=== PATIENT | male | born 1965 | race Caucasian/White ===

== ENCOUNTER 2023-01-08 21:51 | Inpatient (IN) | payer MEDICARE, SELFPAY ==
[2023-01-08 21:53] VITALS: BP 104/65; PULSE 150; RESP 15; TEMP 36.6; O2SAT 99; BMI 27.5
[2023-01-08 22:06] VITALS: PULSE 91; RESP 18; O2SAT 98
[2023-01-08 22:08] VITALS: BMI 29.7
--- NOTE | 2023-01-08 22:09 | EDS_ITS ---
HPI HPI - GI History of Present Illness Chief Complaint: GI Bleed Narrative Narrative: 57-year-old male past medical history of paroxysmal atrial fibrillation, not on medication or blood thinners, type 2 diabetes, presents with hematemesis that he had for approximately 15 minutes, multiple episodes. He states back in August, approximately 5 months ago he had 1 episode of vomiting bright red blood, then had dark stool for the next few days. It was a one-time thing and resolved. This evening, as he was getting ready to take a shower, he started vomiting blood. He denies any dark stools. States he vomited multiple times for 15 minutes and now feels lightheaded. He denies any chest pain or shortness of breath, no abdominal pain, no other symptoms. PFSH [facility] Medical History Chronic pain Diabetes mellitus type II, controlled, with no complications IBS (irritable bowel syndrome) Paroxysmal atrial fibrillation Persistent atrial fibrillation Allergy/AdvReac Type Severity Reaction Status Date / Time doxepin AdvReac Severe Itching Verified 11/10/17 11:06 enalapril AdvReac Other Verified 09/30/16 16:02 gabapentin [From Neurontin] AdvReac Other Verified 09/30/16 16:02 niacin AdvReac Other Verified 09/30/16 16:02 Cpqezrg-EWA-WwF Reductase AdvReac Pain in Verified 09/30/16 16:02 Inhibitor joints [Shqgqpz-Gai-Kon Reductase Inhibitor] Social History Smoking Status: Never smoker ROS ROS ED ROS Narrative Constitutional: No fever, no chills. HEENT: No sore throat. No neck pain. No loss of vision. No rhinorrhea. Cardiovascular: No chest pain. No palpitations. No pedal edema. Respiratory: No cough, no shortness of breath. Abdominal: No abdominal pain. Positive nausea and vomiting x15 minutes with hematemesis. No dark stool/black stool or melena Genitourinary: No dysuria. No hematuria. Musculoskeletal: No myalgias. No arthralgias. Neurologic: No headaches. No dizziness. Positive lightheadedness. Skin: No rash. No change in color. Psychiatric: No depression. No anxiety. EXAM Physical Exam Narrative Exam Narrative: Afebrile. Vital signs noted. HEENT: Normocephalic. Atraumatic. PERRL, EOMI. Neck soft and supple. No point tenderness or step off. Mild subconjunctival pallor. Cardiovascular: Regular rate and rhythm. No murmurs, rubs, or gallops appreciated. Respiratory: No tachypnea. Lungs clear to auscultation bilaterally. Gastrointestinal: Abdomen soft, nontender, with normoactive bowel sounds. No rebound or guarding. Neurological: Awake. Alert. Nonfocal, nonlateralizing. Skin: No rash. Normal color. No pallor of palms. Musculoskeletal: No pedal edema. Full range of motion extremities. Const Vital Signs: 01/08/23 21:53 01/08/23 22:06 01/08/23 22:19 Temperature 97.9 F Temperature Source Temporal Pulse Rate 150 H 91 Pulse Rate [Lying] 90 Pulse Rate [Sitting (for 1 minute prior to obtaining)] 87 Respiratory Rate 15 18 Blood Pressure 104/65 Blood Pressure [Lying] 72/51 L Blood Pressure [Sitting (for 1 minute prior to obtaining)] 66/44 L Blood Pressure Mean 78 Blood Pressure Mean [Lying] 58 Blood Pressure Mean [Sitting (for 1 minute prior to obtaining)] 51 Pulse Ox 99 98 Oxygen Delivery Method Room Air Room Air 01/08/23 22:57 Temperature 97.7 F L Temperature Source Temporal Pulse Rate 130 H Pulse Rate [Lying] Pulse Rate [Sitting (for 1 minute prior to obtaining)] Respiratory Rate 22 H Blood Pressure 93/77 Blood Pressure [Lying] Blood Pressure [Sitting (for 1 minute prior to obtaining)] Blood Pressure Mean 82 Blood Pressure Mean [Lying] Blood Pressure Mean [Sitting (for 1 minute prior to obtaining)] Pulse Ox 98 Oxygen Delivery Method Room Air MDM MDM MDM Narrative Medical decision making narrative: Concern is for upper GI bleeding from ulcer versus esophageal varices, however he states that he has not a large drinker of alcohol. He does not currently take blood thinners. NG will be inserted. I will obtain basic laboratory work to check for anemia and see if he has an elevated faded BUN. Coagulation studies will also be obtained. He intermittently had a tachycardia of atrial fibrillation but is currently rate controlled. I reviewed his prior record and laboratory work, he had normal hemoglobin at 1 time, I reviewed his labs today, he has a white count slightly elevated 11.2 which I think is nonspecific, hemoglobin 9.7, hematocrit 29.1, platelet count normal at 213. Coagulation studies show a normal INR of 1.4 with a PTT slightly elevated at 36.5. In review of his CMP, sodium is normal at 139, potassium 4.1, slightly elevated chloride of 108. He has a BUN of 22 with a normal creatinine of 0.87 consistent with upper GI bleed. Lipase is normal. AST slightly elevated at 39, ALT normal. Glucose is elevated at 178 consistent with diabetes, but he has a normal anion gap of 8. Orthostatics are positive in the sense that he dropped his blood pressure into the 70s systolic. With initial bolus, his blood pressure is 93 and he is mentating, but he did not become tachycardic on his orthostatics, but on the monitor, he went into atrial fibrillation intermittently with a heart rate in the 130s. NG was inserted with return of dark red blood. He was administered Protonix 80 mg bolus intravenou sly. Given his upper GI bleed, and hypotension, I discussed patient with the hospitalist, Dr. Darius Mosher, for admission and GI consultation. His blood pressure has improved with initial fluid bolus to 106 systolic. Patient is in stable condition. History & Record Review Discussion w/independent historian: Patient Additional record(s) reviewed:: Prior ED visit and Prior labs Lab Data Attestation: I reviewed the patient's lab results. Labs: Laboratory Results - last 24 hr 01/08/23 01/08/23 01/08/23 22:10 22:10 22:10 WBC 11.2 H RBC 3.41 L Hgb 9.7 L Hct 29.1 L MCV 85.3 MCH 28.4 MCHC 33.3 RDW Std Deviation 46.7 H RDW Coeff of Abimael 15.0 H Plt Count 213 MPV 11.4 Immature Gran % (Auto) 0.300 Neut % (Auto) 76.9 H Lymph % (Auto) 12.1 L [place] % (Auto) 8.7 Eos % (Auto) 1.3 Baso % (Auto) 0.7 Absolute Neuts (auto) 8.6 H Absolute Lymphs (auto) 1.35 Nucleated RBC % 0 PT 17.4 H INR 1.4 APTT 36.5 H Sodium 139 Potassium 4.1 Chloride 108 H Carbon Dioxide 23.0 Anion Gap 8 BUN 22 H Creatinine 0.87 Estim Creat Clear Calc 111.97 Est GFR (MDRD) Af Amer 116 Est GFR (MDRD) Non-Af 96 BUN/Creatinine Ratio 25.2 H Glucose 178 H Calcium 8.0 L Total Bilirubin 0.70 AST 39 H ALT 29 Alkaline Phosphatase 144 H Total Protein 6.7 Albumin 2.3 L Globulin 4.4 H Albumin/Globulin Ratio 0.5 L Lipase 27 Discharge Plan Triage Chief Complaint: GI Bleed ED Provider: Renan Dozier Dx/Rx/DC Orders Primary Care Provider: Care Physician,No Primary
[2023-01-08 22:19] VITALS: BP 66/44; BP 72/51; PULSE 87; PULSE 90
[2023-01-08 22:19] LABS: Absolute Lymphocyte Count 1.35 X10^3/uL (0.83-4.51); Absolute Neutrophil Count 8.6 X10^3/uL (2.0-7.7); Basophil# 0.08 X10^3/uL; Basophil% 0.7 % (0-1); Eosinophil# 0.15 X10^3/uL; Eosinophils% 1.3 % (0-5); Hematocrit 29.1 % (40-54); Hemoglobin 9.7 g/dL (13.0-16.5); Lymphocyte # 1.35 X10^3/ul (0.83-4.51); Lymphocyte % 12.1 % (19-41); Mean Corp Hgb Conc 33.3 g/dL (32-36); Mean Corpuscular Hgb 28.4 pg (27.0-32.0); Mean Corpuscular Volume 85.3 fL (80-94); Mean Platelet Vol. 11.4 fl (6.2-12.0); Monocyte# 0.97 X10^3/uL; Monocyte% 8.7 % (0-10); NRBC Flagged by Analyzer 0 % (0-5); Neutrophil # 8.57 X10^3/uL (2.7-7.7); Neutrophil % 76.9 % (47-70); Platelet Count 213 K/mm3 (150-450); RBC Distribution Width SD 46.7 fl (35.1-43.9); Red Blood Count 3.41 M/mm3 (4.6-6.2); White Blood Count 11.2 K/mm3 (4.4-11.0)
--- NOTE | 2023-01-08 22:33 | RAD_ITS ---
STUDY: X-RAY - ABDOMEN/PELVIS REASON FOR EXAM: Male, 57 years old. NG insertion. TECHNIQUE: A single AP view of the lower chest and upper abdomen. COMPARISON: September 30, 2016. FINDINGS: Normal visualized lung bases. There is an unremarkable bowel gas pattern. There is no demonstrated free abdominal air. There is an NG tube with its tip in the body of the stomach. The visualized liver, spleen and kidneys are grossly normal in size and morphology. Normal soft tissue structures. Normal visualized osseous structures. RAD/Abdomen Single View (Portable) IMPRESSION: NG tube as described. There is no acute cardiopulmonary disease or evidence of acute upper abdominal abnormality. Electronically Signed: Guevara Nick DO at 23:11 EDT ,
[2023-01-08 22:35] LABS: International Normalized Ratio 1.4; Prothrombin Time (Protime)PT. 17.4 SECONDS (11.7-14.9)
[2023-01-08 22:36] LABS: Partial Thromboplast Time 36.5 Seconds (24.1-36.2)
[2023-01-08 22:42] LABS: ALB/GLOB Ratio 0.5 RATIO (0.9-2.4); AST(SGOT) 39 U/L (15-37); Alanine Aminotransfer ALT/SGPT 29 U/L (16-61); Albumin, Serum 2.3 g/dL (3.2-5.0); Alkaline Phosphatase 144 U/L (45-117); Anion Gap 8 (5-15); BUN 22 mg/dL (7-18); BUN/Creat Ratio 25.2 RATIO (10-20); Chloride 108 mmol/L (98-107); Creatinine, Serum 0.87 mg/dL (0.70-1.30); EST Glomerular Filtration Rate 96 mL/min (>60); Est Glom Filt Rate - Afr Amer 116 mL/min (>60); Estimated Creatinine Clearance 111.97 ml/min; Globulin 4.4 g/dL (2.2-4.2); Glucose 178 mg/dL (74-106); Lipase 27 U/L (13-75); Potassium 4.1 mmol/L (3.5-5.1); Protein, Total 6.7 g/dL (6.4-8.2); Sodium Level 139 mmol/L (136-145)
[2023-01-08] MEDS: 0.9% Normal Saline 1,000 ML 1000 ML IV (22:45)
[2023-01-08] MEDS: Ondansetron 4 MG/2 ML Vial IV (22:45)
[2023-01-08 22:57] VITALS: BP 93/77; PULSE 130; RESP 22; TEMP 36.5; O2SAT 98
[2023-01-08 23:07] VITALS: BP 106/50; PULSE 133; RESP 22; O2SAT 97
[2023-01-08 23:25] LABS: AST(SGOT) 38 U/L (15-37); Alanine Aminotransfer ALT/SGPT 29 U/L (16-61); Albumin, Serum 2.3 g/dL (3.2-5.0); Alkaline Phosphatase 143 U/L (45-117); Bilirubin, Direct 0.21 mg/dL (0.00-0.30); Globulin 4.4 g/dL (2.2-4.2); Protein, Total 6.7 g/dL (6.4-8.2)
--- NOTE | 2023-01-08 23:29 | HP.PCM.HOS_ITS ---
HPI - General General Date of Admission: 01/08/23 Date of Service: 01/08/23 Chief Complaint: throwing up blood. HPI Narrative FIDE HODGSON, is a 57 M who presents with throwing up blood. This occured several times with about 75 cc blood in toilet, after vomiting. He presented to the ED this evening as a result, denies melena, denies symptoms in prior days and no dark bm previously. August, approximately 5 months ago he had 1 episode of v omiting bright red blood, then had dark stool for the next few days.?He had an endoscopy about 30 yrs ago for lactose intolerance investigation. he has IBS. He has gas and burping chronically. Is a lifetime ETOH user, about 2 shots of liquor a day at most, going periods without drinking. Does not follow with any doctors. NO prior knowledge of liver disease/cirrhosis. States abdomen swells due to the gas but doesn't recall any fluid such as acites. Does not have problems with leg swelling. He does not follow w/ a doctor. He is full code status. [facility] Medical History Chronic pain Diabetes mellitus type II, controlled, with no complications IBS (irritable bowel syndrome) Paroxysmal atrial fibrillation Persistent atrial fibrillation Allergy/AdvReac Type Severity Reaction Status Date / Time doxepin AdvReac Severe Itching Verified 11/10/17 11:06 enalapril AdvReac Other Verified 09/30/16 16:02 gabapentin [From Neurontin] AdvReac Other Verified 09/30/16 16:02 niacin AdvReac Other Verified 09/30/16 16:02 Omyptmp-SML-LlO Reductase AdvReac Pain in Verified 09/30/16 16:02 Inhibitor joints [Tqhssvz-Qcn-Ntq Reductase Inhibitor] Social History Smoking Status: Never smoker ROS ROS Narrative pertinent positives above in HPI Vital Signs Vital Signs Vital Signs: 01/08/23 21:53 01/08/23 22:06 01/08/23 22:19 Temperature 97.9 F Temperature Source Temporal Pulse Rate 150 H 91 Pulse Rate [Lying] 90 Pulse Rate [Sitting (for 1 minute prior to obtaining)] 87 Respiratory Rate 15 18 Blood Pressure 104/65 Blood Pressure [Lying] 72/51 L Blood Pressure [Sitting (for 1 minute prior to obtaining)] 66/44 L Blood Pressure Mean 78 Blood Pressure Mean [Lying] 58 Blood Pressure Mean [Sitting (for 1 minute prior to obtaining)] 51 Pulse Ox 99 98 Oxygen Delivery Method Room Air Room Air 01/08/23 22:57 01/08/23 23:07 Temperature 97.7 F L Temperature Source Temporal Pulse Rate 130 H 133 H Pulse Rate [Lying] Pulse Rate [Sitting (for 1 minute prior to obtaining)] Respiratory Rate 22 H 22 H Blood Pressure 93/77 106/50 L Blood Pressure [Lying] Blood Pressure [Sitting (for 1 minute prior to obtaining)] Blood Pressure Mean 82 68 Blood Pressure Mean [Lying] Blood Pressure Mean [Sitting (for 1 minute prior to obtaining)] Pulse Ox 98 97 Oxygen Delivery Method Room Air Room Air Weight Weight: 237 lb 10.533 oz Body Mass Index (BMI) 29.7 Results Lab / Micro Data Result Diagrams: 01/08/23 22:10 01/08/23 22:10 Labs: Laboratory Results - last 24 hr 01/08/23 22:10: WBC 11.2 H, RBC 3.41 L, Hgb 9.7 L, Hct 29.1 L, MCV 85.3, MCH 2 8.4, MCHC 33.3, RDW Std Deviation 46.7 H, RDW Coeff of Abimael 15.0 H, Plt Count 213, MPV 11.4, Immature Gran % (Auto) 0.300, Neut % (Auto) 76.9 H, Lymph % (Auto) 12.1 L, [place] % (Auto) 8.7, Eos % (Auto) 1.3, Baso % (Auto) 0.7, Absolute Neuts (auto) 8.6 H, Absolute Lymphs (auto) 1.35, Nucleated RBC % 0 01/08/23 22:10: PT 17.4 H, INR 1.4, APTT 36.5 H 01/08/23 22:10: Sodium 139, Potassium 4.1, Chloride 108 H, Carbon Dioxide 23.0, Anion Gap 8, BUN 22 H, Creatinine 0.87, Estim Creat Clear Calc 111.97, Est GFR (MDRD) Af Amer 116, Est GFR (MDRD) Non-Af 96, BUN/Creatinine Ratio 25.2 H, Glucose 178 H, Calcium 8.0 L, Total Bilirubin 0.70, AST 39 H, ALT 29, Alkaline Phosphatase 144 H, Total Protein 6.7, Albumin 2.3 L, Globulin 4.4 H, Albumin/Globulin Ratio 0.5 L, Lipase 27 01/08/23 22:10: Total Bilirubin 0.70, Direct Bilirubin 0.21, AST 38 H, ALT 29, Alkaline Phosphatase 143 H, Total Protein 6.7, Albumin 2.3 L, Globulin 4.4 H Radiology Impression KUB X-Ray 01/08/23 22:33 IMPRESSION: NG tube as described. There is no acute cardiopulmonary disease or evidence of acute upper abdominal abnormality. Electronically Signed: Guevara Nick DO at 23:11 EDT Reading Location ID and State: [facility] / [place] Tel [phone], Service support , Assessment & Plan Assessment/Plan (1) Paroxysmal atrial fibrillation: (2) Diabetes mellitus type II, controlled, with no complications: (3) Upper GI bleed: PLAN: Plan For upper GI bleed Continue NGT to [facility]WS Given alcohol use would consider cirrhosis and variceal hemorrhage. He has INR of 1.4 and platelets of 213. NPO status Ultrasound imaging tonight. IV PPI BID, just received 80 now Will obtain liver enzymes, no baseline here. Trend INR consult Gastroenterology Continue IV fluids at 125, bolus as needed. Paroxysmal A Fib - Was on Xarelto in past - Will resume beta jammie after acute hemorrhage event addressed - no AC at this time. Diabetes - SSI and glucose checks. Obtain A1c Charges/Coding Visit Charges Inpatient E&M: 57912 Init Hosp L3
--- NOTE | 2023-01-08 23:35 | EX.PCM.CON.G ---
HPI Consult Data Date of Consult: 01/08/23 HPI Narrative Reason for Consultation: Hematemesis HPI Narrative: FIED HODGSON, is a 57 M who presents with episodes of vomiting blood. He has a past medical history of alcoholism and possible cirrhosis. He also has a past medical history of paroxysmal atrial fibrillation, not on medication or blood thinners, type 2 diabetes, presents with hematemesis that he had for approximately 15 minutes, multiple episodes.? He states back in August, approximately 5 months ago he had 1 episode of vomiting bright red blood, then had dark stool for the next few days.? It was a one-time thing and resolved.? This evening, as he was getting ready to take a shower, he started vomiting blood.? He denies any dark stools.? States he vomited multiple times for 15 minutes and now feels lightheaded.? He denies any chest pain or shortness of breath, no abdominal pain, no other symptoms. Laboratory analysis displays: 01/08/23 22:10: WBC 11.2 H, RBC 3.41 L, Hgb 9.7 L, Hct 29.1 L, MCV 85.3, MCH 28.4, MCHC 33.3, RDW Std Deviation 46.7 H, RDW Coeff of Abimael 15.0 H, Plt Count 213, MPV 11.4, Immature Gran % (Auto) 0.300, Neut % (Auto) 76.9 H, Lymph % (Auto) 12.1 L, [place] % (Auto) 8.7, Eos % (Auto) 1.3, Baso % (Auto) 0.7, Absolute Neuts (auto) 8.6 H, Absolute Lymphs (auto) 1.35, Nucleated RBC % 0 01/08/23 22:10: PT 17.4 H, INR 1.4, APTT 36.5 H 01/08/23 22:10: Sodium 139, Potassium 4.1, Chloride 108 H, Carbon Dioxide 23.0, Anion Gap 8, BUN 22 H, Creatinine 0.87, Estim Creat Clear Calc 111.97, Est GFR (MDRD) Af Amer 116, Est GFR (MDRD) Non-Af 96, BUN/Creatinine Ratio 25.2 H, Glucose 178 H, Calcium 8.0 L, Total Bilirubin 0.70, AST 39 H, ALT 29, Alkaline Phosphatase 144 H, Total Protein 6.7, Albumin 2.3 L, Globulin 4.4 H, Albumin/Globulin Ratio 0.5 L, Lipase 27 01/08/23 22:10: Total Bilirubin 0.70, Direct Bilirubin 0.21, AST 38 H, ALT 29, Alkaline Phosphatase 143 H, Total Protein 6.7, Albumin 2.3 L, Globulin 4.4 H He was given Protonix in the ED [facility] Medical History Chronic pain Diabetes mellitus type II, controlled, with no complications IBS (irritable bowel syndrome) Paroxysmal atrial fibrillation Persistent atrial fibrillation Allergy/AdvReac Type Severity Reaction Status Date / Time doxepin AdvReac Severe Itching Verified 11/10/17 11:06 enalapril AdvReac Other Verified 09/30/16 16:02 gabapentin [From Neurontin] AdvReac Other Verified 09/30/16 16:02 niacin AdvReac Other Verified 09/30/16 16:02 Vmqlhat-DLC-VhV Reductase AdvReac Pain in Verified 09/30/16 16:02 Inhibitor joints [Bzavbbt-Sts-Kiz Reductase Inhibitor] Social History Smoking Status: Current every day smoker tobacco type: smokeless tobacco ROS ROS Narrative pertinent positives above in HPI Physical Exam Narrative Seen and examined. Patient admitted that his drinking behavior is erratic. General: Fatigue awake, oriented x3. HEENT: Atraumatic, PERRLA, EOMI, Normocephalic Oral: No Gingival or Mucosal Lesions/ Ulcerations Neck: Supple, No JVD, Negative Carotid Bruits Lungs: Air entry diminished in bilateral lung bases. No crepitation/rhonchi Cardiovascular:Atrial Fib with RVR, Normal S1, Normal S2, No murmurs Abdomen: Bowel Sounds Present, Soft, nontender. Abdomen mildly distended 6. Mild to moderate ascites, shifting dullness present. Spleen palpable. : No renal angle tenderness. No suprapubic tenderness. Extremities: No edema, Capillary Refill Less than 3 Seconds Skin: No rashes, No breakdown Musculoskeletal: No Tenderness to Palpation of Joints or Extremities Neurological: Cranial nerves II-XII grossly intact, DTR 2+/4 Psych/Mental Status: Lab / Micro Data Result Diagrams: 01/09/23 10:35 01/09/23 04:20 Labs: Laboratory Results - last 24 hr 01/08/23 22:10: WBC 11.2 H, RBC 3.41 L, Hgb 9.7 L, Hct 29.1 L, MCV 85.3, MCH 28.4, MCHC 33.3, RDW Std Deviation 46.7 H, RDW Coeff of Abimael 15.0 H, Plt Count 213, MPV 11.4, Immature Gran % (Auto) 0.300, Neut % (Auto) 76.9 H, Lymph % (Auto) 12.1 L, [place] % (Auto) 8.7, Eos % (Auto) 1.3, Baso % (Auto) 0.7, Absolute Neuts (auto) 8.6 H, Absolute Lymphs (auto) 1.35, Nucleated RBC % 0 01/08/23 22:10: PT 17.4 H, INR 1.4, APTT 36.5 H 01/08/23 22:10: Sodium 139, Potassium 4.1, Chloride 108 H, Carbon Dioxide 23.0, Anion Gap 8, BUN 22 H, Creatinine 0.87, Estim Creat Clear Calc 111.97, Est GFR (MDRD) Af Amer 116, Est GFR (MDRD) Non-Af 96, BUN/Creatinine Ratio 25.2 H, Glucose 178 H, Calcium 8.0 L, Total Bilirubin 0.70, AST 39 H, ALT 29, Alkaline Phosphatase 144 H, Total Protein 6.7, Albumin 2.3 L, Globulin 4.4 H, Albumin/Globulin Ratio 0.5 L, Lipase 27 01/08/23 22:10: Total Bilirubin 0.70, Direct Bilirubin 0.21, AST 38 H, ALT 29, Alkaline Phosphatase 143 H, Total Protein 6.7, Albumin 2.3 L, Globulin 4.4 H 01/09/23 01:21: Hgb 8.4 L 01/09/23 01:21: Blood Type A POSITIVE, Antibody Screen NEGATIVE 01/09/23 04:20: WBC 8.9, RBC 2.84 L, Hgb 8.1 L, Hct 24.6 L, MCV 86.6, MCH 28.5, MCHC 32.9, RDW Std Deviation 48.1 H, RDW Coeff of Abimael 15.3 H, Plt Count 155, MPV 11.6, Immature Gran % (Auto) 0.200, Neut % (Auto) 78.1 H, Lymph % (Auto) 11.2 L, [place] % (Auto) 9.4, Eos % (Auto) 0.7, Baso % (Auto) 0.4, Absolute Neuts (auto) 6.9, Absolute Lymphs (auto) 1.00, Nucleated RBC % 0 01/09/23 04:20: Sodium 141, Potassium 4.6, Chloride 112 H, Carbon Dioxide 24.0, Anion Gap 5, BUN 22 H, Creatinine 0.69 L, Estim Creat Clear Calc 141.17, Est GFR (MDRD) Af Amer 151, Est GFR (MDRD) Non-Af 125, BUN/Creatinine Ratio 31.8 H, Glucose 170 H, Calcium 7.2 L, Total Bilirubin 0.40, AST 30, ALT 25, Alkaline Phosphatase 123 H, Total Protein 5.8 L, Albumin 2.1 L, Globulin 3.7, Albumin/Globulin Ratio 0.6 L 01/09/23 04:20: PT 17.3 H, INR 1.4 01/09/23 04:20: Hemoglobin A1c 6.6 H 01/09/23 07:39: POC Glucose 158 H 01/09/23 10:35: Hgb 7.5 L 01/09/23 11:27: POC Glucose 145 H Radiology Impression KUB X-Ray 01/08/23 22:33 IMPRESSION: NG tube as described. There is no acute cardiopulmonary disease or evidence of acute upper abdominal abnormality. Electronically Signed: Guevara Nick DO at 23:11 EDT , Abdomen Ultrasound 01/09/23 06:00 IMPRESSION: Ascites. Marked degree of splenomegaly. Heterogeneous appearance of the liver with the scalloped border suggestive of cirrhosis. Electronically Signed: Del Avalos MD at 9:25 EDT , Assessment & Plan Assessment/Plan (1) Paroxysmal atrial fibrillation: (2) Diabetes mellitus type II, controlled, with no complications: (3) Upper GI bleed: PLAN: Plan For upper GI bleed 57-year-old gentleman with hematemesis and possible cirrhosis complicated by thrombocytopenia, coagulopathy, A-fib with RVR. He will need to undergo an emergent endoscopy to evaluate his upper GI tract. Recommend PPI drip, octreotide drip, ceftriaxone 1 g IV every 24 hours. Recommend ultrasound of the right upper quadrant. Checking for chronic hepatitis B and chronic hepatitis C. Keep MAP close to 60 as possible. He was explained alternatives, risk, benefits include not withstanding bleeding, infection, sepsis, perforation, need for emergent surgery . He will have an ASA of 3. Charges/Coding Visit Charges Inpatient E&M: 25231 Init Hosp L3
[2023-01-08] MEDS: 0.9% Normal Saline 1,000 ML 999 ML IV (23:40)
[2023-01-09] VITALS (47 sets, daily range): BP systolic 80–117; BP diastolic 46–94; PULSE 73–147; RESP 16–24; TEMP 35.9–37; O2SAT 70–100; BMI 30.3
[2023-01-09] MEDS: Ondansetron 4 MG/2 ML Vial 8 MG IV (01:25)
[2023-01-09] MEDS: Lactated Ringers 1,000 ML 100 ML IV (01:25)
[2023-01-09 01:33] LABS: Hemoglobin 8.4 g/dL (13.0-16.5)
[2023-01-09 04:29] LABS: Absolute Neutrophil Count 6.9 X10^3/uL (2.0-7.7); Basophil# 0.04 X10^3/uL; Basophil% 0.4 % (0-1); Eosinophil# 0.06 X10^3/uL; Eosinophils% 0.7 % (0-5); Hematocrit 24.6 % (40-54); Hemoglobin 8.1 g/dL (13.0-16.5); Lymphocyte % 11.2 % (19-41); Mean Corp Hgb Conc 32.9 g/dL (32-36); Mean Corpuscular Hgb 28.5 pg (27.0-32.0); Mean Corpuscular Volume 86.6 fL (80-94); Mean Platelet Vol. 11.6 fl (6.2-12.0); Monocyte# 0.84 X10^3/uL; Monocyte% 9.4 % (0-10); NRBC Flagged by Analyzer 0 % (0-5); Neutrophil # 6.93 X10^3/uL (2.7-7.7); Neutrophil % 78.1 % (47-70); Platelet Count 155 K/mm3 (150-450); RBC Distribution Width CV 15.3 % (11.6-14.6); RBC Distribution Width SD 48.1 fl (35.1-43.9); Red Blood Count 2.84 M/mm3 (4.6-6.2); White Blood Count 8.9 K/mm3 (4.4-11.0)
[2023-01-09 04:39] LABS: International Normalized Ratio 1.4; Prothrombin Time (Protime)PT. 17.3 SECONDS (11.7-14.9)
[2023-01-09 04:57] LABS: ALB/GLOB Ratio 0.6 RATIO (0.9-2.4); AST(SGOT) 30 U/L (15-37); Alanine Aminotransfer ALT/SGPT 25 U/L (16-61); Albumin, Serum 2.1 g/dL (3.2-5.0); Alkaline Phosphatase 123 U/L (45-117); Anion Gap 5 (5-15); BUN 22 mg/dL (7-18); BUN/Creat Ratio 31.8 RATIO (10-20); Calcium,Total 7.2 mg/dL (8.5-10.1); Chloride 112 mmol/L (98-107); Creatinine, Serum 0.69 mg/dL (0.70-1.30); EST Glomerular Filtration Rate 125 mL/min (>60); Est Glom Filt Rate - Afr Amer 151 mL/min (>60); Estimated Creatinine Clearance 141.17 ml/min; Globulin 3.7 g/dL (2.2-4.2); Glucose 170 mg/dL (74-106); Potassium 4.6 mmol/L (3.5-5.1); Protein, Total 5.8 g/dL (6.4-8.2); Sodium Level 141 mmol/L (136-145)
--- NOTE | 2023-01-09 06:00 | US_ITS ---
STUDY: ABDOMINAL ULTRASOUND REASON FOR EXAM: Male, 57 years old. Evaluate for cirrhosis and ascites. TECHNIQUE: Transabdominal ultrasound was performed with real-time and static manjarrez scale imaging. TECHNICAL QUALITY: Adequate. COMPARISON: None. FINDINGS: Liver: The liver measures 12.8 cm. The liver margins are scalloped suggestive of a cirrhotic change. There is a heterogeneous echogenicity of the liver. The bile ducts are within normal limits. There is hepatic color flow. The direction of portal flow is hepatopetal. There is no demonstrated mass lesion. Gallbladder: Normal distended gallbladder. The gallbladder wall is thickened and measures 5 mm. There is a negative sonographic Reyes''s sign. There is no pericholecystic fluid. There are no gallstones. Common Bile Duct (C.B.D.): The common bile duct measures 3 mm. Pancreas: There is nonvisualization of the pancreas due to overlying bowel gas. Spleen: There is splenomegaly. The spleen measures 19.2 cm x 4.6 cm x 4.6 cm. Right Kidney: Normal size of the right kidney. The right kidney measures 11.8 cm x 4.9 cm x 4.6 cm. Normal renal cortex. The right cortex measures 1.2 cm. There is no demonstrated renal mass or cyst. There is no right hydronephrosis. Left Kidney: Normal size of the left kidney. The left kidney measures 11.8 cm x 5 cm x 5 cm. Normal renal cortex. The left cortex measures 1.1 cm. There is no demonstrated renal mass or cyst. There is no left hydronephrosis. Aorta: Unremarkable I.V.C.: The IVC is patent. Moderate ascites. US/Abdomen Complete IMPRESSION: Ascites. Marked degree of splenomegaly. Heterogeneous appearance of the liver with the scalloped border suggestive of cirrhosis. Electronically Signed: Del Avalos MD at 9:25 EDT ,
[2023-01-09] MEDS: Metoclopramide 10 MG/2 ML Vial 5 MG IV ×2 (06:58→23:17)
[2023-01-09] MEDS: LORazepam 2 MG/ML Syringe 1 MG IV (06:59)
[2023-01-09] MEDS: 0.9% Saline Lock 10 ML Syringe IV ×2 (06:59→23:17)
--- NOTE | 2023-01-09 07:31 | PN.HOSP_ITS ---
Reason for Visit Reason for Visit: Diagnoses Type 2 diabetes mellitus without complications (01/08/23) Paroxysmal atrial fibrillation (01/08/23) Gastrointestinal hemorrhage, unspecified (01/08/23) Subjective Subjective Follow-up for acute upper GI bleed most likely variceal bleed. Objective Data Objective Data Vital Signs: Vital Signs Temp Pulse Resp BP Pulse Ox O2 Del Method 98.1 F 125 H 19 H 115/78 98 Room Air 01/09/23 04:00 01/09/23 07:00 01/09/23 07:00 01/09/23 07:00 01/09/23 07:00 01/09/23 07:00 Oxygen Delivery Method Room Air Weight: 242 lb 11.663 oz Body Mass Index (BMI) 30.3 Intake & Output: Intake and Output for Last 24 Hours 01/07/23 01/08/23 01/09/23 23:59 23:59 23:59 Intake Total 35 / 35 2099 / 2100 Output Total 30 / 30 Balance 35 / 35 2069 / 2069 Lab / Micro Data Result Diagrams: 01/09/23 04:20 01/09/23 04:20 Labs: Laboratory Results - last 24 hr 01/08/23 22:10: WBC 11.2 H, RBC 3.41 L, Hgb 9.7 L, Hct 29.1 L, MCV 85.3, MCH 28.4, MCHC 33.3, RDW Std Deviation 46.7 H, RDW Coeff of Abimael 15.0 H, Plt Count 213, MPV 11.4, Immature Gran % (Auto) 0.300, Neut % (Auto) 76.9 H, Lymph % (Auto) 12.1 L, Glascock % (Auto) 8.7, Eos % (Auto) 1.3, Baso % (Auto) 0.7, Absolute Neuts (auto) 8.6 H, Absolute Lymphs (auto) 1.35, Nucleated RBC % 0 01/08/23 22:10: PT 17.4 H, INR 1.4, APTT 36.5 H 01/08/23 22:10: Sodium 139, Potassium 4.1, Chloride 108 H, Carbon Dioxide 23.0, Anion Gap 8, BUN 22 H, Creatinine 0.87, Estim Creat Clear Calc 111.97, Est GFR (MDRD) Af Amer 116, Est GFR (MDRD) Non-Af 96, BUN/Creatinine Ratio 25.2 H, Glucose 178 H, Calcium 8.0 L, Total Bilirubin 0.70, AST 39 H, ALT 29, Alkaline Phosphatase 144 H, Total Protein 6.7, Albumin 2.3 L, Globulin 4.4 H, Albumin/Globulin Ratio 0.5 L, Lipase 27 01/08/23 22:10: Total Bilirubin 0.70, Direct Bilirubin 0.21, AST 38 H, ALT 29, Alkaline Phosphatase 143 H, Total Protein 6.7, Albumin 2.3 L, Globulin 4.4 H 01/09/23 01:21: Hgb 8.4 L 01/09/23 01:21: Blood Type A POSITIVE, Antibody Screen NEGATIVE 01/09/23 04:20: WBC 8.9, RBC 2.84 L, Hgb 8.1 L, Hct 24.6 L, MCV 86.6, MCH 28.5, MCHC 32.9, RDW Std Deviation 48.1 H, RDW Coeff of Abimael 15.3 H, Plt Count 155, MPV 11.6, Immature Gran % (Auto) 0.200, Neut % (Auto) 78.1 H, Lymph % (Auto) 11.2 L, Glascock % (Auto) 9.4, Eos % (Auto) 0.7, Baso % (Auto) 0.4, Absolute Neuts (auto) 6.9, Absolute Lymphs (auto) 1.00, Nucleated RBC % 0 01/09/23 04:20: Sodium 141, Potassium 4.6, Chloride 112 H, Carbon Dioxide 24.0, Anion Gap 5, BUN 22 H, Creatinine 0.69 L, Estim Creat Clear Calc 141.17, Est GFR (MDRD) Af Amer 151, Est GFR (MDRD) Non-Af 125, BUN/Creatinine Ratio 31.8 H, Glucose 170 H, Calcium 7.2 L, Total Bilirubin 0.40, AST 30, ALT 25, Alkaline Phosphatase 123 H, Total Protein 5.8 L, Albumin 2.1 L, Globulin 3.7, Albumin/Globulin Ratio 0.6 L 01/09/23 04:20: PT 17.3 H, INR 1.4 Radiography Diagnostic Testing: Radiology Impression KUB X-Ray 01/08/23 22:33 IMPRESSION: NG tube as described. There is no acute cardiopulmonary disease or evidence of acute upper abdominal abnormality. Electronically Signed: Guevara Nick DO at 23:11 EDT Reading Location ID and State: [address] [place] [address] Tel [phone], Service support , Physical Exam Narrative Seen and examined. Patient admitted that his drinking behavior is erratic. General: Fatigue awake, oriented x3. HEENT: Atraumatic, PERRLA, EOMI, Normocephalic Oral: No Gingival or Mucosal Lesions/ Ulcerations Neck: Supple, No JVD, Negative Carotid Bruits Lungs: Air entry diminished in bilateral lung bases. No crepitation/rhonchi Cardiovascular:Atrial Fib with RVR, Normal S1, Normal S2, No murmurs Abdomen: Bowel Sounds Present, Soft, nontender. Abdomen mildly distended 6. Mild to moderate ascites, shifting dullness present. Spleen palpable. : No renal angle tenderness. No suprapubic tenderness. Extremities: No edema, Capillary Refill Less than 3 Seconds Skin: No rashes, No breakdown Musculoskeletal: No Tenderness to Palpation of Joints or Extremities Neurological: Cranial nerves II-XII grossly intact, DTR 2+/4 Psych/Mental Status: Assessment & Plan Assessment/Plan (1) Paroxysmal atrial fibrillation: (2) Diabetes mellitus type II, controlled, with no complications: (3) Upper GI bleed: PLAN: Plan 53-year-old gentleman was admitted through ED for hematemesis, several times for about 15 minutes in the about the day of admission. As per documentation he threw up about 75 cc of blood in toilet. In August 2022 he had 1 episode of hematemesis and then dark blood for next few days. He had endoscopy 30 years ago for lactose intolerance investigation. He has history of IBS. He drinks alcohol about 2 shots of liquor at most every day but sometimes daily for 1 to 2 weeks and goes without drinking for 2 to 3 weeks. 1. Acute upper GI bleed most likely due to variceal bleed from chronic alcohol use disorder: Patient is being admitted in ICU. At time of admission NG tube was inserted with on low intermittent suction.Patient had 130 mm gastric drainage, altered blood. Upon stiffed 2 L charted. Continue NGT to low intermittent suction Given alcohol use would consider cirrhosis and variceal hemorrhage. He has INR of 1.4 and platelets of 213. No urine output charted. Currently patient is n.p.o. Discussed with nursing staff. Patient having right upper quadrant sonogram but on images liver looks nodular a small cirrhotic with mild to moderate ascites. Splenomegaly present. Management: Pantoprazole 80 mg IV stat and then 40 mg IV twice daily. Started on octreotide drip, ceftriaxone and IV esmolol drip. Patient's heart rate fluctuates between 130 to 150 , A-fib with RVR therefore requires IV esmolol drip. Discussed with the crosscutter rolled glass. 2. Chronic alcohol use disorder with decompensated alcoholic cirrhosis: On ultrasound images, liver is nodular cirrhotic, ascites and splenomegaly. AST mildly elevated ALT normal. Alkaline phosphatase elevated. Total bilirubin normal. Hypoalbuminemia at 2.3, A/G ratio 0.5 and INR elevated 1.4. 2. Paroxysmal A Fib with RVR probably exacerbated by acute GI bleed as mentioned above: Patient was on Xarelto in the past but currently not on anticoagulant or antiplatelet agent. Started on IV esmolol drip as mentioned above 3. Diabetes mellitus type II: Accu-Cheks every 6 hourly and cover with Humalog sliding scale 4. Other comorbidities include IBS Total time of the visit including total time spent in counseling or coordination of care, (more than 50% of the total time, spent in obtaining medical information from nurses and other ancillary care providers,explaining to the patient about labs, imaging, diagnosis and management of active complex medical conditions), critical care management of acute variceal bleeding with cardiac decompensation, discussion with crosscutter rolled glass, review of labs and imaging is 60 minutes. Laboratory Results 01/08/23 22:10: WBC 11.2 H, RBC 3.41 L, Hgb 9.7 L, Hct 29.1 L, MCV 85.3, MCH 28.4, MCHC 33.3, RDW Std Deviation 46.7 H, RDW Coeff of Abimael 15.0 H, Plt Count 213, MPV 11.4, Immature Gran % (Auto) 0.300, Neut % (Auto) 76.9 H, Lymph % (Auto) 12.1 L, Glascock % (Auto) 8.7, Eos % (Auto) 1.3, Baso % (Auto) 0.7, Absolute Neuts (auto) 8.6 H, Absolute Lymphs (auto) 1.35, Nucleated RBC % 0 01/08/23 22:10: PT 17.4 H, INR 1.4, APTT 36.5 H 01/08/23 22:10: Sodium 139, Potassium 4.1, Chloride 108 H, Carbon Dioxide 23.0, Anion Gap 8, BUN 22 H, Creatinine 0.87, Estim Creat Clear Calc 111.97, Est GFR (MDRD) Af Amer 116, Est GFR (MDRD) Non-Af 96, BUN/Creatinine Ratio 25.2 H, Glucose 178 H, Calcium 8.0 L, Total Bilirubin 0.70, AST 39 H, ALT 29, Alkaline Phosphatase 144 H, Total Protein 6.7, Albumin 2.3 L, Globulin 4.4 H, Albumin/Globulin Ratio 0.5 L, Lipase 27 01/08/23 22:10: Total Bilirubin 0.70, Direct Bilirubin 0.21, AST 38 H, ALT 29, Alkaline Phosphatase 143 H, Total Protein 6.7, Albumin 2.3 L, Globulin 4.4 H 01/09/23 01:21: Hgb 8.4 L 01/09/23 01:21: Blood Type A POSITIVE, Antibody Screen NEGATIVE 01/09/23 04:20: WBC 8.9, RBC 2.84 L, Hgb 8.1 L, Hct 24.6 L, MCV 86.6, MCH 28.5, MCHC 32.9, RDW Std Deviation 48.1 H, RDW Coeff of Abimael 15.3 H, Plt Count 155, MPV 11.6, Immature Gran % (Auto) 0.200, Neut % (Auto) 78.1 H, Lymph % (Auto) 11.2 L, Glascock % (Auto) 9.4, Eos % (Auto) 0.7, Baso % (Auto) 0.4, Absolute Neuts (auto) 6.9, Absolute Lymphs (auto) 1.00, Nucleated RBC % 0 01/09/23 04:20: Sodium 141, Potassium 4.6, Chloride 112 H, Carbon Dioxide 24.0, Anion Gap 5, BUN 22 H, Creatinine 0.69 L, Estim Creat Clear Calc 141.17, Est GFR (MDRD) Af Amer 151, Est GFR (MDRD) Non-Af 125, BUN/Creatinine Ratio 31.8 H, Glucose 170 H, Calcium 7.2 L, Total Bilirubin 0.40, AST 30, ALT 25, Alkaline Phosphatase 123 H, Total Protein 5.8 L, Albumin 2.1 L, Globulin 3.7, Albumin/Globulin Ratio 0.6 L 01/09/23 04:20: PT 17.3 H, INR 1.4 01/09/23 04:20: Hemoglobin A1c Pending Clinical Impression(s) from Imaging Studies KUB X-Ray 01/08/23 22:33 IMPRESSION: NG tube as described. There is no acute cardiopulmonary disease or evidence of acute upper abdominal abnormality. Charges/Coding Procedures Hospitalists Procedures: [id number]
[2023-01-09 08:08] LABS: Bedside Glucose 158 mg/dL (74-106)
[2023-01-09] MEDS: KCL 20MEQ in 0.45%NS 20 MEQ/1,000 ML IV.SOLN. 100 MEQ IV ×2 (08:40→17:41)
[2023-01-09] MEDS: Ceftriaxone 1 GM/50 ML BAG IV (08:49)
[2023-01-09] MEDS: Esmolol 2,500 MG/250 ML IV.SOLN. 33 MG CONT INF (09:08)
--- NOTE | 2023-01-09 09:28 | NURSING ---
attempted 16Fr urinary catheter unable to pass urethra, second RN Nola attempted, unsuccessful. 0900- 12Fr urinary catheter placed successfully
[2023-01-09 09:50] LABS: Hemoglobin A1c 6.6 % (3.8-5.6)
--- NOTE | 2023-01-09 11:04 | CASEMGMT ---
RN?CM?HOSPITAL CLERK?CM?to room to meet with patient for initial transition planning/care coordination?assessment.?RN?CM?introduced self and role at [facility].? Pt voices understanding and consents to?assessment?at this time.? Pt resting in bed in no distress at this time.? Pt is A/O at this time and answers all questions appropriately.?? Care providers, pharmacy, and demographics verified/updated at this time. PCP: No PCP. Pt provided w/local Physician's Directory list. Specialists: none Preferred Pharmacy: [facility] Insurance: Emma SAMANO Prescription Benefit:?Yes Living Will/HPOA:?Pt states he picked up paperwork to complete POA in the past and is not certain what all he completed. He would like his fiRadha callahan, to be his HCPOA. RN GEOVANY informed him SW can assist w/completing document while @ [facility]. He states is interested in completing when he is feeling better. Tasha MURRY, made aware. LNOK: Pt states he is , has no children, and his parents are . He states he has 4 siblings but states, I only claim one of them. Radha Sagastume Living Arrangements: Lives w/Radha and twin dtr's/ages 15 in mobile home w/3 steps to enter. Denies difficulty w/stairs. Independent. Transportation:?Pt states drives self and states no transportation concerns at this time.? DME: Pt states he has a functioning glucometer and thinks he has all the needed supplies for it. HHC/SNF: No hx of either. No needs identified. Pt denies needs at this time. Pt wishes to return home and states has no concerns with going home at time of discharge.? Pt states he chews tobacco and drinks 2 shots of liquor a day, if that. CM?to follow for any further discharge planning/needs.? Pt voices no further concerns/needs at this time.? Advised pt to ask for?CM?if any further questions/concerns/needs arise.? Voices understanding. PLAN:??Home SW to see for ETOH use and AD. Kylie BSN?RN?CM
[2023-01-09 11:18] LABS: Hemoglobin 7.5 g/dL (13.0-16.5)
[2023-01-09] MEDS: Esmolol 2,500 MG/250 ML IV.SOLN. 132.1 MG CONT INF (11:30)
--- NOTE | 2023-01-09 11:41 | EKG12_ITS ---
Test Reason : NSR Blood Pressure : / mmHG Vent. Rate : 077 BPM Atrial Rate : 077 BPM P-R Int : 176 ms QRS Dur : 098 ms QT Int : 406 ms P-R-T Axes : 051 039 021 degrees QTc Int : 459 ms Normal sinus rhythm Low voltage QRS Borderline ECG When compared with ECG of 30-SEP-2016 14:39, Sinus rhythm has replaced Atrial fibrillation QRS voltage has decreased Confirmed by LIZZ GALVEZ, KEVIN ([id number]), editor magazine BURT GOODE ([id number]) on 01/22/2023 12:24:55 PM Referred By: Eliezer Loomsi Confirmed By:KEVIN ZAMUDIO MD
[2023-01-09 11:48] LABS: Bedside Glucose 145 mg/dL (74-106)
--- NOTE | 2023-01-09 12:55 | NURSING ---
Transferred patient to endo at this time
--- NOTE | 2023-01-09 14:24 | OP.CCLET_ITS ---
01/09/2023 No Primary Care Physician Re : Upper GI endoscopy procedure for Alan Padilla Dear Care Physician This procedure was performed on January. My impressions and recommendations are as follows: Impressions : - Grade III esophageal varices. Incompletely eradicated. Banded. - A large amount of food (residue) in the stomach. Removal was successful. - Red blood in the entire stomach. - Type 1 isolated gastric varices (IGV1, varices located in the fundus), oozing blood. Incompletely eradicated. Banded. - Blood in the duodenal bulb. Recommendations : - Return patient to ICU for ongoing care. - Give Protonix (pantoprazole): initiate therapy with 80 mg IV bolus, then 8 mg/hr IV by continuous infusion. - Administer an IV bolus of 50 micrograms of octreotide followed by an infusion of 50 micrograms per hour. - Use Reglan (metoclopramide) 10 mg IV QID. - Use erythromycin 500 mg IV q 8 hr. - Continue present medications. My findings are described in the full procedure note, which is enclosed. If I can be of further assistance, please feel free to contact me at . Sincerely, Eliezer Loomis, 01/09/2023 2:23:44 PM This report has been signed electronically.
--- NOTE | 2023-01-09 14:24 | OP.EGD_ITS ---
Patient Name: Alan Padilla Procedure Date: 01/09/2023 1:12 PM Date of : 1965 Age: 57 Procedure: Upper GI endoscopy Indications: Cirrhosis with UGI bleeding suspected esophageal varices Providers: Eliezer Loomis DO Medicines: Monitored Anesthesia Care Patient Profile: This is a 57 year old male. Refer to note in patient chart for documentation of history and physical. Patient has symptoms of acute vomiting. Complications: No immediate complications. Procedure: Pre-Anesthesia Assessment: - Prior to the procedure, a History and Physical was performed, and patient medications and allergies were reviewed. The risks and benefits of the procedure and the sedation options and risks were discussed with the patient. All questions were answered and informed consent was obtained. Patient identification and proposed procedure were verified. Mental Status Examination: normal. Airway Examination: normal oropharyngeal airway and neck mobility. Respiratory Examination: clear to auscultation. Prophylactic Antibiotics: The patient does not require prophylactic antibiotics. Prior Anticoagulants: The patient has taken no previous anticoagulant or antiplatelet agents. ASA Grade Assessment: IV - A patient with severe systemic disease that is a constant threat to life. After reviewing the risks and benefits, the patient was deemed in satisfactory condition to undergo the procedure. The anesthesia plan was to use monitored anesthesia care (MAC). Immediately prior to administration of medications, the patient was re-assessed for adequacy to receive sedatives. The heart rate, respiratory rate, oxygen saturations, blood pressure, adequacy of pulmonary ventilation, and response to care were monitored throughout the procedure. The physical status of the patient was re-assessed after the procedure. After obtaining informed consent, the endoscope was passed under direct vision. Throughout the procedure, the patient's blood pressure, pulse, and oxygen saturations were monitored continuously. The gastroscope was introduced through the mouth, and advanced to the second part of duodenum. The upper GI endoscopy was accomplished without difficulty. The patient tolerated the procedure well. Scope In: 1:24:06 PM Scope Out: 2:15:57 PM Total Procedure Duration Time 0 hours 51 minutes 51 seconds Findings: Grade III varices were found in the upper third of the esophagus, in the middle third of the esophagus and in the lower third of the esophagus. They were 39 mm in largest diameter. Five bands were successfully placed with incomplete eradication of varices. Bleeding had stopped at the end of the procedure. A large amount of food (residue) was found in the gastric body. Removal of food was accomplished. Red blood was found in the entire examined stomach. Type 1 isolated gastric varices (IGV1, varices located in the fundus) with oozing blood were found in the gastric fundus. There were stigmata of recent bleeding. They were 7 mm in largest diameter. Two bands were successfully placed with incomplete eradication of varices. Bleeding had stopped at the end of the procedure. Hematin (altered blood/ktcyly-gzwzwq-ihqb material) was found in the duodenal bulb. Impression: - Grade III esophageal varices. Incompletely eradicated. Banded. - A large amount of food (residue) in the stomach. Removal was successful. - Red blood in the entire stomach. - Type 1 isolated gastric varices (IGV1, varices located in the fundus), oozing blood. Incompletely eradicated. Banded. - Blood in the duodenal bulb. Recommendation: - Return patient to ICU for ongoing care. - Give Protonix (pantoprazole): initiate therapy with 80 mg IV bolus, then 8 mg/hr IV by continuous infusion. - Administer an IV bolus of 50 micrograms of octreotide followed by an infusion of 50 micrograms per hour. - Use Reglan (metoclopramide) 10 mg IV QID. - Use erythromycin 500 mg IV q 8 hr. - Continue present medications. Procedure Code(s): --- Professional --- 29476, Esophagogastroduodenoscopy, flexible, transoral; with band ligation of esophageal/gastric varices 51586, Esophagogastroduodenoscopy, flexible, transoral; with removal of foreign body(s) CPT copyright 2017 [employer]. All rights reserved. The codes documented in this report are preliminary and upon final coat sprayer review may be revised to meet current compliance requirements. Eliezer Loomis DO 01/09/2023 2:23:44 PM This report has been signed electronically. Number of Addenda: 0 Note Initiated On: 01/09/2023 1:12 PM
[2023-01-09] MEDS: Metoprolol Tartrate 5 MG/5 ML Vial IV ×2 (17:43→23:17)
[2023-01-09 17:48] LABS: Bedside Glucose 141 mg/dL (74-106)
[2023-01-09 23:42] LABS: Bedside Glucose 149 mg/dL (74-106)
[2023-01-10] VITALS (29 sets, daily range): BP systolic 76–135; BP diastolic 49–79; PULSE 73–88; RESP 13–25; TEMP 36.5–37.1; O2SAT 93–100; BMI 30.7
[2023-01-10 04:13] LABS: Absolute Lymphocyte Count 1.41 X10^3/uL (0.83-4.51); Absolute Neutrophil Count 8.1 X10^3/uL (2.0-7.7); Basophil# 0.07 X10^3/uL; Basophil% 0.6 % (0-1); Eosinophil# 0.25 X10^3/uL; Eosinophils% 2.3 % (0-5); Hematocrit 22.6 % (40-54); Hemoglobin 7.3 g/dL (13.0-16.5); Lymphocyte # 1.41 X10^3/ul (0.83-4.51); Lymphocyte % 12.9 % (19-41); Mean Corp Hgb Conc 32.3 g/dL (32-36); Mean Corpuscular Hgb 28.3 pg (27.0-32.0); Mean Corpuscular Volume 87.6 fL (80-94); Mean Platelet Vol. 11.1 fl (6.2-12.0); Monocyte# 1.09 X10^3/uL; NRBC Flagged by Analyzer 0 % (0-5); Neutrophil # 8.05 X10^3/uL (2.7-7.7); Neutrophil % 73.7 % (47-70); Platelet Count 152 K/mm3 (150-450); RBC Distribution Width CV 15.6 % (11.6-14.6); RBC Distribution Width SD 49.2 fl (35.1-43.9); Red Blood Count 2.58 M/mm3 (4.6-6.2); White Blood Count 10.9 K/mm3 (4.4-11.0)
[2023-01-10 04:24] LABS: International Normalized Ratio 1.4; Prothrombin Time (Protime)PT. 17.1 SECONDS (11.7-14.9)
[2023-01-10 04:30] LABS: ALB/GLOB Ratio 0.6 RATIO (0.9-2.4); AST(SGOT) 55 U/L (15-37); Alanine Aminotransfer ALT/SGPT 39 U/L (16-61); Albumin, Serum 2.1 g/dL (3.2-5.0); Alkaline Phosphatase 107 U/L (45-117); Anion Gap 5 (5-15); BUN 26 mg/dL (7-18); BUN/Creat Ratio 29.7 RATIO (10-20); Calcium,Total 7.5 mg/dL (8.5-10.1); Chloride 112 mmol/L (98-107); Creatinine, Serum 0.87 mg/dL (0.70-1.30); EST Glomerular Filtration Rate 95 mL/min (>60); Est Glom Filt Rate - Afr Amer 115 mL/min (>60); Estimated Creatinine Clearance 111.97 ml/min; Globulin 3.4 g/dL (2.2-4.2); Glucose 134 mg/dL (74-106); Potassium 4.5 mmol/L (3.5-5.1); Protein, Total 5.5 g/dL (6.4-8.2); Sodium Level 142 mmol/L (136-145)
[2023-01-10] MEDS: Metoprolol Tartrate 5 MG/5 ML Vial IV ×3 (06:10→18:12)
[2023-01-10] MEDS: 0.9% Saline Lock 10 ML Syringe IV ×4 (06:10→18:10)
[2023-01-10] MEDS: Metoclopramide 10 MG/2 ML Vial 5 MG IV (06:10)
--- NOTE | 2023-01-10 08:40 | PN.HOSP_ITS ---
Subjective Subjective Doing well, no issues overnight. Scope yesterday demonstrated multiple variceal bleeds that had to be banded Objective Data Objective Data Vital Signs: Vital Signs Temp Pulse Resp BP Pulse Ox O2 Del Method O2 Flow Rate 97.8 F 85 20 H 102/56 L 100 Room Air 2 01/10/23 08:00 01/10/23 08:00 01/10/23 08:00 01/10/23 08:00 01/10/23 08:00 01/10/23 08:00 01/10/23 08:00 Oxygen Flow Rate (L/min) 2 Oxygen Delivery Method Room Air Weight: 245 lb 5.992 oz Body Mass Index (BMI) 30.7 Intake & Output: Intake and Output for Last 24 Hours 01/09/23 01/10/23 01/11/23 03:59 03:59 03:59 Intake Total 5 / 5 2362.29 / 2362.29 Output Total 1455 / 1455 600 / 600 Balance 2034 / 2034 907.29 / 907.29 -600 / -600 Lab / Micro Data Result Diagrams: 01/10/23 04:05 01/10/23 04:05 Labs: Laboratory Results - last 24 hr 01/09/23 01:21: Crossmatch See Detail 01/09/23 04:20: Hemoglobin A1c 6.6 H 01/09/23 10:35: Hgb 7.5 L 01/09/23 11:27: POC Glucose 145 H 01/09/23 16:04: POC Glucose 141 H 01/09/23 23:16: POC Glucose 149 H 01/10/23 04:05: WBC 10.9, RBC 2.58 L, Hgb 7.3 L, Hct 22.6 L, MCV 87.6, MCH 28.3, MCHC 32.3, RDW Std Deviation 49.2 H, RDW Coeff of Abimael 15.6 H, Plt Count 152, MPV 11.1, Immature Gran % (Auto) 0.500, Neut % (Auto) 73.7 H, Lymph % (Auto) 12.9 L, [place] % (Auto) 10.0, Eos % (Auto) 2.3, Baso % (Auto) 0.6, Absolute Neuts (auto) 8.1 H, Absolute Lymphs (auto) 1.41, Nucleated RBC % 0 01/10/23 04:05: Sodium 142, Potassium 4.5, Chloride 112 H, Carbon Dioxide 25.0, Anion Gap 5, BUN 26 H, Creatinine 0.87, Estim Creat Clear Calc 111.97, Est GFR (MDRD) Af Amer 115, Est GFR (MDRD) Non-Af 95, BUN/Creatinine Ratio 29.7 H, Glucose 134 H, Calcium 7.5 L, Total Bilirubin 1.10 H, AST 55 H, ALT 39, Alkaline Phosphatase 107, Total Protein 5.5 L, Albumin 2.1 L, Globulin 3.4, Albumin/Globulin Ratio 0.6 L 01/10/23 04:05: PT 17.1 H, INR 1.4 Radiography Diagnostic Testing: Radiology Impression Abdomen Ultrasound 01/09/23 06:00 IMPRESSION: Ascites. Marked degree of splenomegaly. Heterogeneous appearance of the liver with the scalloped border suggestive of cirrhosis. Electronically Signed: Del Avalos MD at 9:25 EDT , Physical Exam Narrative General: Drowsy, Oriented x3, Cooperative, No apparent distress HEENT: Atraumatic, PERRLA, EOMI, Normocephalic Oral: Moist Mucosa Neck: Supple, No JVD Lungs: Diminished, Normal air movement, No rhonchi, No wheeze, No rales Cardiovascular: Regular rate, Regular Rhythm, Normal S1, Normal S2, No murmurs Abdomen: Soft, Non Tender, slight distention, spleen enlargement Extremities: No edema, Capillary Refill Less than 3 Seconds Skin: No rashes, No breakdown Musculoskeletal: No Tenderness to Palpation of Joints or Extremities Neurological: Cranial nerves II-XII grossly intact, Motor Exam 5/5 strength throughout, Sensory exam intact to light touch and pain Psych/Mental Status: Flat Assessment & Plan Assessment/Plan (1) Paroxysmal atrial fibrillation: (2) Diabetes mellitus type II, controlled, with no complications: (3) Upper GI bleed: PLAN: Plan 53-year-old gentleman was admitted through ED for hematemesis, several times for about 15 minutes in the about the day of admission. As per documentation he threw up about 75 cc of blood in toilet. In August 2022 he had 1 episode of hematemesis and then dark blood for next few days. He had endoscopy 30 years ago for lactose intolerance investigation. He has history of IBS. He drinks alcohol about 2 shots of liquor at most every day but sometimes daily for 1 to 2 weeks and goes without drinking for 2 to 3 weeks. 1. Acute upper GI bleed most likely due to variceal bleed from chronic alcohol use disorder: Patient is being admitted in ICU. At time of admission NG tube was inserted with on low intermittent suction.Patient had 130 mm gastric drainage, altered blood. Upon stiffed 2 L charted. Continue NGT to low intermittent suction Given alcohol use would consider cirrhosis and variceal hemorrhage. He has INR of 1.4 and platelets of 213. No urine output charted. Currently patient is n.p.o. Discussed with nursing staff. Patient having right upper quadrant sonogram but on images liver looks nodular a small cirrhotic with mild to moderate ascites. Splenomegaly present. Management: Pantoprazole 80 mg IV stat and then 40 mg IV twice daily. Started on octreotide drip, ceftriaxone and IV esmolol drip. Patient's heart rate fluctuates between 130 to 150 , A-fib with RVR therefore requires IV esmolol drip. Discussed with the furniture repair technician. 6/2: Hemoglobin today 7.3 so appears stable, will recheck H&H at 1 PM and transfuse if necessary. 2. Chronic alcohol use disorder with decompensated alcoholic cirrhosis: On ultrasound images, liver is nodular cirrhotic, ascites and splenomegaly. AST mildly elevated ALT normal. Alkaline phosphatase elevated. Total bilirubin normal. Hypoalbuminemia at 2.3, A/G ratio 0.5 and INR elevated 1.4. 2. Paroxysmal A Fib with RVR probably exacerbated by acute GI bleed as mentioned above: Patient was on Xarelto in the past but currently not on anticoagulant or antiplatelet agent. Started on IV esmolol drip as mentioned above 6/2: Heart rate is stable and appears regular, continue with a small 3. Diabetes mellitus type II: Accu-Cheks every 6 hourly and cover with Humalog sliding scale 6/2: We will monitor and make adjustments as necessary 4. Other comorbidities include IBS DVT: SCDs Charges/Coding Visit Charges Inpatient E&M: 18462 Subs Hosp L2
--- NOTE | 2023-01-10 09:21 | CASEMGMT ---
Addendum entered by Lesa Nolan 01/10/23 10:23: Social Work SW did not speak w/pt about ETOH at this time due to pt not being able to stay awake during conversation. SW will follow up w/pt about ETOH when appropriate as time allows. MATIAS Keys Original Note: Social Work SW met w/pt briefly, pt not keeping eyes open during conversation enough to be fully engaged. SW did speak w/pt briefly about LW/POA, pt not up for doing the documents at present. SW explained will leave the papers for him with the SW number, should he want to complete them later in the stay or after discharge. Pt states understanding, documents left for pt. MATIAS Keys
[2023-01-10] MEDS: Ceftriaxone 1 GM/50 ML BAG IV (09:27)
[2023-01-10 11:29] LABS: Bedside Glucose 148 mg/dL (74-106)
[2023-01-10 13:12] LABS: Hematocrit 21.7 % (40-54)
--- NOTE | 2023-01-10 16:40 | EX.PCM.PN.GI ---
Subjective Subjective No problems overnight. He did not have any black stools. He denied any more hematemesis. He underwent EGD yesterday and was discovered to have an upper GI bleed. Objective Data Objective Data Vital Signs: Vital Signs Temp Pulse Resp BP Pulse Ox O2 Del Method O2 Flow Rate 98.2 F 74 16 117/59 L 96 Nasal Cannula 1 01/10/23 16:00 01/10/23 16:00 01/10/23 16:00 01/10/23 16:00 01/10/23 16:00 01/10/23 16:00 01/10/23 16:00 Oxygen Flow Rate (L/min) 1 Oxygen Delivery Method Nasal Cannula Weight: 245 lb 5.992 oz Body Mass Index (BMI) 30.7 Intake & Output: Intake and Output for Last 24 Hours 01/08/23 01/09/23 01/10/23 23:59 23:59 23:59 Intake Total 35 / 35 3641.42 / 3641.42 970.87 / 970.87 Output Total 1455 / 1455 900 / 900 Balance 35 / 35 2186.42 / 2186.42 70.87 / 70.87 Lab / Micro Data Result Diagrams: 01/10/23 13:00 01/10/23 04:05 Labs: Laboratory Results - last 24 hr 01/09/23 01:21: Crossmatch See Detail 01/09/23 16:04: POC Glucose 141 H 01/09/23 23:16: POC Glucose 149 H 01/10/23 04:05: WBC 10.9, RBC 2.58 L, Hgb 7.3 L, Hct 22.6 L, MCV 87.6, MCH 28.3, MCHC 32.3, RDW Std Deviation 49.2 H, RDW Coeff of Abimael 15.6 H, Plt Count 152, MPV 11.1, Immature Gran % (Auto) 0.500, Neut % (Auto) 73.7 H, Lymph % (Auto) 12.9 L, [place] % (Auto) 10.0, Eos % (Auto) 2.3, Baso % (Auto) 0.6, Absolute Neuts (auto) 8.1 H, Absolute Lymphs (auto) 1.41, Nucleated RBC % 0 01/10/23 04:05: Sodium 142, Potassium 4.5, Chloride 112 H, Carbon Dioxide 25.0, Anion Gap 5, BUN 26 H, Creatinine 0.87, Estim Creat Clear Calc 111.97, Est GFR (MDRD) Af Amer 115, Est GFR (MDRD) Non-Af 95, BUN/Creatinine Ratio 29.7 H, Glucose 134 H, Calcium 7.5 L, Total Bilirubin 1.10 H, AST 55 H, ALT 39, Alkaline Phosphatase 107, Total Protein 5.5 L, Albumin 2.1 L, Globulin 3.4, Albumin/Globulin Ratio 0.6 L 01/10/23 04:05: PT 17.1 H, INR 1.4 01/10/23 11:02: POC Glucose 148 H 01/10/23 13:00: Hgb 7.0 L, Hct 21.7 L Physical Exam Narrative General: Drowsy, Oriented x3, Cooperative, No apparent distress HEENT: Atraumatic, PERRLA, EOMI, Normocephalic Oral: Moist Mucosa Neck: Supple, No JVD Lungs: Diminished, Normal air movement, No rhonchi, No wheeze, No rales Cardiovascular: Regular rate, Regular Rhythm, Normal S1, Normal S2, No murmurs Abdomen: Soft, Non Tender, slight distention, spleen enlargement Extremities: No edema, Capillary Refill Less than 3 Seconds Skin: No rashes, No breakdown Musculoskeletal: No Tenderness to Palpation of Joints or Extremities Neurological: Cranial nerves II-XII grossly intact, Motor Exam 5/5 strength throughout, Sensory exam intact to light touch and pain Psych/Mental Status: Flat Assessment & Plan Assessment/Plan (1) Paroxysmal atrial fibrillation: (2) Diabetes mellitus type II, controlled, with no complications: (3) Upper GI bleed: PLAN: Plan For upper GI bleed 57-year-old gentleman with hematemesis and possible cirrhosis complicated by thrombocytopenia, coagulopathy, A-fib with RVR. He will need to undergo an emergent endoscopy to evaluate his upper GI tract. Recommend PPI drip, octreotide drip, ceftriaxone 1 g IV every 24 hours. Recommend ultrasound of the right upper quadrant. Checking for chronic hepatitis B and chronic hepatitis C. Keep MAP close to 60 as possible. He was explained alternatives, risk, benefits include not withstanding bleeding, infection, sepsis, perforation, need for emergent surgery . He will have an ASA of 3. 6/2: He is status post upper GI bleed secondary to esophageal varices and gastric varices status post banding. He has been maintained on PPI drip and octreotide. He is getting ceftriaxone 1 g IV every 24 hours. He can have a liquid diet today. If his hemoglobin continues to be stable then he can be switched to Protonix 40 mg p.o. twice daily, lactulose 30 cc p.o. twice daily,, Xifaxan 550 mg p.o. twice a day and nadolol 10 mg p.o. twice daily. Awaiting chronic viral hepatitis work-up. He may also need screening for hepatocellular carcinoma with alpha-fetoprotein. His abdomen is becoming slightly more distended he may need a paracentesis prior to leaving the hospital. Charges/Coding Visit Charges Inpatient E&M: 98495 Subs Hosp L3
[2023-01-10 16:55] LABS: Bedside Glucose 125 mg/dL (74-106)
[2023-01-10 22:18] LABS: Bedside Glucose 150 mg/dL (74-106)
[2023-01-11] VITALS (26 sets, daily range): BP systolic 113–143; BP diastolic 51–83; PULSE 71–89; RESP 16–23; TEMP 36.9–37.3; O2SAT 93–98; BMI 30.9
[2023-01-11 03:51] LABS: Absolute Lymphocyte Count 0.87 X10^3/uL (0.83-4.51); Absolute Neutrophil Count 4.3 X10^3/uL (2.0-7.7); Basophil# 0.03 X10^3/uL; Basophil% 0.5 % (0-1); Eosinophil# 0.14 X10^3/uL; Eosinophils% 2.3 % (0-5); Hematocrit 19.7 % (40-54); Hemoglobin 6.5 g/dL (13.0-16.5); Lymphocyte # 0.87 X10^3/ul (0.83-4.51); Lymphocyte % 14.5 % (19-41); Mean Corpuscular Hgb 28.9 pg (27.0-32.0); Mean Corpuscular Volume 87.6 fL (80-94); Mean Platelet Vol. 11.3 fl (6.2-12.0); Monocyte# 0.65 X10^3/uL; Monocyte% 10.8 % (0-10); NRBC Flagged by Analyzer 0 % (0-5); Neutrophil # 4.31 X10^3/uL (2.7-7.7); Neutrophil % 71.6 % (47-70); Platelet Count 105 K/mm3 (150-450); RBC Distribution Width CV 15.3 % (11.6-14.6); RBC Distribution Width SD 48.6 fl (35.1-43.9); Red Blood Count 2.25 M/mm3 (4.6-6.2)
[2023-01-11 04:06] LABS: International Normalized Ratio 1.4; Prothrombin Time (Protime)PT. 17.1 SECONDS (11.7-14.9)
[2023-01-11 04:13] LABS: ALB/GLOB Ratio 0.6 RATIO (0.9-2.4); AST(SGOT) 36 U/L (15-37); Alanine Aminotransfer ALT/SGPT 31 U/L (16-61); Albumin, Serum 2.1 g/dL (3.2-5.0); Alkaline Phosphatase 97 U/L (45-117); Anion Gap 4 (5-15); BUN 19 mg/dL (7-18); BUN/Creat Ratio 22.1 RATIO (10-20); Calcium,Total 7.5 mg/dL (8.5-10.1); Chloride 109 mmol/L (98-107); Creatinine, Serum 0.86 mg/dL (0.70-1.30); EST Glomerular Filtration Rate 97 mL/min (>60); Est Glom Filt Rate - Afr Amer 117 mL/min (>60); Estimated Creatinine Clearance 113.27 ml/min; Globulin 3.4 g/dL (2.2-4.2); Glucose 147 mg/dL (74-106); Potassium 3.7 mmol/L (3.5-5.1); Protein, Total 5.5 g/dL (6.4-8.2); Sodium Level 140 mmol/L (136-145)
--- NOTE | 2023-01-11 06:04 | NURSING ---
protonix drip placed on hold due to limited IV access. Needing to transfuse PRBCs.
[2023-01-11] MEDS: Metoprolol Tartrate 5 MG/5 ML Vial IV ×3 (06:13→18:37)
--- NOTE | 2023-01-11 07:38 | PN.HOSP_ITS ---
Reason for Visit Reason for Visit: Diagnoses Type 2 diabetes mellitus without complications (01/08/23) Paroxysmal atrial fibrillation (01/08/23) Gastrointestinal hemorrhage, unspecified (01/08/23) Subjective Subjective Follow-up for GI bleed, variceal bleed due to decompensated alcoholic cirrhosis Objective Data Objective Data Vital Signs: Vital Signs Temp Pulse Resp BP Pulse Ox O2 Del Method O2 Flow Rate 99.1 F 71 16 127/67 H 95 Nasal Cannula 1 01/11/23 06:04 01/11/23 07:00 01/11/23 07:00 01/11/23 07:00 01/11/23 07:00 01/11/23 07:00 01/11/23 07:00 Oxygen Flow Rate (L/min) 1 Oxygen Delivery Method Nasal Cannula Weight: 248 lb 0.321 oz Body Mass Index (BMI) 30.9 Intake & Output: Intake and Output for Last 24 Hours 01/09/23 01/10/23 01/11/23 23:59 23:59 23:59 Intake Total 3641.42 / 3641.42 1315.04 / 1315.04 79.17 / 79.17 Output Total 1455 / 1455 1600 / 1600 250 / 250 Balance 2186.42 / 2186.42 -284.96 / -284.96 -170.83 / -170.83 Lab / Micro Data Result Diagrams: 01/11/23 09:45 01/11/23 03:45 Labs: Laboratory Results - last 24 hr 01/09/23 01:21: Crossmatch See Detail 01/10/23 11:02: POC Glucose 148 H 01/10/23 13:00: Hgb 7.0 L, Hct 21.7 L 01/10/23 16:35: POC Glucose 125 H 01/10/23 21:51: POC Glucose 150 H 01/11/23 03:45: WBC 6.0, RBC 2.25 L, Hgb 6.5 L, Hct 19.7 L, MCV 87.6, MCH 28.9, MCHC 33.0, RDW Std Deviation 48.6 H, RDW Coeff of Abimael 15.3 H, Plt Count 105 L, MPV 11.3, Immature Gran % (Auto) 0.300, Neut % (Auto) 71.6 H, Lymph % (Auto) 14.5 L, [place] % (Auto) 10.8 H, Eos % (Auto) 2.3, Baso % (Auto) 0.5, Absolute Neuts (auto) 4.3, Absolute Lymphs (auto) 0.87, Nucleated RBC % 0 01/11/23 03:45: Sodium 140, Potassium 3.7, Chloride 109 H, Carbon Dioxide 27.0, Anion Gap 4 L, BUN 19 H, Creatinine 0.86, Estim Creat Clear Calc 113.27, Est GFR (MDRD) Af Amer 117, Est GFR (MDRD) Non-Af 97, BUN/Creatinine Ratio 22.1 H, Glucose 147 H, Calcium 7.5 L, Total Bilirubin 0.50, AST 36, ALT 31, Alkaline Phosphatase 97, Total Protein 5.5 L, Albumin 2.1 L, Globulin 3.4, Albumin/Globulin Ratio 0.6 L 01/11/23 03:45: PT 17.1 H, INR 1.4 Physical Exam Narrative Seen and examined. No vomiting or hematemesis yesterday. Physical exam General: Alert, awake, oriented x3, Cooperative, No apparent distress HEENT: Atraumatic, PERRLA, EOMI, Normocephalic Oral: Oral mucosa moist. No Gingival or Mucosal Lesions/ Ulcerations Neck: Supple, No JVD, Negative Carotid Bruits Lungs:? Air entry diminished in bilateral lung bases.? No crepitation/rhonchi Cardiovascular: Sinus rhythm, Normal S1, Normal S2, No murmurs Abdomen: Bowel Sounds Present, Soft, nontender.? Abdomen mildly distended 6.? moderate ascites, shifting dullness present.? Spleen palpable. : No renal angle tenderness.? No suprapubic tenderness. Extremities: Mild 1+ pitting edema, Capillary Refill Less than 3 Seconds Skin: No rashes, No breakdown Musculoskeletal: No Tenderness to Palpation of Joints or Extremities Neurological: Cranial nerves II-XII grossly intact, DTR? 2+/4. No focal deficit Psych/mental status: Flat affect. Assessment & Plan Assessment/Plan (1) Paroxysmal atrial fibrillation: (2) Diabetes mellitus type II, controlled, with no complications: (3) Upper GI bleed: PLAN: Plan 53-year-old gentleman was admitted through ED for hematemesis, several times for about 15 minutes in the about the day of admission. As per documentation he threw up about 75 cc of blood in toilet. In August 2022 he had 1 episode of hematemesis and then dark blood for next few days. He had endoscopy 30 years ago for lactose intolerance investigation. He has history of IBS. He drinks alcohol about 2 shots of liquor at most every day but sometimes daily for 1 to 2 weeks and goes without drinking for 2 to 3 weeks. 1. Acute upper GI bleed most likely due to variceal bleed from chronic alcohol use disorder: Patient is being admitted in ICU. At time of admission NG tube was inserted with on low intermittent suction.Patient had 130 mm gastric drainage, altered blood. Upon stiffed 2 L charted. Continue NGT to low intermittent suction Given alcohol use would consider cirrhosis and variceal hemorrhage. He has INR of 1.4 and platelets of 213. No urine output charted. Mcclain catheter was ordered for critical care management. Currently patient is n.p.o. Discussed with nursing staff. Patient having right upper quadrant sonogram but on images liver looks nodular a small cirrhotic with mild to moderate ascites. Splenomegaly present. Management: Pantoprazole 80 mg IV stat and then 40 mg IV twice daily. Started on octreotide drip, ceftriaxone and IV esmolol drip. Patient's heart rate fluctuates between 130 to 150 , A-fib with RVR therefore requires IV esmolol drip. Discussed with the merchandising manager. 01/11: Hemoglobin only dropped from 7.0-6.5. Patient blood pressure is 127/67 and heart rate 71, regular.1 unit of PRBC given homeland security program specialist. Repeat H&H 7.1/22%. Heart rate 80/min BP 130/70. Discontinue Mcclain catheter and transfer to PCU. 2. Chronic alcohol use disorder with decompensated alcoholic cirrhosis with variceal bleed, ascites, splenomegaly; changes of portal hold for SBP less than 130 mmHg: On ultrasound images, liver is nodular cirrhotic, ascites and splenomegaly. AST mildly elevated ALT normal. Alkaline phosphatase elevated. Total bilirubin normal. Hypoalbuminemia at 2.3, A/G ratio 0.5 and INR elevated 1.4. 01/11: Repeat INR 1.3 improving. 2. Paroxysmal A Fib with RVR probably exacerbated by acute GI bleed as mentioned above: Patient was on Xarelto in the past but currently not on anticoagulant or antiplatelet agent. Started on IV esmolol drip as mentioned above 01/10: Patient is sinus rhythm heart rate and blood pressure control. Esmolol drip was discontinued about 2 days ago. 3. Diabetes mellitus type II: Accu-Cheks every 6 hourly and cover with Humalog sliding scale 01/11: Glucoses controlled 133. 4. Other comorbidities include IBS DVT: SCDs Charges/Coding Visit Charges Inpatient E&M: 53991 Subs Hosp L3
[2023-01-11] MEDS: Ceftriaxone 1 GM/50 ML BAG IV (08:14)
[2023-01-11 08:17] LABS: Bedside Glucose 133 mg/dL (74-106)
[2023-01-11 09:55] LABS: Hemoglobin 7.1 g/dL (13.0-16.5)
[2023-01-11 10:02] LABS: International Normalized Ratio 1.3; Prothrombin Time (Protime)PT. 16.5 SECONDS (11.7-14.9)
[2023-01-11 11:21] LABS: Bedside Glucose 160 mg/dL (74-106)
--- NOTE | 2023-01-11 13:07 | NURSING ---
report called to LACIE Maldonado in PCU at this time
[2023-01-11 16:53] LABS: Bedside Glucose 145 mg/dL (74-106)
[2023-01-11] MEDS: 0.9% Saline Lock 10 ML Syringe IV (18:37)
[2023-01-11 22:11] LABS: Bedside Glucose 178 mg/dL (74-106)
[2023-01-12] VITALS (16 sets, daily range): BP systolic 119–141; BP diastolic 45–81; PULSE 54–76; RESP 14–16; TEMP 36.2–37.2; O2SAT 92–97; BMI 30.7
[2023-01-12] MEDS: Metoprolol Tartrate 5 MG/5 ML Vial IV ×2 (00:50→06:19)
[2023-01-12] MEDS: 0.9% Saline Lock 10 ML Syringe IV ×2 (00:59→06:20)
[2023-01-12 06:14] LABS: Absolute Lymphocyte Count 0.85 X10^3/uL (0.83-4.51); Absolute Neutrophil Count 3.3 X10^3/uL (2.0-7.7); Basophil# 0.03 X10^3/uL; Basophil% 0.6 % (0-1); Eosinophil# 0.14 X10^3/uL; Eosinophils% 2.9 % (0-5); Hematocrit 22.3 % (40-54); Hemoglobin 7.4 g/dL (13.0-16.5); Lymphocyte # 0.85 X10^3/ul (0.83-4.51); Lymphocyte % 17.5 % (19-41); Mean Corp Hgb Conc 33.2 g/dL (32-36); Mean Corpuscular Volume 87.5 fL (80-94); Mean Platelet Vol. 11.3 fl (6.2-12.0); Monocyte# 0.53 X10^3/uL; Monocyte% 10.9 % (0-10); NRBC Flagged by Analyzer 0 % (0-5); Neutrophil # 3.29 X10^3/uL (2.7-7.7); Neutrophil % 67.9 % (47-70); POSITIVE COUNT YES; Platelet Count 96 K/mm3 (150-450); RBC Distribution Width CV 14.9 % (11.6-14.6); RBC Distribution Width SD 47.2 fl (35.1-43.9); Red Blood Count 2.55 M/mm3 (4.6-6.2); White Blood Count 4.9 K/mm3 (4.4-11.0)
[2023-01-12 06:20] LABS: International Normalized Ratio 1.3; Prothrombin Time (Protime)PT. 16.6 SECONDS (11.7-14.9)
[2023-01-12 06:48] LABS: ALB/GLOB Ratio 0.6 RATIO (0.9-2.4); AST(SGOT) 24 U/L (15-37); Alanine Aminotransfer ALT/SGPT 29 U/L (16-61); Albumin, Serum 2.1 g/dL (3.2-5.0); Alkaline Phosphatase 101 U/L (45-117); Anion Gap 3 (5-15); BUN 15 mg/dL (7-18); BUN/Creat Ratio 20.1 RATIO (10-20); Calcium,Total 7.7 mg/dL (8.5-10.1); Chloride 107 mmol/L (98-107); Creatinine, Serum 0.74 mg/dL (0.70-1.30); EST Glomerular Filtration Rate 115 mL/min (>60); Est Glom Filt Rate - Afr Amer 139 mL/min (>60); Estimated Creatinine Clearance 131.63 ml/min; Globulin 3.7 g/dL (2.2-4.2); Glucose 127 mg/dL (74-106); Potassium 3.7 mmol/L (3.5-5.1); Protein, Total 5.8 g/dL (6.4-8.2); Sodium Level 138 mmol/L (136-145)
[2023-01-12 07:01] LABS: Bedside Glucose 129 mg/dL (74-106)
[2023-01-12] MEDS: Ceftriaxone 1 GM/50 ML BAG IV (08:22)
--- NOTE | 2023-01-12 14:07 | PCM.PN.HOSP ---
Reason for Visit Reason for Visit: Diagnoses Type 2 diabetes mellitus without complications (01/08/23) Paroxysmal atrial fibrillation (01/08/23) Gastrointestinal hemorrhage, unspecified (01/08/23) Subjective Subjective Follow-up for variceal bleed due to decompensated alcoholic cirrhosis and ascites. Objective Data Objective Data Vital Signs: Vital Signs Temp Pulse Resp BP Pulse Ox O2 Del Method O2 Flow Rate 98.5 F 54 L 14 120/65 96 Room Air 1 01/12/23 11:00 01/12/23 11:48 01/12/23 11:00 01/12/23 11:00 01/12/23 11:00 01/12/23 11:00 01/11/23 10:00 Oxygen Flow Rate (L/min) 1 Oxygen Delivery Method Room Air Weight: 245 lb 13.047 oz Body Mass Index (BMI) 30.7 Intake & Output: Intake and Output for Last 24 Hours 01/10/23 01/11/23 01/12/23 23:59 23:59 23:59 Intake Total 1315.04 / 1315.04 1256.34 / 1256.34 404.54 / 404.54 Output Total 1600 / 1600 800 / 800 200 / 200 Balance -284.96 / -284.96 456.34 / 456.34 204.54 / 204.54 Lab / Micro Data Result Diagrams: 01/12/23 05:22 01/12/23 05:22 Labs: Laboratory Results - last 24 hr 01/11/23 16:36: POC Glucose 145 H 01/11/23 20:54: POC Glucose 178 H 01/12/23 05:22: WBC 4.9, RBC 2.55 L, Hgb 7.4 L, Hct 22.3 L, MCV 87.5, MCH 29.0, MCHC 33.2, RDW Std Deviation 47.2 H, RDW Coeff of Abimael 14.9 H, Plt Count 96 L, MPV 11.3, Immature Gran % (Auto) 0.200, Neut % (Auto) 67.9, Lymph % (Auto) 17.5 L, [place] % (Auto) 10.9 H, Eos % (Auto) 2.9, Baso % (Auto) 0.6, Absolute Neuts (auto) 3.3, Absolute Lymphs (auto) 0.85, Nucleated RBC % 0 01/12/23 05:22: Sodium 138, Potassium 3.7, Chloride 107, Carbon Dioxide 28.0, Anion Gap 3 L, BUN 15, Creatinine 0.74, Estim Creat Clear Calc 131.63, Est GFR (MDRD) Af Amer 139, Est GFR (MDRD) Non-Af 115, BUN/Creatinine Ratio 20.1 H, Glucose 127 H, Calcium 7.7 L, Total Bilirubin 0.80, AST 24, ALT 29, Alkaline Phosphatase 101, Total Protein 5.8 L, Albumin 2.1 L, Globulin 3.7, Albumin/Globulin Ratio 0.6 L 01/12/23 05:22: PT 16.6 H, INR 1.3 01/12/23 06:22: POC Glucose 129 H Physical Exam Narrative Seen and examined. No vomiting or hematemesis after admission. Patient completed IV Protonix and octreotide drip for 72 hours. Physical exam General: Alert, awake, oriented x3, Cooperative, No apparent distress HEENT: Atraumatic, PERRLA, EOMI, Normocephalic Oral: Oral mucosa moist. No Gingival or Mucosal Lesions/ Ulcerations Neck: Supple, No JVD, Negative Carotid Bruits Lungs:? Air entry diminished in bilateral lung bases.? No crepitation/rhonchi Cardiovascular: Sinus rhythm, Normal S1, Normal S2, No murmurs Abdomen: Bowel Sounds Present, Soft, nontender.? Abdominal distention. Moderate ascites, shifting dullness present.? Spleen palpable. : No renal angle tenderness.? No suprapubic tenderness. Extremities: Mild 1+ pitting edema, Capillary Refill Less than 3 Seconds Skin: No rashes, No breakdown Musculoskeletal: No Tenderness to Palpation of Joints or Extremities Neurological: Cranial nerves II-XII grossly intact, DTR? 2+/4. No focal deficit Psych/mental status: Flat affect. Assessment & Plan Assessment/Plan (1) Paroxysmal atrial fibrillation: (2) Diabetes mellitus type II, controlled, with no complications: (3) Upper GI bleed: PLAN: Plan 53-year-old gentleman was admitted through ED for hematemesis, several times for about 15 minutes in the about the day of admission. As per documentation he threw up about 75 cc of blood in toilet. In August 2022 he had 1 episode of hematemesis and then dark blood for next few days. He had endoscopy 30 years ago for lactose intolerance investigation. He has history of IBS. He drinks alcohol about 2 shots of liquor at most every day but sometimes daily for 1 to 2 weeks and goes without drinking for 2 to 3 weeks. 1. Acute upper GI bleed most likely due to variceal bleed from chronic alcohol use disorder: Patient is being admitted in ICU. At time of admission NG tube was inserted with on low intermittent suction.Patient had 130 mm gastric drainage, altered blood. Continue NGT to low intermittent suction Given alcohol use would consider cirrhosis and variceal hemorrhage. He has INR of 1.4 and platelets of 213. No urine output charted. Mcclain catheter was ordered for critical care management. Currently patient is n.p.o. Discussed with nursing staff. Patient having right upper quadrant sonogram but on images liver looks nodular a small cirrhotic with mild to moderate ascites. Splenomegaly present. Management: Pantoprazole 80 mg IV stat and then 40 mg IV twice daily. Started on octreotide drip, ceftriaxone and IV esmolol drip. Patient's heart rate fluctuates between 130 to 150 , A-fib with RVR therefore requires IV esmolol drip. Discussed with the panel builder. 01/11: Hemoglobin only dropped from 7.0-6.5. Patient blood pressure is 127/67 and heart rate 71, regular.1 unit of PRBC given mutual fund manager. Repeat H&H 7.1/22%. Heart rate 80/min BP 130/70. Discontinue Mcclain catheter and transfer to PCU. 01/12: Hemoglobin 7.4. Protonix 40 mg IV every 12 hourly, can change to oral from tomorrow AM. Discontinue octreotide drip. Patient never had paracentesis therefore diagnostic paracentesis ordered to rule out SBP and fluid analysis. Continue above treatment. INR improved to 1.3. Platelet count low 96,000. 2. Chronic alcohol use disorder with decompensated alcoholic cirrhosis with variceal bleed, ascites, splenomegaly; changes of portal hold for SBP less than 130 mmHg: On ultrasound images, liver is nodular cirrhotic, ascites and splenomegaly. AST mildly elevated ALT normal. Alkaline phosphatase elevated. Total bilirubin normal. Hypoalbuminemia at 2.3, A/G ratio 0.5 and INR elevated 1.4. 2. Paroxysmal A Fib with RVR probably exacerbated by acute GI bleed as mentioned above: Patient was on Xarelto in the past but currently not on anticoagulant or antiplatelet agent. Started on IV esmolol drip as mentioned above 01/10: Patient is sinus rhythm heart rate and blood pressure control. Esmolol drip was discontinued about 2 days ago. 01/12: Patient remained in sinus rhythm. Heart rate low 50s. Low-dose carvedilol started with holding parameter. 3. Diabetes mellitus type II: Accu-Cheks every 6 hourly and cover with Humalog sliding scale 01/11: Glucoses controlled 133. 6: A1c 6.6 suggestive of diabetes mellitus type 2. Glucose is controlled. 4. Other comorbidities include IBS DVT: SCDs Charges/Coding Visit Charges Inpatient E&M: 35288 Subs Hosp L2
[2023-01-12] MEDS: Carvedilol 3.125 MG TABLET PO (22:29)
[2023-01-12 22:59] LABS: Bedside Glucose 141 mg/dL (74-106)
[2023-01-13] VITALS (10 sets, daily range): BP systolic 109–133; BP diastolic 57–76; PULSE 66–75; RESP 14–18; TEMP 36.6–36.9; O2SAT 92–100; BMI 30.4
--- NOTE | 2023-01-13 | FLU_PTH ---
PATIENT: FIDE HODGSON Jr. LOC: [facility] U#:[id number] AGE/SX: 57/M ROOM: [facility] RE01/08/[address]: Dr. Jasmina Patel MD : 1965 BED: 1 DIS: 01/14/2023 SPEC #: [id number] RECD: 01/13/23 12:10 STATUS: MISSY REMel #: [id number] JUICE: 01/13/23 00:[address]: Jasmina Patel DEPT: CYTOLOGY RECD BY: Abdiel Bueno ENTERED: 01/13/23 12:10 SP TYPE: Fluid OTHR DR: MD Dr. Piotr Alvarado MD Dr. Ryan Burkholder, MD No Primary Care Phys Tissues: PARACENTESIS FLUID Procedures: Special Stain Group II Surgery Specimen Level IV Cytospin Fluid HEADER OPERATION: Paracentesis PRE-OP DIAGNOSIS: Ascites TISSUE SUBMITTED: Paracentesis fluid for cytology DIAGNOSIS CYTOLOGY Paracentesis fluid for cytology (cytospin and cell block): Negative for malignant cells. See comment. LESLIE:samson 01/14/2023 COMMENT Correlation with clinical findings and appropriate follow up are necessary. CYTOLOGY STUDY Slides are reviewed. CYTOLOGY GROSS Received is 65 ml of yellow cloudy fluid labeled with the patient's name and and designated per the requisition as paracentesis. Submitted for cytology preparation including cell block. / samson 01/13/2023 TC:5 CPT: 97308, 49159
[2023-01-13 07:27] LABS: Bedside Glucose 127 mg/dL (74-106)
[2023-01-13 07:29] LABS: Absolute Lymphocyte Count 0.83 X10^3/uL (0.83-4.51); Absolute Neutrophil Count 2.8 X10^3/uL (2.0-7.7); Basophil# 0.03 X10^3/uL; Basophil% 0.7 % (0-1); Eosinophil# 0.12 X10^3/uL; Eosinophils% 2.8 % (0-5); Hematocrit 22.6 % (40-54); Hemoglobin 7.3 g/dL (13.0-16.5); Lymphocyte # 0.83 X10^3/ul (0.83-4.51); Lymphocyte % 19.5 % (19-41); Mean Corp Hgb Conc 32.3 g/dL (32-36); Mean Corpuscular Hgb 28.6 pg (27.0-32.0); Mean Corpuscular Volume 88.6 fL (80-94); Mean Platelet Vol. 11.1 fl (6.2-12.0); Monocyte# 0.49 X10^3/uL; Monocyte% 11.5 % (0-10); NRBC Flagged by Analyzer 0 % (0-5); Neutrophil # 2.78 X10^3/uL (2.7-7.7); Neutrophil % 65.5 % (47-70); POSITIVE COUNT YES; Platelet Count 92 K/mm3 (150-450); RBC Distribution Width SD 46.7 fl (35.1-43.9); Red Blood Count 2.55 M/mm3 (4.6-6.2); White Blood Count 4.3 K/mm3 (4.4-11.0)
--- NOTE | 2023-01-13 08:09 | US_ITS ---
PROCEDURE: Ultrasound guided paracentesis. DATE OF EXAMINATION: January 13, 2023. INDICATION: Male, 57 years old. Ascites. PHYSICIAN: Del Avalos M.D. TECHNIQUE: The risks, benefits, and alternatives to the procedure were explained to the patient. The specific risks of bleeding, infection, and damage to bowel were detailed and accepted. Witnessed informed consent was obtained. The abdomen was ultrasonographically surveyed. An appropriate pocket of fluid was identified at the right lower quadrant. The skin were cleaned and prepped in the usual sterile fashion. Using ultrasound guidance, the peritoneal cavity was accessed with a 5-Yemeni paracentesis needle/catheter system. The trocar was removed. A total of 8050 ml of vik-colored fluid were removed from the peritoneal cavity. A 100 mL sample was sent to the laboratory for analysis. The catheter was removed and a sterile dressing was applied. The procedure was well tolerated. US/Paracentesis with US IMPRESSION: Ultrasound guided paracentesis. Electronically Signed: Del Avalos MD at 10:00 EDT ,
[2023-01-13] MEDS: Lidocaine 2% (20 ml mdv) 20 ML Vial INFILT (08:24)
[2023-01-13 08:33] LABS: ALB/GLOB Ratio 0.6 RATIO (0.9-2.4); AST(SGOT) 21 U/L (15-37); Alanine Aminotransfer ALT/SGPT 23 U/L (16-61); Alkaline Phosphatase 88 U/L (45-117); Anion Gap 4 (5-15); BUN 14 mg/dL (7-18); BUN/Creat Ratio 22.2 RATIO (10-20); Calcium,Total 7.8 mg/dL (8.5-10.1); Chloride 106 mmol/L (98-107); Creatinine, Serum 0.63 mg/dL (0.70-1.30); EST Glomerular Filtration Rate 139 mL/min (>60); Est Glom Filt Rate - Afr Amer 168 mL/min (>60); Estimated Creatinine Clearance 154.62 ml/min; Globulin 3.6 g/dL (2.2-4.2); Glucose 124 mg/dL (74-106); Potassium 3.6 mmol/L (3.5-5.1); Protein, Total 5.6 g/dL (6.4-8.2); Sodium Level 137 mmol/L (136-145)
[2023-01-13 09:05] LABS: Cytology, Body Fluid / CSF SEE PATHOLOGY REPORT
[2023-01-13] MEDS: 0.9% Saline Lock 10 ML Syringe IV ×2 (09:09→14:01)
[2023-01-13] MEDS: Ceftriaxone 1 GM/50 ML BAG IV (09:10)
[2023-01-13 09:41] LABS: Glucose, Body Fluid 133 mg/dL (40-70); LDH,Body Fluid 48 Units/l (Not Establ.)
[2023-01-13 10:08] LABS: Body Fluid Mononuclear WBC # 0.182 10^3/uL; Body Fluid Mononuclear WBC % 87.1 %; Body Fluid Polynuclear WBC # 0.027 10^3/uL; Body Fluid Polynuclear WBC % 12.9 %; Body Fluid Total Cells Counted 0.238 10^3/ul; White Blood Count/Body Fluid 0.209 10^3/uL
[2023-01-13 10:09] LABS: Specific Gravity, Body Fluid 1.012
[2023-01-13 10:10] LABS: Auto B Fluid Analyzer BKGD Ct COUNTS W/IN LIMITS (W/IN LIMITS)
[2023-01-13 10:11] LABS: Appearance/Body Fluid CLEAR; Color/Body Fluid LT YEL; Source- Body Fluid OTHER
[2023-01-13] MEDS: Carvedilol 3.125 MG TABLET PO ×2 (10:30→20:53)
[2023-01-13 11:43] LABS: Lymphocytes 65 %; Monocytes 16 %; Neutrophil (Segs) 19 %
[2023-01-13 11:45] LABS: Body Fluid QC Type(s) BF1Q; Red Cell Count/Body Fluid 203 /mm3
[2023-01-13 11:57] LABS: Bedside Glucose 179 mg/dL (74-106)
[2023-01-13] MEDS: Albumin Human 25% (100 mL) 25 GM/100 ML BAG IV (14:01)
[2023-01-13 16:30] LABS: Bedside Glucose 156 mg/dL (74-106)
--- NOTE | 2023-01-13 17:41 | PN_ITS ---
Subjective Subjective Patient seen and examined. He had no complaints this morning. He had paracentesis with removal of 8 L of oxygen. Review of systems otherwise negative. He has remained hemodynamically stable. Objective Data Objective Data Vital Signs: Vital Signs Temp Pulse Resp BP Pulse Ox O2 Del Method O2 Flow Rate 98.2 F 68 18 122/76 H 100 Room Air 1 01/13/23 15:50 01/13/23 15:50 01/13/23 15:50 01/13/23 15:50 01/13/23 15:50 01/13/23 15:50 01/11/23 10:00 Oxygen Flow Rate (L/min) 1 Oxygen Delivery Method [3] Room Air Oxygen Delivery Method [2] Room Air Oxygen Delivery Method [1 ( Room Air Initial Baseline)] Oxygen Delivery Method Room Air Weight: 243 lb 6.245 oz Body Mass Index (BMI) 30.4 Intake & Output: Intake and Output for Last 24 Hours 01/11/23 01/12/23 01/13/23 23:59 23:59 23:59 Intake Total 1256.34 / 1256.34 1274.04 / 1274.04 680 / 680 Output Total 800 / 800 200 / 200 8050 / 8050 Balance 456.34 / 456.34 1074.04 / 1074.04 -7370 / -7370 Lab / Micro Data Result Diagrams: 01/13/23 06:50 01/13/23 06:50 Labs: Laboratory Results - last 24 hr 01/12/23 22:31: POC Glucose 141 H 01/13/23 06:45: POC Glucose 127 H 01/13/23 06:50: WBC 4.3 L, RBC 2.55 L, Hgb 7.3 L, Hct 22.6 L, MCV 88.6, MCH 28.6, MCHC 32.3, RDW Std Deviation 46.7 H, RDW Coeff of Abimael 15.0 H, Plt Count 92 L, MPV 11.1, Immature Gran % (Auto) 0.000, Neut % (Auto) 65.5, Lymph % (Auto) 19.5, [place] % (Auto) 11.5 H, Eos % (Auto) 2.8, Baso % (Auto) 0.7, Absolute Neuts (auto) 2.8, Absolute Lymphs (auto) 0.83, Nucleated RBC % 0 01/13/23 06:50: Sodium 137, Potassium 3.6, Chloride 106, Carbon Dioxide 27.0, Anion Gap 4 L, BUN 14, Creatinine 0.63 L, Estim Creat Clear Calc 154.62, Est GFR (MDRD) Af Amer 168, Est GFR (MDRD) Non-Af 139, BUN/Creatinine Ratio 22.2 H, Glucose 124 H, Calcium 7.8 L, Total Bilirubin 0.60, AST 21, ALT 23, Alkaline Phosphatase 88, Total Protein 5.6 L, Albumin 2.0 L, Globulin 3.6, Albumin/Globulin Ratio 0.6 L 01/13/23 08:15: Fluid Glucose 133 H, Fluid LDH 48 01/13/23 08:15: Fluid Source OTHER, Fluid Color LT YEL, Fluid Appearance CLEAR, Fluid WBC 0.209, Fluid RBC 203, Fluid Tot Cell Count 0.238, Fld Polynuclear WBCs # 0.027, Fld Polynuclear WBCs % 12.9, Fluid Mononuclear WBCs 0.182, Fld Mononuclear WBCs % 87.1, Fluid Neutrophils 19, Fluid Lymphocytes 65, Fluid Monocytes 16, Fl Pathologist Comment May follow, Fluid Comment 2 SEE COMMENT 01/13/23 08:15: Fluid Specific Grav 1.012 01/13/23 11:39: POC Glucose 179 H 01/13/23 15:53: POC Glucose 156 H Micro: Microbiology 01/13/23 08:15 Fluid - Ascites Gram Stain - Final Radiography Diagnostic Testing: Radiology Impression Paracentesis Ultrasound 01/13/23 08:09 IMPRESSION: Ultrasound guided paracentesis. Electronically Signed: Del Avalos MD at 10:00 EDT , Physical Exam Const alert, oriented x3 and no apparent distress General Appearance: cooperative HEENT normocephalic, head/scalp atraumatic and moist oral mucous membranes Eyes PERRL and EOMs intact bilaterally Neck no lymphadenopathy, supple and no JVD Lymph Lymphatic: no lymphadenopathy noted and no lymphedema noted Resp normal respiratory effort, normal air movement and clear to auscultation bilaterally Cardio regular rate, regular rhythm, S1 normal heart sound, S2 normal heart sound and no murmurs GI GI Narrative: Soft, mildly distended. No organomegaly. No tenderness. Extremity normal capillary refill, no clubbing, cyanosis or edema and no calf tenderness General Extremity: no tenderness to palpation of joints or extremities Skin General Skin Exam: no breakdown Neuro CN's II-XII intact bilaterally and no focal motor deficits Coordination / Balance: [id number] test normal Motor Exam: strength 5/5 throughout Psych thought process normal, cooperative and affect normal Appearance: appropriate Assessment & Plan Assessment/Plan (1) Upper GI bleed: PLAN: Plan #Acute upper GI bleed * Thought to be due to variceal bleed from chronic alcohol use disorder. Was initially admitted to ICU. * Was placed on IV pantoprazole drip. He also had octreotide drip. He was also initially on esmolol drip. * He had EGD which showed grade 3 esophageal varices which were incompletely eradicated and banded. * On IV ceftriaxone. * #Chronic alcohol use disorder with decompensated alcoholic liver cirrhosis * USG showed nodular cirrhotic liver with ascites and splenomegaly. We will keep monitoring. * . GI, to be on Protonix and lactulose as well as Xifaxan #Paroxysmal A-fib: * Was initially in RVR on admission which was thought to be due to GI bleed. * Currently normal sinus rhythm. Not on any anticoagulants. On carvedilol. * #Type 2 diabetes mellitus: A1c was 6.6. Controlled by diet. Insulin sliding scale. Accu-Cheks ACHS. DVT prophylaxis; SCDs Charges/Coding Visit Charges Inpatient E&M: 41155 Subs Hosp L2
--- NOTE | 2023-01-13 19:52 | EX.PCM.PN.GI ---
Subjective Subjective Patient has been tolerating a diet and wants it advance to a regular diet. Objective Data Objective Data Vital Signs: Vital Signs Temp Pulse Resp BP Pulse Ox O2 Del Method O2 Flow Rate 98.2 F 68 18 122/76 H 100 Room Air 1 01/13/23 15:50 01/13/23 15:50 01/13/23 15:50 01/13/23 15:50 01/13/23 15:50 01/13/23 15:50 01/11/23 10:00 Oxygen Flow Rate (L/min) 1 Oxygen Delivery Method [3] Room Air Oxygen Delivery Method [2] Room Air Oxygen Delivery Method [1 ( Room Air Initial Baseline)] Oxygen Delivery Method Room Air Weight: 243 lb 6.245 oz Body Mass Index (BMI) 30.4 Intake & Output: Intake and Output for Last 24 Hours 01/11/23 01/12/23 01/13/23 23:59 23:59 23:59 Intake Total 1256.34 / 1256.34 1274.04 / 1274.04 1100 / 1100 Output Total 800 / 800 200 / 200 8050 / 8050 Balance 456.34 / 456.34 1074.04 / 1074.04 -6950 / -6950 Lab / Micro Data Result Diagrams: 01/13/23 06:50 01/13/23 06:50 Labs: Laboratory Results - last 24 hr 01/12/23 22:31: POC Glucose 141 H 01/13/23 06:45: POC Glucose 127 H 01/13/23 06:50: WBC 4.3 L, RBC 2.55 L, Hgb 7.3 L, Hct 22.6 L, MCV 88.6, MCH 28.6, MCHC 32.3, RDW Std Deviation 46.7 H, RDW Coeff of Abimael 15.0 H, Plt Count 92 L, MPV 11.1, Immature Gran % (Auto) 0.000, Neut % (Auto) 65.5, Lymph % (Auto) 19.5, [place] % (Auto) 11.5 H, Eos % (Auto) 2.8, Baso % (Auto) 0.7, Absolute Neuts (auto) 2.8, Absolute Lymphs (auto) 0.83, Nucleated RBC % 0 01/13/23 06:50: Sodium 137, Potassium 3.6, Chloride 106, Carbon Dioxide 27.0, Anion Gap 4 L, BUN 14, Creatinine 0.63 L, Estim Creat Clear Calc 154.62, Est GFR (MDRD) Af Amer 168, Est GFR (MDRD) Non-Af 139, BUN/Creatinine Ratio 22.2 H, Glucose 124 H, Calcium 7.8 L, Total Bilirubin 0.60, AST 21, ALT 23, Alkaline Phosphatase 88, Total Protein 5.6 L, Albumin 2.0 L, Globulin 3.6, Albumin/Globulin Ratio 0.6 L 01/13/23 08:15: Fluid Glucose 133 H, Fluid LDH 48 01/13/23 08:15: Fluid Source OTHER, Fluid Color LT YEL, Fluid Appearance CLEAR, Fluid WBC 0.209, Fluid RBC 203, Fluid Tot Cell Count 0.238, Fld Polynuclear WBCs # 0.027, Fld Polynuclear WBCs % 12.9, Fluid Mononuclear WBCs 0.182, Fld Mononuclear WBCs % 87.1, Fluid Neutrophils 19, Fluid Lymphocytes 65, Fluid Monocytes 16, Fl Pathologist Comment May follow, Fluid Comment 2 SEE COMMENT 01/13/23 08:15: Fluid Specific Grav 1.012 01/13/23 11:39: POC Glucose 179 H 01/13/23 15:53: POC Glucose 156 H Micro: Microbiology 01/13/23 08:15 Fluid - Ascites Gram Stain - Final Radiography Diagnostic Testing: Radiology Impression Paracentesis Ultrasound 01/13/23 08:09 IMPRESSION: Ultrasound guided paracentesis. Electronically Signed: Del Avalos MD at 10:00 EDT , Physical Exam Const alert, oriented x3 and no apparent distress General Appearance: cooperative HEENT normocephalic, head/scalp atraumatic and moist oral mucous membranes Eyes PERRL and EOMs intact bilaterally Neck no lymphadenopathy, supple and no JVD Lymph Lymphatic: no lymphadenopathy noted and no lymphedema noted Resp normal respiratory effort, normal air movement and clear to auscultation bilaterally Cardio regular rate, regular rhythm, S1 normal heart sound, S2 normal heart sound and no murmurs GI GI Narrative: Soft, mildly distended. No organomegaly. No tenderness. Extremity normal capillary refill, no clubbing, cyanosis or edema and no calf tenderness General Extremity: no tenderness to palpation of joints or extremities Skin General Skin Exam: no breakdown Neuro CN's II-XII intact bilaterally and no focal motor deficits Coordination / Balance: [id number] test normal Motor Exam: strength 5/5 throughout Psych thought process normal, cooperative and affect normal Appearance: appropriate Assessment & Plan Assessment/Plan (1) Paroxysmal atrial fibrillation: (2) Diabetes mellitus type II, controlled, with no complications: (3) Upper GI bleed: PLAN: Plan For upper GI bleed 57-year-old gentleman with hematemesis and possible cirrhosis complicated by thrombocytopenia, coagulopathy, A-fib with RVR. He will need to undergo an emergent endoscopy to evaluate his upper GI tract. Recommend PPI drip, octreotide drip, ceftriaxone 1 g IV every 24 hours. Recommend ultrasound of the right upper quadrant. Checking for chronic hepatitis B and chronic hepatitis C. Keep MAP close to 60 as possible. He was explained alternatives, risk, benefits include not withstanding bleeding, infection, sepsis, perforation, need for emergent surgery . He will have an ASA of 3. 6: He is status post upper GI bleed secondary to esophageal varices and gastric varices status post banding. He has been maintained on PPI drip and octreotide. He is getting ceftriaxone 1 g IV every 24 hours. He can have a liquid diet today. If his hemoglobin continues to be stable then he can be switched to Protonix 40 mg p.o. twice daily, lactulose 30 cc p.o. twice daily,, Xifaxan 550 mg p.o. twice a day and nadolol 10 mg p.o. twice daily. Awaiting chronic viral hepatitis work-up. He may also need screening for hepatocellular carcinoma with alpha-fetoprotein. His abdomen is becoming slightly more distended he may need a paracentesis prior to leaving the hospital. 01/13: His hemoglobin has been holding steady. He has not shown any signs of GI bleed. If he goes home he will need to be on Protonix 40 mg p.o. twice daily, lactulose 30 mg p.o. twice daily and nadolol 10 mg p.o. twice daily. No alcohol. With his age and lack of comorbidities, but it is except for diabetes and paroxysmal atrial fibrillation he may be transplant candidate in the future if he continues sobriety for 6 months. Charges/Coding Visit Charges Inpatient E&M: 48768 Subs Hosp L3
[2023-01-13 22:41] LABS: Bedside Glucose 119 mg/dL (74-106)
[2023-01-14 03:15] VITALS: BP 120/66; PULSE 67; RESP 17; TEMP 36.7; O2SAT 96
[2023-01-14 03:45] VITALS: BMI 28.4
[2023-01-14 04:00] VITALS: BP 120/66; PULSE 67; RESP 17; TEMP 36.7; O2SAT 96
[2023-01-14 06:46] LABS: Bedside Glucose 128 mg/dL (74-106)
[2023-01-14 06:53] LABS: Absolute Lymphocyte Count 0.64 X10^3/uL (0.83-4.51); Absolute Neutrophil Count 2.7 X10^3/uL (2.0-7.7); Basophil# 0.02 X10^3/uL; Basophil% 0.5 % (0-1); Eosinophil# 0.09 X10^3/uL; Eosinophils% 2.3 % (0-5); Hemoglobin 7.5 g/dL (13.0-16.5); Lymphocyte # 0.64 X10^3/ul (0.83-4.51); Lymphocyte % 16.5 % (19-41); Mean Corp Hgb Conc 32.6 g/dL (32-36); Mean Corpuscular Hgb 28.8 pg (27.0-32.0); Mean Corpuscular Volume 88.5 fL (80-94); Mean Platelet Vol. 11.5 fl (6.2-12.0); Monocyte# 0.46 X10^3/uL; Monocyte% 11.9 % (0-10); NRBC Flagged by Analyzer 0 % (0-5); Neutrophil # 2.65 X10^3/uL (2.7-7.7); Neutrophil % 68.5 % (47-70); POSITIVE COUNT YES; Platelet Count 93 K/mm3 (150-450); RBC Distribution Width CV 15.2 % (11.6-14.6); RBC Distribution Width SD 46.5 fl (35.1-43.9); White Blood Count 3.9 K/mm3 (4.4-11.0)
[2023-01-14 07:31] LABS: ALB/GLOB Ratio 0.6 RATIO (0.9-2.4); AST(SGOT) 18 U/L (15-37); Alanine Aminotransfer ALT/SGPT 22 U/L (16-61); Albumin, Serum 2.2 g/dL (3.2-5.0); Alkaline Phosphatase 98 U/L (45-117); Anion Gap 5 (5-15); BUN 12 mg/dL (7-18); BUN/Creat Ratio 18.4 RATIO (10-20); Calcium,Total 7.9 mg/dL (8.5-10.1); Chloride 105 mmol/L (98-107); Creatinine, Serum 0.65 mg/dL (0.70-1.30); EST Glomerular Filtration Rate 134 mL/min (>60); Est Glom Filt Rate - Afr Amer 162 mL/min (>60); Estimated Creatinine Clearance 149.86 ml/min; Globulin 3.6 g/dL (2.2-4.2); Glucose 130 mg/dL (74-106); Potassium 3.5 mmol/L (3.5-5.1); Protein, Total 5.8 g/dL (6.4-8.2); Sodium Level 136 mmol/L (136-145)
[2023-01-14 08:40] VITALS: BP 111/65; PULSE 79; RESP 18; TEMP 37; O2SAT 100
[2023-01-14] MEDS: 0.9% Saline Lock 10 ML Syringe IV (08:41)
[2023-01-14] MEDS: Carvedilol 3.125 MG TABLET PO (08:44)
[2023-01-14 08:45] VITALS: O2SAT 100
[2023-01-14] MEDS: Ceftriaxone 1 GM/50 ML BAG IV (10:08)
--- NOTE | 2023-01-14 11:18 | CASEMGMT ---
Sw presented to patient room, met with patient and his significant other. Patient stated he would like to complete Advanced Directive paperwork. Sw assisted patient in completing POA and Living will documentation. Sw provided pt with original document and an extra copy. Sw put copy of documents in chart. Sw also made copies of patient's social security income information for patient to provide to Billing/ Finance department. Sw assessed for any other needs, concerns at this time, patient and so deny at this time. Kelli Willingham, WATER TRUCK DRIVER, BIOSECURITY OFFICER
[2023-01-14 12:09] LABS: Amylase Body Fluid 24 U/L (.)
[2023-01-14 12:12] LABS: Bedside Glucose 157 mg/dL (74-106)
--- NOTE | 2023-01-14 12:17 | CASEMGMT ---
RN CM in to discuss discharge needs. Patient denies needs at discharge. Patient states he does not have a PCP, list provided. Patient voiced understanding and will schedule appt with PCP of choice. Patient had no further questions or concerns at this time.
--- NOTE | 2023-01-14 13:11 | DS.PCM_ITS ---
Providers Date of Admission: 01/08/23 Date of Discharge: 01/14/23 Primary Care Physician: Sudha Primary Care Phys Consultations 01/08/23 23:01 Consult: Gastroenterology Routine Consulting Provider: Stefany Gastroenterology Reason for Consult: evaluation upper gi bleed EMERGENT Consult: No MD Notified: Yes Date Notified: 01/09/23 Time Notified: 07:56 Method of Notification: Text Reason For Visit: UPPER GI BLEED Diagnosis Discharge Diagnosis (1) Paroxysmal atrial fibrillation: Status: Chronic Code(s): I48.0 - Paroxysmal atrial fibrillation (2) Diabetes mellitus type II, controlled, with no complications: Status: Chronic Code(s): E11.9 - Type 2 diabetes mellitus without complications (3) Upper GI bleed: Status: Acute Code(s): K92.2 - Gastrointestinal hemorrhage, unspecified Plan #Acute upper GI bleed * Thought to be due to variceal bleed from chronic alcohol use disorder. Was initially admitted to ICU. * Was placed on IV pantoprazole drip. He also had octreotide drip. He was also initially on esmolol drip. * He had EGD which showed grade 3 esophageal varices which were incompletely eradicated and banded. * On IV ceftriaxone. * #Chronic alcohol use disorder with decompensated alcoholic liver cirrhosis * USG showed nodular cirrhotic liver with ascites and splenomegaly. We will keep monitoring. * . GI, to be on Protonix and lactulose as well as Xifaxan #Paroxysmal A-fib: * Was initially in RVR on admission which was thought to be due to GI bleed. * Currently normal sinus rhythm. Not on any anticoagulants. On carvedilol. * #Type 2 diabetes mellitus: A1c was 6.6. Controlled by diet. Insulin sliding scale. Accu-Cheks ACHS. DVT prophylaxis; SCDs Medications at Discharge Home Medications lactulose 20 gram/30 mL oral solution 20 g (30 mL) PO TID #3,000 mL 01/14/23 nadolol 20 mg tablet 10 mg PO DAILY #30 tabs 01/14/23 pantoprazole 40 mg tablet,delayed release 40 mg PO DAILY #60 tabs 01/14/23 Hospital Course Operations None Procedures EGD Summary of Care Provided Minutes Spent on Discharge: 48 Hospital Course: Patient is a 57-year-old male with a past medical history as outlined including chronic alcohol use with no prior known history of cirrhosis who was admitted with a complaint of throwing up blood. This had occurred several times. He therefore came into the ED. He denied any dark bowel movements. Said he had on ly had EGD several years ago for lactose intolerance. He was admitted and managed for acute upper GI bleed likely due to variceal bleed from chronic alcohol use disorder. He was initially admitted to the ICU and NG tube was inserted with drainage of altered blood. Gastroenterology was consulted and he was started on IV PPI as well as octreotide drip, esmolol drip and ceftriaxone. Patient also went into A-fib with RVR requiring esmolol drip. Patient had been on Xarelto in the past but was not currently anticoagulated. He had EGD which showed large amount of fluid in the stomach and red blood in the entire stomach as well as type I isolated gastric varices which were incompletely eradicated and banded. He was continued on his IV PPI. He also had paracentesis with removal of 8 L of fluid and received albumin afterwards. Patient felt much better and he did well. He remains to be low was discharged on 01/14/2023 on p.o. Protonix, lactulose and nadolol. He is to follow-up with his PCP and gastroenterology on outpatient basis and he was counseled strongly to quit drinking. Patient was seen and examined prior to discharge. He had no complaints and had an uneventful night. Review of systems otherwise negative. Labs and vitals reviewed. Medication reviewed and reconciled. Physical Exam Const alert, oriented x3 and no apparent distress General Appearance: cooperative and comfortable HEENT normocephalic, head/scalp atraumatic, hearing grossly normal bilaterally and moist oral mucous membranes Mouth: oral and palatal mucosa normal Eyes PERRL and EOMs intact bilaterally Neck no lymphadenopathy, supple and no JVD Lymph Lymphatic: no lymphadenopathy noted and no lymphedema noted Resp normal respiratory effort, normal air movement and clear to auscultation bilaterally Cardio regular rate, regular rhythm, S1 normal heart sound, S2 normal heart sound and no murmurs GI GI Narrative: Soft, mildly distended. No organomegaly. No tenderness. Extremity normal to inspection, full ROM, normal capillary refill, no clubbing, cyanosis or edema and no calf tenderness General Extremity: no tenderness to palpation of joints or extremities Skin General Skin Exam: no breakdown Neuro oriented x3, CN's II-XII intact bilaterally, moves all extremities and no focal motor deficits Coordination / Balance: qympuu-[id number] test normal Motor Exam: strength 5/5 throughout Psych thought process normal, cooperative and affect normal Appearance: appropriate Weight / BMI Weight Weight: 227 lb 4.745 oz Body Mass Index (BMI) 28.4 ABG / Lab / Microbiology Data Result Diagrams: 01/14/23 06:25 01/14/23 06:25 Laboratory: Laboratory Results - last 24 hr 01/13/23 08:15: Fluid Amylase 24 01/13/23 15:53: POC Glucose 156 H 01/13/23 22:23: POC Glucose 119 H 01/14/23 06:25: WBC 3.9 L, RBC 2.60 L, Hgb 7.5 L, Hct 23.0 L, MCV 88.5, MCH 28.8, MCHC 32.6, RDW Std Deviation 46.5 H, RDW Coeff of Abimael 15.2 H, Plt Count 93 L, MPV 11.5, Immature Gran % (Auto) 0.300, Neut % (Auto) 68.5, Lymph % (Auto) 16.5 L, Morrison % (Auto) 11.9 H, Eos % (Auto) 2.3, Baso % (Auto) 0.5, Absolute Neuts (auto) 2.7, Absolute Lymphs (auto) 0.64 L, Nucleated RBC % 0 01/14/23 06:25: Sodium 136, Potassium 3.5, Chloride 105, Carbon Dioxide 26.0, Anion Gap 5, BUN 12, Creatinine 0.65 L, Estim Creat Clear Calc 149.86, Est GFR (MDRD) Af Amer 162, Est GFR (MDRD) Non-Af 134, BUN/Creatinine Ratio 18.4, Glucose 130 H, Calcium 7.9 L, Total Bilirubin 0.70, AST 18, ALT 22, Alkaline Phosphatase 98, Total Protein 5.8 L, Albumin 2.2 L, Globulin 3.6, Albumin/Globulin Ratio 0.6 L 01/14/23 06:29: POC Glucose 128 H 01/14/23 11:54: POC Glucose 157 H Microbiology: Microbiology 01/13/23 08:15 Fluid - Ascites Gram Stain - Final D/C Instructions Discharge Diet: Low fat / Low cholesterol Discharge Activity: Return to Normal Activity Weight Bearing Status: Weight bearing as tolerated Call your doctor if you observe: Fever of 101 or Higher, Shortness of breath, Dizziness, Swelling in the ankles, Chest pain and Increased palpitations (irregular heartbeat) Meaningful Use Info Meaningful Use Diagnoses (Choose all that apply): None applicable Discharge Plan Admission Admit Date/Time: 01/08/23 23:20 Primary Reason for Your Visit: GI bleed, esophageal varices Attending Provider: Jasmina Patel Primary Care Provider: Care Physician,No Primary Consulting Providers: Darius Mosher ; Piotr Page ; Maulik Haque Instructions Patient Instructions: NATALIA RN Paracentesis Dc Discharge Orders/Prescriptions Prescriptions: New lactulose 20 gram/30 mL solution 20 g PO TID Qty: 3000 2RF pantoprazole 40 mg tablet,delayed release (DR/EC) 40 mg PO DAILY Qty: 60 2RF nadolol 20 mg tablet 10 mg PO DAILY Qty: 30 1RF Referrals / Follow Up: Carlos Escobar MD [Med Staff - Active Staff] - Within 2 Weeks Eliezer Loomis DO [Med Staff - Active Staff] - Within 2 Weeks Care Physician,No Primary [Primary Care Provider] - Within 2 Weeks Disposition Disposition (needs filled in before D/C Order can be placed): Home, Self Care Charges/Coding Visit Charges Inpatient E&M: 86953 Disch Hosp >30min
--- NOTE | 2023-01-14 13:43 | DCINST_ITS ---
Discharge Instructions Diet Discharge Diet: Low fat / Low cholesterol Activity Discharge Activity: Return to Normal Activity Weight Bearing Status: Weight bearing as tolerated Dressing / Incision Call your doctor if you observe: Fever of 101 or Higher, Shortness of breath, Dizziness, Swelling in the ankles and Chest pain Follow Up Care Test Results: Test results from this visit will be discussed in further detail at your follow- up appointment, if applicable. Discharge Plan Admission Admit Date/Time: 01/08/23 23:20 Primary Reason for Your Visit: GI bleed, esophageal varices Attending Provider: Jasmina Patel Primary Care Provider: Care Physician,No Primary Consulting Providers: Darius Mosher ; Piotr Page ; Maulik Haque Instructions Patient Instructions: NATALIA RN Paracentesis Dc Discharge Orders/Prescriptions Prescriptions: New lactulose 20 gram/30 mL solution 20 g PO TID Qty: 3000 2RF pantoprazole 40 mg tablet,delayed release (DR/EC) 40 mg PO DAILY Qty: 60 2RF nadolol 20 mg tablet 10 mg PO DAILY Qty: 30 1RF Xifaxan 550 mg tablet 550 mg PO BID Qty: 60 1RF Referrals / Follow Up: Carlos Escobar MD [Med Staff - Active Staff] - Within 2 Weeks Eliezer Loomis DO [Med Staff - Active Staff] - Within 2 Weeks Care Physician,No Primary [Primary Care Provider] - Within 2 Weeks Disposition Disposition (needs filled in before D/C Order can be placed): Home, Self Care
--- NOTE | 2023-01-14 13:47 | DS.PCM_ITS ---
Providers Date of Admission: 01/08/23 Primary Care Physician: Sudha Primary Care Phys Consultations 01/08/23 23:01 Consult: Gastroenterology Routine Consulting Provider: Stefany Gastroenterology Reason for Consult: evaluation upper gi bleed EMERGENT Consult: No MD Notified: Yes Date Notified: 01/09/23 Time Notified: 07:56 Method of Notification: Text Reason For Visit: UPPER GI BLEED Diagnosis Discharge Diagnosis (1) Paroxysmal atrial fibrillation: Status: Chronic Code(s): I48.0 - Paroxysmal atrial fibrillation (2) Diabetes mellitus type II, controlled, with no complications: Status: Chronic Code(s): E11.9 - Type 2 diabetes mellitus without complications (3) Upper GI bleed: Status: Acute Code(s): K92.2 - Gastrointestinal hemorrhage, unspecified Plan #Acute upper GI bleed * Thought to be due to variceal bleed from chronic alcohol use disorder. Was initially admitted to ICU. * Was placed on IV pantoprazole drip. He also had octreotide drip. He was also initially on esmolol drip. * He had EGD which showed grade 3 esophageal varices which were incompletely eradicated and banded. * On IV ceftriaxone. * #Chronic alcohol use disorder with decompensated alcoholic liver cirrhosis * USG showed nodular cirrhotic liver with ascites and splenomegaly. We will keep monitoring. * . GI, to be on Protonix and lactulose as well as Xifaxan #Paroxysmal A-fib: * Was initially in RVR on admission which was thought to be due to GI bleed. * Currently normal sinus rhythm. Not on any anticoagulants. On carvedilol. * #Type 2 diabetes mellitus: A1c was 6.6. Controlled by diet. Insulin sliding scale. Accu-Cheks ACHS. DVT prophylaxis; SCDs Medications at Discharge Home Medications lactulose 20 gram/30 mL oral solution 20 g (30 mL) PO TID #3,000 mL 01/14/23 nadolol 20 mg tablet 10 mg PO DAILY #30 tabs 01/14/23 pantoprazole 40 mg tablet,delayed release 40 mg PO DAILY #60 tabs 01/14/23 rifaximin 550 mg tablet (Xifaxan) 550 mg PO BID #60 tabs 01/14/23 Weight / BMI Weight Weight: 227 lb 4.745 oz Body Mass Index (BMI) 28.4 ABG / Lab / Microbiology Data Result Diagrams: 01/14/23 06:25 01/14/23 06:25 Laboratory: Laboratory Results - last 24 hr 01/13/23 08:15: Fluid Amylase 24 01/13/23 15:53: POC Glucose 156 H 01/13/23 22:23: POC Glucose 119 H 01/14/23 06:25: WBC 3.9 L, RBC 2.60 L, Hgb 7.5 L, Hct 23.0 L, MCV 88.5, MCH 28.8, MCHC 32.6, RDW Std Deviation 46.5 H, RDW Coeff of Abimael 15.2 H, Plt Count 93 L, MPV 11.5, Immature Gran % (Auto) 0.300, Neut % (Auto) 68.5, Lymph % (Auto) 16.5 L, [place] % (Auto) 11.9 H, Eos % (Auto) 2.3, Baso % (Auto) 0.5, Absolute Neuts (auto) 2.7, Absolute Lymphs (auto) 0.64 L, Nucleated RBC % 0 01/14/23 06:25: Sodium 136, Potassium 3.5, Chloride 105, Carbon Dioxide 26.0, Anion Gap 5, BUN 12, Creatinine 0.65 L, Estim Creat Clear Calc 149.86, Est GFR (MDRD) Af Amer 162, Est GFR (MDRD) Non-Af 134, BUN/Creatinine Ratio 18.4, Glucose 130 H, Calcium 7.9 L, Total Bilirubin 0.70, AST 18, ALT 22, Alkaline Phosphatase 98, Total Protein 5.8 L, Albumin 2.2 L, Globulin 3.6, Albumin/Globulin Ratio 0.6 L 01/14/23 06:29: POC Glucose 128 H 01/14/23 11:54: POC Glucose 157 H Microbiology: Microbiology 01/13/23 08:15 Fluid - Ascites Gram Stain - Final D/C Instructions Discharge Diet: Low fat / Low cholesterol Weight Bearing Status: Weight bearing as tolerated Call your doctor if you observe: Fever of 101 or Higher, Shortness of breath, Dizziness, Swelling in the ankles and Chest pain Discharge Plan Admission Admit Date/Time: 01/08/23 23:20 Primary Reason for Your Visit: GI bleed, esophageal varices Attending Provider: Jasmina Patel Primary Care Provider: Care Physician,No Primary Consulting Providers: Darius Mosher ; Piotr Page ; Maulik Haque Instructions Patient Instructions: NATALIA RN Paracentesis Dc Discharge Orders/Prescriptions Prescriptions: New lactulose 20 gram/30 mL solution 20 g PO TID Qty: 3000 2RF pantoprazole 40 mg tablet,delayed release (DR/EC) 40 mg PO DAILY Qty: 60 2RF nadolol 20 mg tablet 10 mg PO DAILY Qty: 30 1RF Xifaxan 550 mg tablet 550 mg PO BID Qty: 60 1RF Referrals / Follow Up: Carlos Escobar MD [Med Staff - Active Staff] - Within 2 Weeks Eliezer Loomis DO [Med Staff - Active Staff] - Within 2 Weeks Care Physician,No Primary [Primary Care Provider] - Within 2 Weeks Disposition Disposition (needs filled in before D/C Order can be placed): Home, Self Care
[2023-01-14 14:12] LABS: Pathologist Comment/Body Fluid Reviewed
[2023-01-14 14:22] VITALS: BP 133/63; PULSE 64; RESP 16; TEMP 37.1; O2SAT 100
--- NOTE | 2023-01-14 14:39 | PHA.DC.MC ---
Pharmacy Service has performed discharge medication reconciliation and counseling for this patient. 1. LACTULOSE 20 GM PO TID 2. PANTOPRAZOLE 40 MG PO DAILY 3. NADOLOL 10MG PO DAILY 4. RIFAXIMIN 550MG PO BID The patient's discharge medication list was reviewed for discrepancies and discrepancies were resolved. Home Medications lactulose 20 gram/30 mL oral solution 20 g (30 mL) PO TID #3,000 mL 01/14/23 nadolol 20 mg tablet 10 mg PO DAILY #30 tabs 01/14/23 pantoprazole 40 mg tablet,delayed release 40 mg PO DAILY #60 tabs 01/14/23 rifaximin 550 mg tablet (Xifaxan) 550 mg PO BID #60 tabs 01/14/23 The patient was counseled on the following discharge medications and changes in medications for homegoing were reviewed. The Reason for Use, instructions for use, and potential side effects were reviewed for all new medications. The patient's questions regarding all of their medications were answered. The patient was able to verbally demonstrate an understanding of their discharge medications. Patient counseled by pharmacy analystBill.
--- NOTE | 2023-01-14 14:39 | CASEMGMT ---
Patient discharging on Xifaxan. LACIE ARMENTA called [facility] to clarify cost, requiring prior auth. LACIE ARMENTA clarified with Dr. Loomis if patient is to discharge on Xifaxan after reviewing notes. Per Dr. Loomis, patient does not need to discharge on Xifaxan, hospitalist notified.
--- NOTE | 2023-01-14 18:25 | PN.GI_ITS ---
Subjective Subjective Patient has been doing very well. He has not shown any signs of encephalopathy. He is tolerating a diet. He is not showing any signs of GI bleeding. Objective Data Objective Data Vital Signs: Vital Signs Temp Pulse Resp BP Pulse Ox O2 Del Method O2 Flow Rate 98.7 F 64 16 133/63 H 100 Room Air 1 01/14/23 14:22 01/14/23 14:22 01/14/23 14:22 01/14/23 14:22 01/14/23 14:22 01/14/23 14:22 01/11/23 10:00 Oxygen Flow Rate (L/min) 1 Oxygen Delivery Method [3] Room Air Oxygen Delivery Method [2] Room Air Oxygen Delivery Method [1 ( Room Air Initial Baseline)] Oxygen Delivery Method Room Air Weight: 227 lb 4.745 oz Body Mass Index (BMI) 28.4 Intake & Output: Intake and Output for Last 24 Hours 01/12/23 01/13/23 01/14/23 23:59 23:59 23:59 Intake Total 1274.04 / 1274.04 1210 / 1210 580 / 580 Output Total 200 / 200 8050 / 8050 Balance 1074.04 / 1074.04 -6840 / -6840 580 / 580 Lab / Micro Data Result Diagrams: 01/14/23 06:25 01/14/23 06:25 Labs: Laboratory Results - last 24 hr 01/13/23 08:15: Fluid Amylase 24 01/13/23 08:15: Miscellaneous Test 01/13/23 08:15: Fl Pathologist Comment Reviewed 01/13/23 08:15: Miscellaneous Cytology SEE PATHOLOGY REPORT 01/13/23 22:23: POC Glucose 119 H 01/14/23 06:25: WBC 3.9 L, RBC 2.60 L, Hgb 7.5 L, Hct 23.0 L, MCV 88.5, MCH 28.8, MCHC 32.6, RDW Std Deviation 46.5 H, RDW Coeff of Abimael 15.2 H, Plt Count 93 L, MPV 11.5, Immature Gran % (Auto) 0.300, Neut % (Auto) 68.5, Lymph % (Auto) 16.5 L, [place] % (Auto) 11.9 H, Eos % (Auto) 2.3, Baso % (Auto) 0.5, Absolute Neuts (auto) 2.7, Absolute Lymphs (auto) 0.64 L, Nucleated RBC % 0 01/14/23 06:25: Sodium 136, Potassium 3.5, Chloride 105, Carbon Dioxide 26.0, Anion Gap 5, BUN 12, Creatinine 0.65 L, Estim Creat Clear Calc 149.86, Est GFR (MDRD) Af Amer 162, Est GFR (MDRD) Non-Af 134, BUN/Creatinine Ratio 18.4, Glucose 130 H, Calcium 7.9 L, Total Bilirubin 0.70, AST 18, ALT 22, Alkaline Phosphatase 98, Total Protein 5.8 L, Albumin 2.2 L, Globulin 3.6, Albumin/Globulin Ratio 0.6 L 01/14/23 06:29: POC Glucose 128 H 01/14/23 11:54: POC Glucose 157 H Micro: Microbiology 01/13/23 08:15 Fluid - Ascites Gram Stain - Final Physical Exam Const alert, oriented x3 and no apparent distress General Appearance: cooperative and comfortable HEENT normocephalic, head/scalp atraumatic, hearing grossly normal bilaterally and moist oral mucous membranes Mouth: oral and palatal mucosa normal Eyes PERRL and EOMs intact bilaterally Neck no lymphadenopathy, supple and no JVD Lymph Lymphatic: no lymphadenopathy noted and no lymphedema noted Resp normal respiratory effort, normal air movement and clear to auscultation bilaterally Cardio regular rate, regular rhythm, S1 normal heart sound, S2 normal heart sound and no murmurs GI GI Narrative: Soft, mildly distended. No organomegaly. No tenderness. Extremity normal to inspection, full ROM, normal capillary refill, no clubbing, cyanosis or edema and no calf tenderness General Extremity: no tenderness to palpation of joints or extremities Skin General Skin Exam: no breakdown Neuro oriented x3, CN's II-XII intact bilaterally, moves all extremities and no focal motor deficits Coordination / Balance: oahuzz-fw-pogm test normal Motor Exam: strength 5/5 throughout Psych thought process normal, cooperative and affect normal Appearance: appropriate Assessment & Plan Assessment/Plan (1) Paroxysmal atrial fibrillation: (2) Diabetes mellitus type II, controlled, with no complications: (3) Upper GI bleed: PLAN: Plan For upper GI bleed 57-year-old gentleman with hematemesis and possible cirrhosis complicated by thrombocytopenia, coagulopathy, A-fib with RVR. He will need to undergo an emergent endoscopy to evaluate his upper GI tract. Recommend PPI drip, octreotide drip, ceftriaxone 1 g IV every 24 hours. Recommend ultrasound of the right upper quadrant. Checking for chronic hepatitis B and chronic hepatitis C. Keep MAP close to 60 as possible. He was explained alternatives, risk, benefits include not withstanding bleeding, infection, sepsis, perforation, need for emergent surgery . He will have an ASA of 3. 6/: He is status post upper GI bleed secondary to esophageal varices and gastric varices status post banding. He has been maintained on PPI drip and octreotide. He is getting ceftriaxone 1 g IV every 24 hours. He can have a liquid diet today. If his hemoglobin continues to be stable then he can be switched to Protonix 40 mg p.o. twice daily, lactulose 30 cc p.o. twice daily,, Xifaxan 550 mg p.o. twice a day and nadolol 10 mg p.o. twice daily. Awaiting chronic viral hepatitis work-up. He may also need screening for hepatocellular carcinoma with alpha-fetoprotein. His abdomen is becoming slightly more di stended he may need a paracentesis prior to leaving the hospital. 01/14: His hemoglobin has been holding steady. He has not shown any signs of GI bleed. If he goes home he will need to be on Protonix 40 mg p.o. twice daily, lactulose 30 mg p.o. twice daily and nadolol 10 mg p.o. twice daily. No a lcohol. With his age and lack of comorbidities, but it is except for diabetes and paroxysmal atrial fibrillation he may be transplant candidate in the future if he continues sobriety for 6 months. Charges/Coding Visit Charges Inpatient E&M: 43035 Subs Hosp L3
== END 2023-01-14 17:08 | disposition home or self-care (01) | DRG 299 ==
LOC: ED 22:20 → ICU 01-09 01:59 → PCU 01-11 13:40
PROVIDERS: Family Medicine; Internal Medicine; Internal Medicine Gastroenterology; Admitting Provider Hospitalist; Emergency Provider Emergency Medicine; Visit Provider Student in an Organized Health Care Education/Training Program
PROC: 0DJ08ZZ Inspection of Upper Intestinal Tract, Via Natural or Artificial Opening Endoscopic (ICD-10-PCS; CPT 43235; principal; 2023-01-09 13:10)
DX: I86.4 Gastric varices (principal); I85.01 Esophageal varices with bleeding; D68.9 Coagulation defect, unspecified; D62 Acute posthemorrhagic anemia; K70.31 Alcoholic cirrhosis of liver with ascites; E88.09 Other disorders of plasma-protein metabolism, not elsewhere classified; I95.9 Hypotension, unspecified; E11.65 Type 2 diabetes mellitus with hyperglycemia; I48.0 Paroxysmal atrial fibrillation; K58.9 Irritable bowel syndrome, unspecified; F17.220 Nicotine dependence, chewing tobacco, uncomplicated; F10.10 Alcohol abuse, uncomplicated; G89.29 Other chronic pain
CPT/HCPCS: 36415; 49083; 74018; 76700; 80053; 80076; 81002; 82150; 82945; 82962; 83036; 83615; 83690; 85014; 85018; 85025; 85610; 85730; 86850; 86900; 86901; 86920; 87015; 87070; 87075; 87116; 87205; 87206; 88108; 88305; 88313; 89050; 93005; 99284; 99406; J7030; J7050; J7120; P9016; P9047; A4216; J2405; J3490

== ENCOUNTER → 2023-01-21 | Outpatient (CLI) | payer MEDICARE, SELFPAY ==
[2023-01-21 12:27] LABS: Absolute Lymphocyte Count 0.77 X10^3/uL (0.83-4.51); Absolute Neutrophil Count 3.7 X10^3/uL (2.0-7.7); Basophil# 0.04 X10^3/uL; Basophil% 0.8 % (0-1); Eosinophil# 0.08 X10^3/uL; Eosinophils% 1.5 % (0-5); Hemoglobin 9.4 g/dL (13.0-16.5); Lymphocyte # 0.77 X10^3/ul (0.83-4.51); Lymphocyte % 14.8 % (19-41); Mean Corp Hgb Conc 31.3 g/dL (32-36); Mean Corpuscular Hgb 27.9 pg (27.0-32.0); Mean Platelet Vol. 10.9 fl (6.2-12.0); Monocyte# 0.62 X10^3/uL; Monocyte% 11.9 % (0-10); NRBC Flagged by Analyzer 0 % (0-5); Neutrophil # 3.67 X10^3/uL (2.7-7.7); Neutrophil % 70.8 % (47-70); Platelet Count 174 K/mm3 (150-450); RBC Distribution Width CV 15.1 % (11.6-14.6); RBC Distribution Width SD 48.7 fl (35.1-43.9); Red Blood Count 3.37 M/mm3 (4.6-6.2); White Blood Count 5.2 K/mm3 (4.4-11.0)
[2023-01-21 12:41] LABS: International Normalized Ratio 1.2; Prothrombin Time (Protime)PT. 15.6 SECONDS (11.7-14.9)
[2023-01-21 12:54] LABS: Vitamin B12 1209 pg/mL (211-911)
[2023-01-21 13:00] LABS: ALB/GLOB Ratio 0.5 RATIO (0.9-2.4); AST(SGOT) 27 U/L (15-37); Alanine Aminotransfer ALT/SGPT 28 U/L (16-61); Albumin, Serum 2.4 g/dL (3.2-5.0); Alkaline Phosphatase 155 U/L (45-117); Anion Gap 3 (5-15); BUN 13 mg/dL (7-18); BUN/Creat Ratio 16.4 RATIO (10-20); Calcium,Total 8.2 mg/dL (8.5-10.1); Chloride 105 mmol/L (98-107); EST Glomerular Filtration Rate 106 mL/min (>60); Est Glom Filt Rate - Afr Amer 129 mL/min (>60); Ferritin 29 ng/mL (26-388); Globulin 4.8 g/dL (2.2-4.2); Glucose 172 mg/dL (74-106); Iron 19 ug/dL (65-175); Iron Binding Capacity,Total 259 ug/dL (250-450); LDH 175 U/L (87-241); PERCENT IRON SATURATION 7.3 % (15.0-55.0); Potassium 4.3 mmol/L (3.5-5.1); Protein, Total 7.2 g/dL (6.4-8.2); Sodium Level 135 mmol/L (136-145); Thyroid Stim Hormone (TSH) 2.25 uIU/mL (0.358-3.74)
[2023-01-22 13:08] LABS: Anti-Centromere B Ab 0.6 AI (0.0-0.9); Anti-Chromatin <0.2 AI (0.0-0.9); Anti-Jo <0.2 AI (0.0-0.9); Anti-Nuclear Antibody Test Negative (.); Anti-Scleroderma-70 AB <0.2 AI (0.0-0.9); Anti-dsDNA Ab <1 IU/mL (0-9); RNP Ab <0.2 AI (0.0-0.9); SJOGREN'S Anti-SS-A test < 0.2 AI (0.0-0.9); SJOGREN'S Anti-SS-B test < 0.2 AI (0.0-0.9); Smith Ab <0.2 AI (0.0-0.9)
[2023-01-22 14:09] LABS: AFP, Tumor Marker < 1.8 ng/mL (0.0-8.4); Anti-Smooth Muscle ABS 9 Units (0-19); Ceruloplasmin 31.7 mg/dL (16.0-31.0); Cytoplasmic Ab (C-ANCA) <1:20 titer (Neg:<1:20); Perinuclear Ab (P-ANCA) <1:20 titer (Neg:<1:20)
== END | disposition home or self-care (01) ==
LOC: LAB 11:39
PROVIDERS: PCP Internal Medicine; Referring Provider Internal Medicine Gastroenterology; Visit Provider Internal Medicine Gastroenterology
DX: K70.31 Alcoholic cirrhosis of liver with ascites (principal); I48.0 Paroxysmal atrial fibrillation
CPT/HCPCS: 36415; 80053; 82105; 82140; 82390; 82607; 82728; 83516; 83540; 83550; 83615; 84443; 85025; 85610; 86038; 86225; 86235; 86256

== ENCOUNTER → 2023-01-24 | Outpatient (CLI) | payer MEDICARE, SELFPAY ==
[2023-01-24 16:37] LABS: Microalbumin,Random Urine 6.5 mg/L (NO RANGE EST.); Microalbumin:Creatinine Ratio 2.6 mg/g CRE (<30 mg/g CRE)
== END | disposition home or self-care (01) ==
LOC: LABSPEC 14:59
PROVIDERS: PCP Internal Medicine; Referring Provider Internal Medicine; Visit Provider Internal Medicine
DX: E11.9 Type 2 diabetes mellitus without complications (principal)
CPT/HCPCS: 82043; 82570

== ENCOUNTER → 2023-02-05 | Outpatient (CLI) | payer MEDICARE, SELFPAY ==
--- NOTE | 2023-02-05 07:43 | US_ITS ---
PROCEDURE: Ultrasound guided paracentesis. DATE OF EXAMINATION: February 05, 2023. INDICATION: Male, 57 years old. Ascites. PHYSICIAN: Del Avalos M.D. TECHNIQUE: The risks, benefits, and alternatives to the procedure were explained to the patient. The specific risks of bleeding, infection, and damage to bowel were detailed and accepted. Witnessed informed consent was obtained. The abdomen was ultrasonographically surveyed. An appropriate pocket of fluid was identified at the right lower quadrant. The skin were cleaned and prepped in the usual sterile fashion. Using ultrasound guidance, the peritoneal cavity was accessed with a 5-Maori paracentesis needle/catheter system. The trocar was removed. A total of 9050 ml of vik-colored fluid were removed from the peritoneal cavity. The catheter was removed and a sterile dressing was applied. The procedure was well tolerated. US/Paracentesis with US IMPRESSION: Ultrasound guided paracentesis. Electronically Signed: Del Avalos MD at 9:53 EDT ,
[2023-02-05 08:21] VITALS: BP 125/66; BP 128/70; BP 129/74; PULSE 57; PULSE 66; RESP 16; TEMP 36.4; O2SAT 100; O2SAT 99
[2023-02-05 09:07] VITALS: BMI 29.1
[2023-02-05] MEDS: Albumin Human 25% (100 mL) 25 GM/100 ML BAG IV ×2 (09:43→11:13)
[2023-02-05 13:13] VITALS: BP 102/48; PULSE 59; RESP 16; TEMP 36.1; O2SAT 99
== END | disposition home or self-care (01) ==
LOC: US 07:43
PROVIDERS: PCP Internal Medicine; Referring Provider Internal Medicine Gastroenterology; Visit Provider Internal Medicine Gastroenterology
DX: R18.8 Other ascites (principal)
CPT/HCPCS: 96365; 96366; 36430; 49083; J7050; P9047

== ENCOUNTER 2023-02-10 07:47 | Outpatient (CLI) | payer MEDICARE, SELFPAY ==
--- NOTE | 2023-02-10 07:49 | US_ITS ---
STUDY: ABDOMINAL ULTRASOUND -4 quadrants. REASON FOR VISIT: Male, 57 years old ASCITES TECHNIQUE: Ultrasound evaluation of the 4 quadrants was performed with real-time and static manjarrez-scale imaging. TECHNICAL QUALITY: Adequate. COMPARISON: None. FINDINGS: The 4 quadrants were examined for ascites. Small amount of fluid is seen in the left lower quadrant and right lower quadrant. Not enough fluid for safe paracentesis. US/Abdomen Limited IMPRESSION: Not enough fluid for safe paracentesis. Electronically Signed: Del Avalos MD at 8:53 EDT ,
== END 2023-02-10 07:48 | disposition home or self-care (01) ==
LOC: MEDOUTP 07:48
PROVIDERS: PCP Internal Medicine; Referring Provider Internal Medicine Gastroenterology; Visit Provider Internal Medicine Gastroenterology
DX: R18.8 Other ascites (principal)
CPT/HCPCS: 76705

== ENCOUNTER 2023-02-13 12:05 | Emergency (ER) | payer MEDICARE, SELFPAY ==
[2023-02-13 12:05] VITALS: BP 131/86; PULSE 67; RESP 20; TEMP 35.8; O2SAT 99; BMI 26.9
--- NOTE | 2023-02-13 12:27 | EX.ED.DYSGE1 ---
HPI <TONIO Chappell - Last Filed: 02/13/23 17:50> History of Present Illness Chief Complaint: Complaint Narrative Narrative: Patient presenting today with complaints of dysuria and decreased urinary stream since having his Mcclain catheter removed when he was hospitalized at the beginning of January. He was hospitalized due to hematemesis and was found to have liver cirrhosis and esophageal varices at that time. Patient reports that he also has ascites and is now on a diuretic which is making his urinary symptoms worse. Reports that he has been having dribbling and increased pelvic pressure that is getting worse. PMH includes paroxysmal atrial fibrillation, type 2 diabetes, liver cirrhosis. PFSH <TONIO Chappell - Last Filed: 02/13/23 17:50> PFSH Medical History Arthritis Carpal tunnel syndrome Chronic back pain Chronic pain Diabetes mellitus type II, controlled, with no complications IBS (irritable bowel syndrome) Paroxysmal atrial fibrillation Restless leg syndrome Stomach ulcer Home Medications nadolol 20 mg tablet 10 mg (1/2 x 20 mg) PO DAILY #30 tabs 01/14/23 [Rx Last Taken Unknown] pantoprazole 40 mg tablet,delayed release 40 mg PO DAILY #60 tabs 01/14/23 [Rx Last Taken Unknown] Saccharomyces boulardii 250 mg capsule (Digest Probiotic (S.boulardii)) 250 mg PO BID 01/21/23 [History Last Taken Unknown] amino acids 82 gram-328 kcal/100 gram oral powder (Complete Amino Acid Mix) ea PO 01/21/23 [History Last Taken Unknown] parker root extract 15 mg chewable tablet mg PO 01/21/23 [History Last Taken Unknown] parker root extract 50 mg tablet mg PO 01/21/23 [History Last Taken Unknown] handicap placard #1 ea 01/21/23 [Rx Last Taken Unknown] capsaicin 0.1 % topical cream 1 applic topical TID #42.5 grams 01/27/23 [Rx Last Taken Unknown] rifaximin 550 mg tablet (Xifaxan) 550 mg PO BID #60 tabs 01/28/23 [Rx Last Taken Unknown] furosemide 20 mg tablet (Lasix) 10 mg (1/2 x 20 mg) PO DAILY #30 tabs 01/31/23 [Rx Last Taken Unknown] spironolactone 25 mg tablet 25 mg PO DAILY #30 tabs 01/31/23 [Rx Last Taken Unknown] Allergy/AdvReac Type Severity Reaction Status Date / Time doxepin AdvReac Severe Itching Verified 01/21/23 14:43 bupropion [From Wellbutrin] AdvReac Mild Other Verified 01/21/23 14:58 pregabalin [From Lyrica] AdvReac Mild Other Verified 01/21/23 14:58 enalapril AdvReac Other Verified 01/21/23 14:43 gabapentin [From Neurontin] AdvReac Other Verified 01/21/23 14:43 niacin AdvReac Other Verified 01/21/23 14:43 Xlnvtpe-ZZX-WaH Reductase AdvReac Pain in Verified 01/21/23 14:43 Inhibitor joints [Zxxepqz-Ous-Miy Reductase Inhibitor] Family History Sister Breast cancer Depression Osteoporosis Mother Cancer lung Father Heart disease Brother Liver disease Surgical History H/O of nasal cauterization H/O oral surgery History of surgical procedure Social History household members: significant other current occupational status: disabled current occupation: disability due to pain Smoking Status: Former smoker quit date: 01/15/23 Smokeless tobacco user: chewing tobacco alcohol intake: former year quit: 2022 substance use type: does not use what type of physical activity do you participate in: walking frequency: daily do you feel safe at home: Yes ROS <TONIO Chappell - Last Filed: 02/13/23 17:50> ROS ED Constitutional Constitutional ED: Denies chills, fever(s) or sweats Eyes Eyes: Denies blurry vision or diplopia Cardiovascular Cardiovascular: Denies chest pain Respiratory/Chest Respiratory/Chest: Denies cough or dyspnea Gastrointestinal Gastrointestinal: Denies abdominal pain, nausea or vomiting Genitourinary Genitourinary ED: Reports dribbling, dysuria and urinary frequency; Denies hematuria Musculoskeletal Musculoskeletal: Denies arthralgias, back pain or myalgias Integumentary Denies abscess, Abrasions or rash Neurologic Neurologic: Denies weakness EXAM <TONIO Chappell - Last Filed: 02/13/23 17:50> Physical Exam Const Vital Signs: 02/13/23 12:05 02/13/23 13:42 02/13/23 15:43 Temperature 96.5 F L 98 F Temperature Source Temporal Oral Pulse Rate 67 63 78 Respiratory Rate 20 H 16 16 Blood Pressure 131/86 H 123/66 H 126/76 H Blood Pressure Mean 101 85 92 Pulse Ox 99 100 99 Oxygen Delivery Method Room Air Room Air Positive well nourished, well developed and no apparent distress General Appearance ED: well developed HEENT Reports normocephalic and head/scalp atraumatic Mouth ED: Yes moist mucous membranes normal Eyes PERRL and EOMs intact bilaterally Neck full ROM and supple Chest Wall inspection of chest normal Resp normal respiratory effort and clear to auscultation bilaterally Cardio regular rate and regular rhythm GI soft to palpation, non-tender and no masses GI Narrative: Abdominal distention secondary to ascites Back/Spine normal ROM and normal to inspection Extremity normal to inspection and full ROM Neuro oriented x3, CN's II-XII intact bilaterally, moves all extremities, no focal motor deficits and no sensory deficits noted Sensorium / Orientation: awake and alert Psych mental status grossly normal and thought process normal Skin no rashes or lesions noted and no wounds <Dr. Ciro Bee MD - Last Filed: 02/13/23 16:29> Physical Exam Const Vital Signs: 02/13/23 12:05 02/13/23 13:42 02/13/23 15:43 Temperature 96.5 F L 98 F Temperature Source Temporal Oral Pulse Rate 67 63 78 Respiratory Rate 20 H 16 16 Blood Pressure 131/86 H 123/66 H 126/76 H Blood Pressure Mean 101 85 92 Pulse Ox 99 100 99 Oxygen Delivery Method Room Air Room Air MDM <TONIO Chappell - Last Filed: 02/13/23 17:50> [facility] Narrative Medical decision making narrative: Patient presenting with difficulty urinating ever since having a Mcclain catheter placed while he was admitted in the hospital beginning of January 2023 for GI bleed. Ever since having the Mcclain removed he reports he has had a progressively more difficult time urinating. Bladder scan was performed and there was 667 mL fluid. He reports he has been dribbling. Nursing did attempt to place Mcclain catheter but were unsuccessful, attending ED physician attempted to place Mcclain catheter and was also unsuccessful. We will attempt to have patient transferred as we do not have urology on-call today. Patient will be transferred to [facility] in stable condition. He is comfortable with plan. I discussed the case with Dr. Galvez at [facility] who will accept the patient in transfer. <Dr. Ciro Bee MD - Last Filed: 02/13/23 16:29> [facility] Narrative Medical decision making narrative: Patient presenting with difficulty urinating ever since having a Mcclain catheter placed while he was admitted in the hospital beginning of January 2023 for GI bleed. Ever since having the Mcclain removed he reports he has had a progressively more difficult time urinating. Bladder scan was performed and there was 667 mL fluid. He reports he has been dribbling. Nursing did attempt to place Mcclain catheter but were unsuccessful, attending ED physician attempted to place Mcclain catheter and was also unsuccessful. We will attempt to have patient transferred as we do not have urology on-call today. I discussed the case with Dr. Galvez at [facility] who will accept the patient in transfer. Treatment and Re-Evaluation :: I have personally performed a face to face assessment of the patient and have reviewed the UMA Note. I performed a substantive portion of the visit including all aspects of the following. My hinkle findings include: History: Patient presents with progressively more difficulty urinating. He states he just gets a small amount out. He has a little bit of pain in the distal penis. No blood. He is currently on diuretics because of his cirrhosis. But he is not having fevers or chills. He does not feel ill. He just has trouble urinating. He had a catheter placed while he was in the hospital. He does not recall any difficulties related to this but states he was out of it. I do not see any documentation from urology and he never saw urologist. Therefore I do not think they had difficulty placing this originally. Exam: Patient awake alert no acute distress. Despite his multiple medical problems he is very nontoxic pleasant. Exam does show distended abdomen but he states that is the way its been and is mostly cirrhosis. I do not feel a distended bladder but this would be difficult to do with the cirrhosis. There is no tenderness in that area. No inguinal mass. Testicles are not tender. The tip of the penis looks normal. But more proximal aspect almost looks a little bit swollen. When we tried to place the catheter the catheter only goes in about 1 to 1-1/2 cm and then stops. There seems to be an obstruction very distally in the urethra and its proximal to this that seems to be distended. I do not have a bladder scan yet. There is no bleeding that I see on exam. No discharge. The nurses tried a regular catheter, coud? catheter and I tried a catheter and we cannot get any progression of the Mcclain beyond about 1-1/2 cm. Medical Decision Making: I explained to the patient that I have no urologist available at this time. We cannot get a catheter in. Were going to have to get him to a facility that can likely do filiform and follower for bypassing this suspected constriction of the distal urethra. Discharge Plan Triage Chief Complaint: Complaint ED Midlevel Provider: Gail Fontenot ED Provider: Ciro Bee Dx/Rx/DC Orders Clinical Impression: Acute urinary obstruction, Urethral stenosis, History of cirrhosis Prescriptions: No Action parker root extract 15 mg tablet,chewable PO Complete Amino Acid Mix 82-328 gram-kcal/100 g powder PO Saccharomyces boulardii [Digest Probiotic (S.boulardii)] 250 mg capsule 250 mg PO BID parker root extract 50 mg tablet PO (DME) handicap placard See Rx Instructions .ROUTE .MEDSUPPLY Qty: 1 0RF Rx Instructions: Length of time: 5 years Dx: Impaired physical mobility z74.09 pantoprazole 40 mg tablet,delayed release (DR/EC) 40 mg PO DAILY Qty: 60 2RF nadolol 20 mg tablet 10 mg PO DAILY Qty: 30 1RF capsaicin 0.1 % cream 1 applic topical TID Qty: 42.5 0RF Rx Instructions: do not wash area for at least 30 min after application Xifaxan 550 mg tablet 550 mg PO BID Qty: 60 11RF furosemide [Lasix] 20 mg tablet 10 mg PO DAILY Qty: 30 1RF Rx Instructions: Take blood pressure prior to administration if less than 100/80 do not administer spironolactone 25 mg tablet 25 mg PO DAILY Qty: 30 11RF Primary Care Provider: Cayla Camacho Referrals: Cayla Camacho MD [Primary Care Provider] - Disposition Disposition: Acute Care Hospital Discharge Location: [facility] Discharge Date/Time: 02/13/23 16:52
[2023-02-13 13:42] VITALS: BP 123/66; PULSE 63; RESP 16; TEMP 36.6; O2SAT 100
--- NOTE | 2023-02-13 13:47 | ED.RN ---
Patient aware of treatment plan of transfer for urology services.
--- NOTE | 2023-02-13 14:11 | NURSING ---
CALLED [facility] TRANSFER LINE FAXED FACESHEET
--- NOTE | 2023-02-13 15:16 | NURSING ---
ACCEPTED AT [facility], WAITING ON A BED
--- NOTE | 2023-02-13 15:20 | NURSING ---
KIRA 2M 293, BED B NURSE TO NURSE [phone]
[2023-02-13 15:43] VITALS: BP 126/76; PULSE 78; RESP 16; O2SAT 99
--- NOTE | 2023-02-13 15:56 | NURSING ---
CALLED [facility], ETA IS 2 HOURS
== END 2023-02-13 16:52 | disposition short-term general hospital (02) ==
PROVIDERS: Emergency Provider Emergency Medicine; PCP Internal Medicine; Visit Provider Emergency Medicine
DX: N35.919 Unspecified urethral stricture, male, unspecified site (principal); K74.60 Unspecified cirrhosis of liver; I48.0 Paroxysmal atrial fibrillation; E11.9 Type 2 diabetes mellitus without complications; N13.9 Obstructive and reflux uropathy, unspecified; N48.89 Other specified disorders of penis; F17.220 Nicotine dependence, chewing tobacco, uncomplicated; R18.8 Other ascites
CPT/HCPCS: 99285

== ENCOUNTER → 2023-02-18 | Outpatient (CLI) | payer MEDICARE, SELFPAY ==
--- NOTE | 2023-02-18 08:02 | US_ITS ---
PROCEDURE: Ultrasound guided paracentesis. DATE OF EXAMINATION: February 18, 2023. INDICATION: Male, 57 years old. Ascites. PHYSICIAN: Del Avalos M.D. TECHNIQUE: The risks, benefits, and alternatives to the procedure were explained to the patient. The specific risks of bleeding, infection, and damage to bowel were detailed and accepted. Witnessed informed consent was obtained. The abdomen was ultrasonographically surveyed. An appropriate pocket of fluid was identified at the right lower quadrant. The skin were cleaned and prepped in the usual sterile fashion. Using ultrasound guidance, the peritoneal cavity was accessed with a 5-Maori paracentesis needle/catheter system. The trocar was removed. A total of 4750 ml of vik-colored fluid were removed from the peritoneal cavity. The catheter was removed and a sterile dressing was applied. The procedure was well tolerated. US/Paracentesis with US IMPRESSION: Ultrasound guided paracentesis. Electronically Signed: Del Avalos MD at 9:39 EDT ,
[2023-02-18 08:22] VITALS: BP 125/68; BP 129/75; BP 132/69; PULSE 71; PULSE 76; RESP 18; TEMP 36.6; O2SAT 97; O2SAT 98
[2023-02-18] MEDS: Lidocaine 2% (20 ml mdv) 20 ML Vial INFILT (08:22)
== END | disposition home or self-care (01) ==
PROVIDERS: PCP Internal Medicine; Referring Provider Internal Medicine Gastroenterology; Visit Provider Internal Medicine Gastroenterology
DX: R18.8 Other ascites (principal)
CPT/HCPCS: 49083

== ENCOUNTER → 2023-03-03 | Outpatient (CLI) | payer MEDICARE, SELFPAY ==
--- NOTE | 2023-03-03 09:34 | US_ITS ---
PROCEDURE: Ultrasound guided paracentesis. DATE OF EXAMINATION: March 03, 2023. INDICATION: Male, 57 years old. Ascites. PHYSICIAN: Del Avalos M.D. TECHNIQUE: The risks, benefits, and alternatives to the procedure were explained to the patient. The specific risks of bleeding, infection, and damage to bowel were detailed and accepted. Witnessed informed consent was obtained. The abdomen was ultrasonographically surveyed. An appropriate pocket of fluid was identified at the right lower quadrant. The skin were cleaned and prepped in the usual sterile fashion. Using ultrasound guidance, the peritoneal cavity was accessed with a 5-Swedish paracentesis needle/catheter system. The trocar was removed. A total of 5750 ml of vik-colored fluid were removed from the peritoneal cavity. The catheter was removed and a sterile dressing was applied. The procedure was well tolerated. US/Paracentesis with US IMPRESSION: Ultrasound guided paracentesis. Electronically Signed: Del Avalos MD at 11:14 EDT ,
[2023-03-03 09:54] VITALS: BP 115/65; BP 115/70; BP 125/65; PULSE 59; PULSE 62; PULSE 66; RESP 18; TEMP 36.5; O2SAT 99
[2023-03-03] MEDS: Lidocaine 2% (20 ml mdv) 20 ML Vial INFILT (09:57)
[2023-03-03] MEDS: 0.9% Saline Lock 10 ML Syringe IV (10:40)
[2023-03-03] MEDS: Albumin Human 25% (100 mL) 25 GM/100 ML BAG IV (11:20)
[2023-03-03 11:23] VITALS: BMI 27.7
[2023-03-03] MEDS: Albumin Human 25% (50 mL) 12.5 GM/50 ML IV.SOLN IV (12:52)
[2023-03-03 13:36] VITALS: BP 117/59; PULSE 61
== END | disposition home or self-care (01) ==
LOC: US 09:33
PROVIDERS: PCP Internal Medicine; Referring Provider Internal Medicine Gastroenterology; Visit Provider Internal Medicine Gastroenterology
DX: R18.8 Other ascites (principal)
CPT/HCPCS: 96365; 96366; 49083; J7050; P9047

== ENCOUNTER → 2023-03-17 | Outpatient (CLI) | payer MEDICARE, SELFPAY ==
--- NOTE | 2023-03-17 10:28 | US_ITS ---
PROCEDURE: Ultrasound guided paracentesis. DATE OF EXAMINATION: March 17, 2023. INDICATION: Male, 58 years old. Ascites. PHYSICIAN: Del Avalos M.D. TECHNIQUE: The risks, benefits, and alternatives to the procedure were explained to the patient. The specific risks of bleeding, infection, and damage to bowel were detailed and accepted. Witnessed informed consent was obtained. The abdomen was ultrasonographically surveyed. An appropriate pocket of fluid was identified at the right lower quadrant. The skin were cleaned and prepped in the usual sterile fashion. Using ultrasound guidance, the peritoneal cavity was accessed with a 5-English paracentesis needle/catheter system. The trocar was removed. A total of 8500 ml of vik-colored fluid were removed from the peritoneal cavity. The catheter was removed and a sterile dressing was applied. The procedure was well tolerated. US/Paracentesis with US IMPRESSION: Ultrasound guided paracentesis. Electronically Signed: Del Avalos MD at 12:18 EDT ,
[2023-03-17 10:42] VITALS: BP 107/69; BP 109/62; BP 109/75; BP 110/65; BP 125/94; BP 97/60; PULSE 109; PULSE 77; PULSE 83; PULSE 84; PULSE 88; PULSE 94; RESP 16; TEMP 36.3; O2SAT 96; O2SAT 98
[2023-03-17] MEDS: 0.9% Saline Lock 10 ML Syringe IV ×2 (12:39→12:47)
[2023-03-17] MEDS: Albumin Human 25% (100 mL) 25 GM/100 ML BAG IV ×2 (12:43→14:08)
[2023-03-17 12:44] VITALS: BMI 27.6
[2023-03-17 15:55] VITALS: BP 116/63; PULSE 92; RESP 16; O2SAT 97
== END | disposition home or self-care (01) ==
LOC: US 10:26
PROVIDERS: PCP Internal Medicine; Referring Provider Internal Medicine Gastroenterology; Visit Provider Internal Medicine Gastroenterology
DX: R18.8 Other ascites (principal)
CPT/HCPCS: 96365; 96366; 49083; J7050; P9047

== ENCOUNTER 2023-03-22 16:38 | Inpatient (IN) | payer MEDICARE, SELFPAY ==
[2023-03-22] VITALS (12 sets, daily range): BP systolic 92–114; BP diastolic 61–77; PULSE 87–104; RESP 16–18; TEMP 36.3–36.8; O2SAT 94–100; BMI 26.9; BMI 27.3
--- NOTE | 2023-03-22 16:51 | EKG12_ITS ---
Test Reason : DYSRHTHMIA Blood Pressure : / mmHG Vent. Rate : 101 BPM Atrial Rate : 326 BPM P-R Int : 000 ms QRS Dur : 090 ms QT Int : 362 ms P-R-T Axes : 000 018 028 degrees QTc Int : 469 ms Atrial flutter with variable A-V block Low voltage QRS Abnormal ECG Confirmed by BEBA GALVEZ, SARAH ([id number]), technical writer and editor YUMIKO OLEA ([id number]) on 03/24/2023 8:56:42 AM Referred By: LUDWIG Confirmed By:HALINA YODER MD
[2023-03-22] MEDS: 0.9% Normal Saline 1,000 ML 1000 ML IV (16:54)
--- NOTE | 2023-03-22 16:54 | EX.ED.DYSGE1 ---
HPI History of Present Illness Chief Complaint: GI Bleed Detail of Chief Complaint: Burping up blood and dark stool Informant: patient and spouse/S.O. Onset/Context/Timing Onset: Hours () Context: Sudden Onset Timing: Intermittent Quality: Bright red blood and dark stool Location: GI Current Severity: Moderate Maximum Severity: Moderate Worsened by: History of gastric and esophageal varices due to alcoholic liver disease wi Relieved by: Nothing Associated Symptoms Associated Symptoms: Hypotension and lightheadedness Narrative Narrative: Is a 58-year-old male with history of alcoholic liver disease with cirrhosis and ascites who underwent banding of his esophageal and gastric varices by Dr. Loomis January 2023. Patient states occasionally will have a drink. He drank heavily years ago. He denies bruising easily. He states his normal systolic pressure is 100-110. He did contact Dr. Loomis who recommended he come to the emergency department. He does have history of ascites and cirrhosis due to alcohol, concentric left ventricle hypertrophy, fibromyalgia and paroxysmal atrial fibrillation. There is history of marijuana use. Prior similar symptoms: Yes Recent Illness/Hospitalization: No (January 2023) [facility] Medical History Arthritis Carpal tunnel syndrome Chronic back pain Chronic pain Concentric left ventricular hypertrophy Diabetes mellitus type II, controlled, with no complications IBS (irritable bowel syndrome) 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 Paroxysmal atrial fibrillation Restless leg syndrome Stomach ulcer Home Medications nadolol 20 mg tablet 10 mg (1/2 x 20 mg) PO DAILY heart #30 tabs 01/14/23 [Rx Last Taken Unknown] pantoprazole 40 mg tablet,delayed release 40 mg PO DAILY acid reflux #60 tabs 01/14/23 [Rx Last Taken Unknown] Saccharomyces boulardii 250 mg capsule (Digest Probiotic (S.boulardii)) 250 mg PO BID gut health 01/21/23 [History Last Taken Unknown] amino acids 82 gram-328 kcal/100 gram oral powder (Complete Amino Acid Mix) 1 ea PO DAILY supplement 01/21/23 [History Last Taken Unknown] parker root extract 15 mg chewable tablet 15 mg PO BID supplement 01/21/23 [History Last Taken Unknown] parker root extract 50 mg tablet 50 mg PO BID 01/21/23 [History Last Taken Unknown] handicap placard #1 ea 01/21/23 [Rx Last Taken Unknown] rifaximin 550 mg tablet (Xifaxan) 550 mg PO BID irritable bowels #60 tabs 01/28/23 [Rx Last Taken Unknown] spironolactone 25 mg tablet 25 mg PO DAILY blood pressure #30 tabs 01/31/23 [Rx Last Taken Unknown] dicyclomine 20 mg tablet 20 mg PO BID irritable bowels #60 tabs 03/11/23 [Rx Last Taken Unknown] hydroxyzine HCl 10 mg tablet 10 mg PO Q8H PRN itching #30 tabs 03/12/23 [Rx Last Taken Unknown] Allergy/AdvReac Type Severity Reaction Status Date / Time doxepin AdvReac Severe Itching Verified 03/22/23 16:39 lactulose AdvReac Intermediate chills Verified 03/22/23 17:00 bupropion [From Wellbutrin] AdvReac Mild Other Verified 03/22/23 16:39 pregabalin [From Lyrica] AdvReac Mild Other Verified 03/22/23 16:39 enalapril AdvReac Other Verified 03/22/23 16:39 gabapentin [From Neurontin] AdvReac Other Verified 03/22/23 16:39 niacin AdvReac Other Verified 03/22/23 16:39 Wgtnefs-NOV-ZpI Reductase AdvReac Pain in Verified 03/22/23 16:39 Inhibitor joints [Czvlqjt-Gku-Jlz Reductase Inhibitor] iv contrast Allergy Mild Diarrhea Uncoded 03/05/23 13:32 Family History Sister Breast cancer Depression Osteoporosis Mother Cancer lung Father Heart disease Brother Liver disease Surgical History H/O of nasal cauterization H/O oral surgery History of surgical procedure Social History household members: significant other current occupational status: disabled current occupation: disability due to pain Smoking Status: Former smoker quit date: 01/15/23 Smokeless tobacco user: chewing tobacco alcohol intake: former year quit: 2022 substance use type: does not use caffeine: Yes what type of physical activity do you participate in: walking frequency: daily do you feel safe at home: Yes ROS ROS ED Constitutional Constitutional ED: Denies chills, fever(s), subjective, sweats or weight loss Eyes Eyes: Denies blurry vision, change in vision or diplopia ENT ENT ED: Denies ear pain, rhinorrhea or sore throat Cardiovascular Cardiovascular: Reports other Details: Orthostatic symptoms ; Denies chest pain, orthopnea, palpitations, paroxysmal nocturnal dyspnea or racing heartbeat Respiratory/Chest Respiratory/Chest: Reports dyspnea on exertion; Denies cough, dyspnea, orthopnea or paroxysmal nocturnal dyspnea Gastrointestinal Gastrointestinal: Reports nausea, vomiting and other Details: Hematochezia and dark-colored stool. ; Denies abdominal pain Genitourinary Genitourinary ED: Denies dysuria, hematuria or urinary frequency Musculoskeletal Musculoskeletal: Denies arthralgias, back pain, myalgias or neck pain Integumentary Denies rash Neurologic Neurologic: Reports weakness; Denies headache(s) or paresthesias Endocrine Endocrinology: Denies cold intolerance or heat intolerance Hematologic/Lymphatic Hematologic/Lymphatic: Reports as per HPI EXAM Physical Exam Const Vital Signs: 03/22/23 16:39 03/22/23 16:50 03/22/23 17:32 Temperature 97.3 F L Temperature Source Temporal Pulse Rate 88 87 98 Respiratory Rate 16 18 18 Blood Pressure 92/61 100/73 96/63 Blood Pressure Mean 71 82 74 Pulse Ox 100 98 99 Oxygen Delivery Method Room Air Room Air Room Air Positive well nourished and well developed General Appearance ED: well developed, NAD and pallor; Negative for cyanotic or diaphoretic HEENT Reports dry mucous membranes HEENT Narrative: Uvula is midline. There is no deviation with tongue with protrusion. Ears normal. Nares patent. Mouth ED: Yes dry mucous membranes Mouth: dry mucous membranes Eyes PERRL and EOMs intact bilaterally General Eye ED: Yes pale conjunctiva; Negative for scleral icterus Neck no lymphadenopathy, supple and no JVD Chest Wall inspection of chest normal and palpation of chest normal Resp normal respiratory effort and clear to auscultation bilaterally Cardio regular rate, regular rhythm, S1 normal heart sound, S2 normal heart sound and no murmurs GI non-tender and no masses; Negative for hepatosplenomegaly GI Narrative: Patient's abdomen is distended with a fluid wave. There is no peritoneal irritation. Bowel sounds are diminished. Auscultation: hypoactive bowel sounds Palpation: soft Back/Spine no CVA tenderness Extremity normal to inspection General Extremety ED: Negative for tenderness Neuro oriented x3, CN's II-XII intact bilaterally and no sensory deficits noted Sensorium / Orientation: alert Psych mental status grossly normal Skin no wounds and skin turgor normal General Skin Exam: pallor; Negative for elasticity normal or jaundice MDM MDM MDM Narrative Medical decision making narrative: Patient presents with history of upper GI bleed. With history of gastric and esophageal varices we will treat with octreotide, Protonix and ceftriaxone. Patient was typed and screened. Appropriate blood work was ordered. Once results are back we will contact Dr. Loomis and hospitalist for admission. Prior records for ER visits and inpatient dozens were reviewed as well as prior labs. He did receive a fluid bolus since he is hypotensive. Lab Data Attestation: I reviewed the patient's lab results. Lab results narrative: PT is slightly elevated. INR is normal. This is baseline for patient. White count is slight elevated. Patient has an approximate 1 g drop of hemoglobin compared to baseline. Labs: Laboratory Results - last 24 hr 03/22/23 03/22/23 16:50 17:00 WBC 11.9 H RBC 3.32 L Hgb 8.5 L Hct 27.3 L MCV 82.2 MCH 25.6 L MCHC 31.1 L RDW Std Deviation 49.8 H RDW Coeff of Abimael 16.6 H Plt Count 227 MPV 12.0 Immature Gran % (Auto) 0.400 Neut % (Auto) 75.3 H Lymph % (Auto) 11.2 L Vernon % (Auto) 9.1 Eos % (Auto) 3.4 Baso % (Auto) 0.6 Absolute Neuts (auto) 9.0 H Absolute Lymphs (auto) 1.33 Nucleated RBC % 0 PT 16.0 H INR 1.3 Sodium 138 Potassium 4.8 Chloride 108 H Carbon Dioxide 27.0 Anion Gap 3 L BUN 23 H Creatinine 0.82 Estim Creat Clear Calc 117.36 Est GFR (MDRD) Af Amer 125 Est GFR (MDRD) Non-Af 103 BUN/Creatinine Ratio 28.2 H Glucose 174 H Lactic Acid 1.7 Calcium 8.0 L Total Bilirubin 0.40 Direct Bilirubin 0.16 AST 27 ALT 25 Alkaline Phosphatase 103 Total Protein 5.9 L Albumin 2.4 L Globulin 3.5 Rhythm Strip Rhythm Strip: Narrow complex tachycardia. Uncertain whether patient has flutter or possi Rate: 106 EKG Initial EKG: Attestation: I personally reviewed and interpreted this EKG as follows: Interpretation: Atrial Flutter (With variable block. Rate is 101. Voltage is low. QRS duration is 90 ms. QT durations 162 ms. Sheridan is normal.) Treatment and Re-Evaluation :: The hospitalist and Dr. Loomis were paged at 1750. Critical Care Time Critical Care Time: Yes Critical care time (excluding procedures): 30-74 minutes (33), Including time spent: (History, physical, documentation, review of prior records, independent interpretation of results), Discussing w/Patient &/or Family/Fleet Service Manager, Discussing w/Consultants (Dr. Loomis and Dr. Haque) and Arranging Admission or Transfer Discharge Plan Triage Chief Complaint: GI Bleed ED Provider: Amari Bergman Dx/Rx/DC Orders Clinical Impression: Acute upper gastrointestinal bleeding, Concentric left ventricular hypertrophy, History of esophageal varices, Anemia due to acute blood loss, Hypotension, Ascites due to alcoholic cirrhosis, Atrial flutter by electrocardiogram Prescriptions: No Action parker root extract 15 mg tablet,chewable 15 mg PO BID Complete Amino Acid Mix 82-328 gram-kcal/100 g powder 1 ea PO DAILY Saccharomyces boulardii [Digest Probiotic (S.boulardii)] 250 mg capsule 250 mg PO BID parker root extract 50 mg tablet 50 mg PO BID (DME) handicap placard See Rx Instructions .ROUTE .MEDSUPPLY Qty: 1 0RF Rx Instructions: Length of time: 5 years Dx: Impaired physical mobility z74.09 pantoprazole 40 mg tablet,delayed release (DR/EC) 40 mg PO DAILY Qty: 60 2RF nadolol 20 mg tablet 10 mg PO DAILY Qty: 30 1RF Xifaxan 550 mg tablet 550 mg PO BID Qty: 60 11RF spironolactone 25 mg tablet 25 mg PO DAILY Qty: 30 11RF dicyclomine 20 mg tablet 20 mg PO BID Qty: 60 0RF hydroxyzine HCl 10 mg tablet 10 mg PO Q8H PRN (Reason: itching) Qty: 30 0RF Primary Care Provider: Cayla Camacho Referrals: Cayla Camacho MD [Primary Care Provider] - Disposition Disposition: Acute Care Hospital [facility]
[2023-03-22] MEDS: Ceftriaxone 1 GM/50 ML BAG IV (17:00)
[2023-03-22 17:06] LABS: Absolute Lymphocyte Count 1.33 X10^3/uL (0.83-4.51); Basophil# 0.07 X10^3/uL; Basophil% 0.6 % (0-1); Eosinophil# 0.41 X10^3/uL; Eosinophils% 3.4 % (0-5); Hematocrit 27.3 % (40-54); Hemoglobin 8.5 g/dL (13.0-16.5); Lymphocyte # 1.33 X10^3/ul (0.83-4.51); Lymphocyte % 11.2 % (19-41); Mean Corp Hgb Conc 31.1 g/dL (32-36); Mean Corpuscular Hgb 25.6 pg (27.0-32.0); Mean Corpuscular Volume 82.2 fL (80-94); Monocyte# 1.08 X10^3/uL; Monocyte% 9.1 % (0-10); NRBC Flagged by Analyzer 0 % (0-5); Neutrophil # 8.96 X10^3/uL (2.7-7.7); Neutrophil % 75.3 % (47-70); Platelet Count 227 K/mm3 (150-450); RBC Distribution Width CV 16.6 % (11.6-14.6); RBC Distribution Width SD 49.8 fl (35.1-43.9); Red Blood Count 3.32 M/mm3 (4.6-6.2); White Blood Count 11.9 K/mm3 (4.4-11.0)
[2023-03-22 17:26] LABS: International Normalized Ratio 1.3
[2023-03-22 17:38] LABS: Lactic Acid 1.7 mmol/L (0.4-1.9)
[2023-03-22 17:40] LABS: AST(SGOT) 27 U/L (15-37); Alanine Aminotransfer ALT/SGPT 25 U/L (16-61); Albumin, Serum 2.4 g/dL (3.2-5.0); Alkaline Phosphatase 103 U/L (45-117); Anion Gap 3 (5-15); BUN 23 mg/dL (7-18); BUN/Creat Ratio 28.2 RATIO (10-20); Bilirubin, Direct 0.16 mg/dL (0.00-0.30); Chloride 108 mmol/L (98-107); Creatinine, Serum 0.82 mg/dL (0.70-1.30); EST Glomerular Filtration Rate 103 mL/min (>60); Est Glom Filt Rate - Afr Amer 125 mL/min (>60); Estimated Creatinine Clearance 117.36 ml/min; Globulin 3.5 g/dL (2.2-4.2); Glucose 174 mg/dL (74-106); Potassium 4.8 mmol/L (3.5-5.1); Protein, Total 5.9 g/dL (6.4-8.2); Sodium Level 138 mmol/L (136-145)
--- NOTE | 2023-03-22 17:50 | NURSING ---
HOSPITALIST PAGED DR LEW PAGED
--- NOTE | 2023-03-22 17:54 | NURSING ---
DR OVERTON FOR DR NAVARRO
--- NOTE | 2023-03-22 18:07 | PCM.HP.STD ---
HPI - General General Date of Admission: 03/22/23 HPI Narrative FIDE HODGSNO, is a 58 M who presents to the hospital with multiple episodes of hematemesis. It was enough to drop his hemoglobin by about a gram and a 2-month span. He says that it started on with a little bit and then he had a some more this morning. His was monitoring his blood pressure and as it started to drop the decision was made to come into the hospital. He does have a hemoglobin of 8.5, vital signs are stable. He does have a history of cirrhosis with previous varices that need to be banded though these were incompletely banded. He denies any fevers or chills or any abdominal pain. He does have some abdominal distention and he gets a paracentesis every 2 weeks his last paracentesis was Friday. [facility] Medical History Arthritis Carpal tunnel syndrome Chronic back pain Chronic pain Concentric left ventricular hypertrophy Diabetes mellitus type II, controlled, with no complications IBS (irritable bowel syndrome) 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 Paroxysmal atrial fibrillation Restless leg syndrome Stomach ulcer Home Medications nadolol 20 mg tablet 10 mg (1/2 x 20 mg) PO DAILY heart #30 tabs 01/14/23 [Rx Last Taken Unknown] pantoprazole 40 mg tablet,delayed release 40 mg PO DAILY acid reflux #60 tabs 01/14/23 [Rx Last Taken Unknown] Saccharomyces boulardii 250 mg capsule (Digest Probiotic (S.boulardii)) 250 mg PO BID gut health 01/21/23 [History Last Taken Unknown] amino acids 82 gram-328 kcal/100 gram oral powder (Complete Amino Acid Mix) 1 ea PO DAILY supplement 01/21/23 [History Last Taken Unknown] parker root extract 15 mg chewable tablet 15 mg PO BID supplement 01/21/23 [History Last Taken Unknown] parker root extract 50 mg tablet 50 mg PO BID 01/21/23 [History Last Taken Unknown] handicap placard #1 ea 01/21/23 [Rx Last Taken Unknown] rifaximin 550 mg tablet (Xifaxan) 550 mg PO BID irritable bowels #60 tabs 01/28/23 [Rx Last Taken Unknown] spironolactone 25 mg tablet 25 mg PO DAILY blood pressure #30 tabs 01/31/23 [Rx Last Taken Unknown] dicyclomine 20 mg tablet 20 mg PO BID irritable bowels #60 tabs 03/11/23 [Rx Last Taken Unknown] hydroxyzine HCl 10 mg tablet 10 mg PO Q8H PRN itching #30 tabs 03/12/23 [Rx Last Taken Unknown] Allergy/AdvReac Type Severity Reaction Status Date / Time doxepin AdvReac Severe Itching Verified 03/22/23 16:39 lactulose AdvReac Intermediate chills Verified 03/22/23 17:00 bupropion [From Wellbutrin] AdvReac Mild Other Verified 03/22/23 16:39 pregabalin [From Lyrica] AdvReac Mild Other Verified 03/22/23 16:39 enalapril AdvReac Other Verified 03/22/23 16:39 gabapentin [From Neurontin] AdvReac Other Verified 03/22/23 16:39 niacin AdvReac Other Verified 03/22/23 16:39 Uvbdwpj-TXK-CuW Reductase AdvReac Pain in Verified 03/22/23 16:39 Inhibitor joints [Wlwxwal-Xlq-Emg Reductase Inhibitor] iv contrast Allergy Mild Diarrhea Uncoded 03/05/23 13:32 Family History Sister Breast cancer Depression Osteoporosis Mother Cancer lung Father Heart disease Brother Liver disease Surgical History H/O of nasal cauterization H/O oral surgery History of surgical procedure Social History household members: significant other current occupational status: disabled current occupation: disability due to pain Smoking Status: Former smoker quit date: 01/15/23 Smokeless tobacco user: chewing tobacco alcohol intake: former year quit: 2022 substance use type: does not use caffeine: Yes what type of physical activity do you participate in: walking frequency: daily do you feel safe at home: Yes ROS Constitutional Constitutional: Denies chills, fatigue, fever(s) or malaise Eyes Eyes: Denies blurry vision ENT HEENT: Denies headache(s) or nasal discharge Cardiovascular Cardiovascular: Denies chest pain, dyspnea on exertion or syncope Respiratory/Chest Respiratory/Chest: Denies cough, shortness of breath at rest or shortness of breath with exertion Gastrointestinal Gastrointestinal: Reports hematemesis; Denies constipation, diarrhea, nausea or vomiting Genitourinary Genitourinary: Denies dysuria Neurologic Neurologic: Denies focal weakness, numbness or tremor(s) Psychiatric Psychiatric: Denies anxiety or depression Vital Signs Vital Signs Vital Signs: 03/22/23 16:39 03/22/23 16:50 03/22/23 17:32 Temperature 97.3 F L Temperature Source Temporal Pulse Rate 88 87 98 Respiratory Rate 16 18 18 Blood Pressure 92/61 100/73 96/63 Blood Pressure Mean 71 82 74 Pulse Ox 100 98 99 Oxygen Delivery Method Room Air Room Air Room Air Weight Weight: 215 lb 2.738 oz Body Mass Index (BMI) 26.9 Physical Exam Narrative General: Alert, Oriented x3, Cooperative, No apparent distress HEENT: Atraumatic, PERRLA, EOMI, Normocephalic Oral: Moist Mucosa Neck: Supple, No JVD Lungs: Diminished, Normal air movement, No rhonchi, No wheeze, No rales Cardiovascular: Tachycardic, Regular Rhythm, Normal S1, Normal S2, No murmurs Abdomen: Soft, Non Tender, distended, No Hepato-splenomegaly Extremities: No edema, Capillary Refill Less than 3 Seconds Skin: No rashes, No breakdown Musculoskeletal: No Tenderness to Palpation of Joints or Extremities Neurological: Cranial nerves II-XII grossly intact, Motor Exam 5/5 strength throughout, Sensory exam intact to light touch and pain Psych/Mental Status: Normal Affect, Appropriate Results Lab / Micro Data 03/22/23 16:50 03/22/23 16:50 Labs: Laboratory Results - last 24 hr 03/22/23 16:50: WBC 11.9 H, RBC 3.32 L, Hgb 8.5 L, Hct 27.3 L, MCV 82.2, MCH 25.6 L, MCHC 31.1 L, RDW Std Deviation 49.8 H, RDW Coeff of Abimael 16.6 H, Plt Count 227, MPV 12.0, Immature Gran % (Auto) 0.400, Neut % (Auto) 75.3 H, Lymph % (Auto) 11.2 L, [place] % (Auto) 9.1, Eos % (Auto) 3.4, Baso % (Auto) 0.6, Absolute Neuts (auto) 9.0 H, Absolute Lymphs (auto) 1.33, Nucleated RBC % 0, PT 16.0 H, INR 1.3, Sodium 138, Potassium 4.8, Chloride 108 H, Carbon Dioxide 27.0, Anion Gap 3 L, BUN 23 H, Creatinine 0.82, Estim Creat Clear Calc 117.36, Est GFR (MDRD) Af Amer 125, Est GFR (MDRD) Non-Af 103, BUN/Creatinine Ratio 28.2 H, Glucose 174 H, Calcium 8.0 L, Total Bilirubin 0.40, Direct Bilirubin 0.16, AST 27, ALT 25, Alkaline Phosphatase 103, Total Protein 5.9 L, Albumin 2.4 L, Globulin 3.5 03/22/23 17:00: Lactic Acid 1.7 Micro: Microbiology 03/22/23 17:25 Stool Stool Occult Blood (LETY) - Final Occult Blood Positive Rhythm Strip Rhythm Strip: Narrow complex tachycardia. Uncertain whether patient has flutter or possi Rate: 106 Assessment & Plan Assessment/Plan (1) Anemia due to acute blood loss: (2) Acute upper gastrointestinal bleeding: PLAN: Plan 1. Acute blood loss anemia secondary to upper GI bleed secondary to varices from cirrhosis ? Cirrhosis secondary to steatohepatitis as well as medications ? They plan for pursuing transplant starting June ? We will continue with octreotide as well as Rocephin and Protonix drips ? Consult GI ? We will place him on a clear liquid diet ? Repeat H&H at midnight ? We will continue with his nadolol, his Xifaxan, and his Aldactone unless his blood pressures become unstable 2. A-fib ? Not a candidate for anticoagulation given above ? He is on nadolol it appears that occurs whenever he is stressed DVT: SCDs 75 minutes was spent on direct patient care, including documentation as well as chart review and collaboration with colleagues Charges/Coding Visit Charges Inpatient E&M: 38767 Init Hosp L3
--- NOTE | 2023-03-22 18:13 | NURSING ---
MED SURG KOTSONIS BLEED, VARICES, ANEMIA, ASCITES, CIRROHOSIS LIVER
--- NOTE | 2023-03-22 19:02 | ED.RN ---
report given to Maude in PACU
--- NOTE | 2023-03-22 19:18 | EX.PCM.CON.G ---
HPI Consult Data Date of Consult: 03/22/23 HPI Narrative Reason for Consultation: upper GI bleeding HPI Narrative: FIDE HODGSON, is a 58 M who presents with upper GI bleeding. On his last admission he presented with hematemesis and alcoholic cirrhosis complicated by thrombocytopenia, coagulopathy, A-fib with RVR.? His meld was calculated at and 16 and he was given a child Walters class C score. He underwent an emergent endoscopy and was discovered to have o esophageal varices and gastric varices status post banding.? He was been maintained on PPI drip and octreotide.? He received ceftriaxone 1 g IV every 24 hours.? On discharge from the hospital his hemoglobin was 7.5 after it it dropped down to 6.5 from 12. He was sent home on Protonix 40 mg a day and nadolol 10 mg twice daily. He also was sent home on lactulose 30 cc 3 times a day. However he stopped taking the lactulose because he not like the taste. He refuses to take it again. The day before discharge she underwent large-volume paracentesis when she had 8 L of serosanguineous fluid removed after receiving ceftriaxone therapy. He also received 50 g of albumin. He has not been drinking any alcohol since that admission. Over the last several days he has been having multiple episodes of hematemesis. He was told to come to the hospital for evaluation. In the ED he he discovered to have a blood pressure of 92/58, pulse 93, respiratory rate of 18, temperature is 97.7 and was satting 95% on room air. Laboratory analysis displays WBC 11.9 H, RBC 3.32 L, Hgb 8.5 L, Hct 27.3 L, MCV 82.2, MCH 25.6 L, MCHC 31.1 L, RDW Std Deviation 49.8 H, RDW Coeff of Abimael 16.6 H, Plt Count 227, MPV 12.0, Immature Gran % (Auto) 0.400, Neut % (Auto) 75.3 H, Lymph % (Auto) 11.2 L, [place] % (Auto) 9.1, Eos % (Auto) 3.4, Baso % (Auto) 0.6, Absolute Neuts (auto) 9.0 H, Absolute Lymphs (auto) 1.33, Nucleated RBC % 0, PT 16.0 H, INR 1.3, Sodium 138, Potassium 4.8, Chloride 108 H, Carbon Dioxide 27.0, Anion Gap 3 L, BUN 23 H, Creatinine 0.82, PFSH Medical History Arthritis Carpal tunnel syndrome Chronic back pain Chronic pain Concentric left ventricular hypertrophy Diabetes mellitus type II, controlled, with no complications IBS (irritable bowel syndrome) 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 Paroxysmal atrial fibrillation Restless leg syndrome Stomach ulcer Home Medications nadolol 20 mg tablet 10 mg (1/2 x 20 mg) PO DAILY heart #30 tabs 01/14/23 [Rx Last Taken Unknown] pantoprazole 40 mg tablet,delayed release 40 mg PO DAILY acid reflux #60 tabs 01/14/23 [Rx Last Taken Unknown] Saccharomyces boulardii 250 mg capsule (Digest Probiotic (S.boulardii)) 250 mg PO BID gut health 01/21/23 [History Last Taken Unknown] amino acids 82 gram-328 kcal/100 gram oral powder (Complete Amino Acid Mix) 1 ea PO DAILY supplement 01/21/23 [History Last Taken Unknown] parker root extract 15 mg chewable tablet 15 mg PO BID supplement 01/21/23 [History Last Taken Unknown] parker root extract 50 mg tablet 50 mg PO BID 01/21/23 [History Last Taken Unknown] handicap placard #1 ea 01/21/23 [Rx Last Taken Unknown] rifaximin 550 mg tablet (Xifaxan) 550 mg PO BID irritable bowels #60 tabs 01/28/23 [Rx Last Taken Unknown] spironolactone 25 mg tablet 25 mg PO DAILY blood pressure #30 tabs 01/31/23 [Rx Last Taken Unknown] dicyclomine 20 mg tablet 20 mg PO BID irritable bowels #60 tabs 03/11/23 [Rx Last Taken Unknown] hydroxyzine HCl 10 mg tablet 10 mg PO Q8H PRN itching #30 tabs 03/12/23 [Rx Last Taken Unknown] Allergy/AdvReac Type Severity Reaction Status Date / Time doxepin AdvReac Severe Itching Verified 03/22/23 16:39 lactulose AdvReac Intermediate chills Verified 03/22/23 17:00 bupropion [From Wellbutrin] AdvReac Mild Other Verified 03/22/23 16:39 pregabalin [From Lyrica] AdvReac Mild Other Verified 03/22/23 16:39 enalapril AdvReac Other Verified 03/22/23 16:39 gabapentin [From Neurontin] AdvReac Other Verified 03/22/23 16:39 niacin AdvReac Other Verified 03/22/23 16:39 Rvkzpma-Akm-Iwh Reductase AdvReac Pain in Verified 03/22/23 16:39 Inhibitor joints iv contrast Allergy Mild Diarrhea Uncoded 03/05/23 13:32 Family History Sister Breast cancer Depression Osteoporosis Mother Cancer lung Father Heart disease Brother Liver disease Surgical History H/O of nasal cauterization H/O oral surgery History of surgical procedure Social History household members: significant other current occupational status: disabled current occupation: disability due to pain Smoking Status: Former smoker quit date: 01/15/23 Smokeless tobacco user: chewing tobacco alcohol intake: former year quit: 2022 substance use type: does not use caffeine: Yes what type of physical activity do you participate in: walking frequency: daily do you feel safe at home: Yes ROS Constitutional Constitutional: Denies chills, fatigue, fever(s) or malaise Eyes Eyes: Denies blurry vision ENT HEENT: Denies headache(s) or nasal discharge Cardiovascular Cardiovascular: Denies chest pain, dyspnea on exertion or syncope Respiratory/Chest Respiratory/Chest: Denies cough, shortness of breath at rest or shortness of breath with exertion Gastrointestinal Gastrointestinal: Reports hematemesis; Denies constipation, diarrhea, nausea or vomiting Genitourinary Genitourinary: Denies dysuria Neurologic Neurologic: Denies focal weakness, numbness or tremor(s) Psychiatric Psychiatric: Denies anxiety or depression Physical Exam Narrative General: Alert, Oriented x3, Cooperative, No apparent distress HEENT: Atraumatic, PERRLA, EOMI, Normocephalic Oral: Moist Mucosa Neck: Supple, No JVD Lungs: Diminished, Normal air movement, No rhonchi, No wheeze, No rales Cardiovascular: Tachycardic, Regular Rhythm, Normal S1, Normal S2, No murmurs Abdomen: Soft, Non Tender, distended, No Hepato-splenomegaly Extremities: No edema, Capillary Refill Less than 3 Seconds Skin: No rashes, No breakdown Musculoskeletal: No Tenderness to Palpation of Joints or Extremities Neurological: Cranial nerves II-XII grossly intact, Motor Exam 5/5 strength throughout, Sensory exam intact to light touch and pain Psych/Mental Status: Normal Affect, Appropriate Lab / Micro Data 03/22/23 16:50 03/22/23 16:50 Labs: Laboratory Results - last 24 hr 03/22/23 16:50: WBC 11.9 H, RBC 3.32 L, Hgb 8.5 L, Hct 27.3 L, MCV 82.2, MCH 25.6 L, MCHC 31.1 L, RDW Std Deviation 49.8 H, RDW Coeff of Abimael 16.6 H, Plt Count 227, MPV 12.0, Immature Gran % (Auto) 0.400, Neut % (Auto) 75.3 H, Lymph % (Auto) 11.2 L, [place] % (Auto) 9.1, Eos % (Auto) 3.4, Baso % (Auto) 0.6, Absolute Neuts (auto) 9.0 H, Absolute Lymphs (auto) 1.33, Nucleated RBC % 0, PT 16.0 H, INR 1.3, Sodium 138, Potassium 4.8, Chloride 108 H, Carbon Dioxide 27.0, Anion Gap 3 L, BUN 23 H, Creatinine 0.82, Estim Creat Clear Calc 117.36, Est GFR (MDRD) Af Amer 125, Est GFR (MDRD) Non-Af 103, BUN/Creatinine Ratio 28.2 H, Glucose 174 H, Calcium 8.0 L, Total Bilirubin 0.40, Direct Bilirubin 0.16, AST 27, ALT 25, Alkaline Phosphatase 103, Total Protein 5.9 L, Albumin 2.4 L, Globulin 3.5, Blood Type A POSITIVE, Antibody Screen NEGATIVE 03/22/23 17:00: Lactic Acid 1.7 Micro: Microbiology 03/22/23 17:25 Stool Stool Occult Blood (LETY) - Final Occult Blood Positive Rhythm Strip Rhythm Strip: Narrow complex tachycardia. Uncertain whether patient has flutter or possi Rate: 106 Assessment & Plan Assessment/Plan (1) Paroxysmal atrial fibrillation: (2) Diabetes mellitus type II, controlled, with no complications: QUALIFIERS: Diabetes mellitus half-way insulin use: without half-way use Qualified Code(s): E11.9 - Type 2 diabetes mellitus without complications (3) Upper GI bleed: PLAN: Plan For upper GI bleed 57-year-old gentleman with hematemesis and possible cirrhosis complicated by thrombocytopenia, coagulopathy, A-fib with RVR. He will need to undergo an emergent endoscopy to evaluate his upper GI tract. Recommend PPI drip, octreotide drip, ceftriaxone 1 g IV every 24 hours. Keep MAP close to 60 as possible. He was explained alternatives, risk, benefits include not withstanding bleeding, infection, sepsis, perforation, need for emergent surgery . He will have an ASA of 3. Charges/Coding Visit Charges Inpatient E&M: 47070 Init Hosp L3
--- NOTE | 2023-03-22 19:59 | OP.CCLET_ITS ---
03/22/2023 Cayla Camacho Md Re : Upper GI endoscopy procedure for Alan Padilla Dear Janice This procedure was performed on Wednesday, March 22, 2023. My impressions and recommendations are as follows: Impressions : - Grade III esophageal varices actively bleeding. Incompletely eradicated. Banded. - Red blood in the stomach. - Blood in the duodenal bulb. - No specimens collected. Recommendations : - Return patient to hospital cast for ongoing care. - NPO today. - Continue present medications. My findings are described in the full procedure note, which is enclosed. If I can be of further assistance, please feel free to contact me at . Sincerely, Eliezer Loomis, 03/22/2023 7:58:51 PM This report has been signed electronically.
--- NOTE | 2023-03-22 19:59 | OP.EGD_ITS ---
Patient Name: Alan Padilla Procedure Date: 03/22/2023 6:52 PM Date of : 1965 Age: 58 Procedure: Upper GI endoscopy Indications: Hematemesis Providers: Eliezer Loomis DO Medicines: Monitored Anesthesia Care Patient Profile: This is a 58 year old male. Refer to note in patient chart for documentation of history and physical. Patient has symptoms of acute vomiting. Complications: No immediate complications. Procedure: Pre-Anesthesia Assessment: - Prior to the procedure, a History and Physical was performed, and patient medications and allergies were reviewed. The patient is competent. The risks and benefits of the procedure and the sedation options and risks were discussed with the patient. All questions were answered and informed consent was obtained. Patient identification and proposed procedure were verified by the physician. Mental Status Examination: alert and oriented. Airway Examination: normal oropharyngeal airway and neck mobility. Respiratory Examination: clear to auscultation. CV Examination: normal. Prophylactic Antibiotics: The patient does not require prophylactic antibiotics. Prior Anticoagulants: The patient has taken no anticoagulant or antiplatelet agents. ASA Grade Assessment: IV - A patient with severe systemic disease that is a constant threat to life. After reviewing the risks and benefits, the patient was deemed in satisfactory condition to undergo the procedure. The anesthesia plan was to use monitored anesthesia care (MAC). Immediately prior to administration of medications, the patient was re-assessed for adequacy to receive sedatives. The heart rate, respiratory rate, oxygen saturations, blood pressure, adequacy of pulmonary ventilation, and response to care were monitored throughout the procedure. The physical status of the patient was re-assessed after the procedure. After obtaining informed consent, the endoscope was passed under direct vision. Throughout the procedure, the patient's blood pressure, pulse, and oxygen saturations were monitored continuously. The Endoscope was introduced through the mouth, and advanced to the second part of duodenum. The upper GI endoscopy was accomplished without difficulty. The patient tolerated the procedure well. Scope In: 7:31:30 PM Scope Out: 7:46:37 PM Total Procedure Duration Time 0 hours 15 minutes 7 seconds Findings: Four columns of grade III varices actively bleeding were found in the entire esophagus, 43 cm from the incisors. They were 20 mm in largest diameter. Red wili signs were present. Scarring from prior treatment was visible. Six bands were successfully placed with incomplete eradication of varices. Bleeding had stopped at the end of the procedure. Red blood was found in the stomach. Red blood was found in the duodenal bulb. Impression: - Grade III esophageal varices actively bleeding. Incompletely eradicated. Banded. - Red blood in the stomach. - Blood in the duodenal bulb. - No specimens collected. Recommendation: - Return patient to hospital cast for ongoing care. - NPO today. - Continue present medications. Procedure Code(s): --- Professional --- 69433, Esophagogastroduodenoscopy, flexible, transoral; with band ligation of esophageal/gastric varices CPT copyright 2021 [employer]. All rights reserved. The codes documented in this report are preliminary and upon medical social worker review may be revised to meet current compliance requirements. Eliezer Loomis DO 03/22/2023 7:58:51 PM This report has been signed electronically. Number of Addenda: 0 Note Initiated On: 03/22/2023 6:52 PM
[2023-03-22] MEDS: rifAXIMin 550 MG Tablet PO (22:31)
[2023-03-23] VITALS (7 sets, daily range): BP systolic 113–139; BP diastolic 58–75; PULSE 68–79; RESP 16; TEMP 36.9–37.1; O2SAT 95–97
[2023-03-23 01:04] LABS: Hematocrit 25.3 % (40-54); Hemoglobin 7.5 g/dL (13.0-16.5)
[2023-03-23 05:31] LABS: Absolute Lymphocyte Count 0.76 X10^3/uL (0.83-4.51); Absolute Neutrophil Count 5.3 X10^3/uL (2.0-7.7); Basophil# 0.03 X10^3/uL; Basophil% 0.4 % (0-1); Eosinophil# 0.12 X10^3/uL; Eosinophils% 1.7 % (0-5); Hematocrit 22.8 % (40-54); Lymphocyte # 0.76 X10^3/ul (0.83-4.51); Mean Corp Hgb Conc 30.7 g/dL (32-36); Mean Corpuscular Hgb 25.1 pg (27.0-32.0); Mean Corpuscular Volume 81.7 fL (80-94); Mean Platelet Vol. 12.7 fl (6.2-12.0); Monocyte# 0.66 X10^3/uL; Monocyte% 9.5 % (0-10); NRBC Flagged by Analyzer 0 % (0-5); Neutrophil # 5.32 X10^3/uL (2.7-7.7); Platelet Count 135 K/mm3 (150-450); RBC Distribution Width CV 16.8 % (11.6-14.6); RBC Distribution Width SD 49.3 fl (35.1-43.9); Red Blood Count 2.79 M/mm3 (4.6-6.2); White Blood Count 6.9 K/mm3 (4.4-11.0)
[2023-03-23 05:57] LABS: ALB/GLOB Ratio 0.7 RATIO (0.9-2.4); AST(SGOT) 21 U/L (15-37); Alanine Aminotransfer ALT/SGPT 24 U/L (16-61); Albumin, Serum 2.3 g/dL (3.2-5.0); Alkaline Phosphatase 93 U/L (45-117); Anion Gap 5 (5-15); BUN 26 mg/dL (7-18); BUN/Creat Ratio 33.4 RATIO (10-20); Calcium,Total 7.6 mg/dL (8.5-10.1); Chloride 110 mmol/L (98-107); Creatinine, Serum 0.78 mg/dL (0.70-1.30); EST Glomerular Filtration Rate 109 mL/min (>60); Est Glom Filt Rate - Afr Amer 132 mL/min (>60); Estimated Creatinine Clearance 120.02 ml/min; Globulin 3.4 g/dL (2.2-4.2); Glucose 164 mg/dL (74-106); Potassium 4.5 mmol/L (3.5-5.1); Protein, Total 5.7 g/dL (6.4-8.2); Sodium Level 141 mmol/L (136-145)
[2023-03-23] MEDS: Ceftriaxone 1 GM/50 ML BAG IV (09:15)
[2023-03-23] MEDS: rifAXIMin 550 MG Tablet PO (09:16)
[2023-03-23] MEDS: Nadolol 20 MG Tablet 10 MG PO (09:17)
[2023-03-23] MEDS: Spironolactone 25 MG Tablet PO (09:17)
[2023-03-23] MEDS: Ensure Clear 120 ML Liquid PO ×2 (09:18→13:45)
--- NOTE | 2023-03-23 10:36 | PN_ITS ---
Subjective Subjective Patient seen and examined. He had no complaints this morning. He came in with hematemesis and had EGD which showed bleeding varices. He is s/p banding of the varices. Review of systems is otherwise negative. Objective Data Objective Data Vital Signs: Vital Signs Temp Pulse Resp BP Pulse Ox O2 Del Method 98.7 F 78 16 139/75 H 97 Room Air 03/23/23 08:43 03/23/23 08:43 03/23/23 08:43 03/23/23 08:43 03/23/23 08:43 03/23/23 08:43 Oxygen Delivery Method Room Air Weight: 212 lb 15.465 oz Body Mass Index (BMI) 27.3 Intake & Output: Intake and Output for Last 24 Hours 03/21/23 03/22/23 03/23/23 23:59 23:59 23:59 Intake Total 1085 / 1085 88.17 / 88.17 Balance 1085 / 1085 88.17 / 88.17 Lab / Micro Data 03/23/23 04:37 03/23/23 04:37 Labs: Laboratory Results - last 24 hr 03/22/23 16:50: WBC 11.9 H, RBC 3.32 L, Hgb 8.5 L, Hct 27.3 L, MCV 82.2, MCH 25.6 L, MCHC 31.1 L, RDW Std Deviation 49.8 H, RDW Coeff of Abimael 16.6 H, Plt Count 227, MPV 12.0, Immature Gran % (Auto) 0.400, Neut % (Auto) 75.3 H, Lymph % (Auto) 11.2 L, Crockett % (Auto) 9.1, Eos % (Auto) 3.4, Baso % (Auto) 0.6, Absolute Neuts (auto) 9.0 H, Absolute Lymphs (auto) 1.33, Nucleated RBC % 0, PT 16.0 H, INR 1.3, Sodium 138, Potassium 4.8, Chloride 108 H, Carbon Dioxide 27.0, Anion Gap 3 L, BUN 23 H, Creatinine 0.82, Estim Creat Clear Calc 117.36, Est GFR (MDRD) Af Amer 125, Est GFR (MDRD) Non-Af 103, BUN/Creatinine Ratio 28.2 H, Glucose 174 H, Calcium 8.0 L, Total Bilirubin 0.40, Direct Bilirubin 0.16, AST 27, ALT 25, Alkaline Phosphatase 103, Total Protein 5.9 L, Albumin 2.4 L, Globulin 3.5, Blood Type A POSITIVE, Antibody Screen NEGATIVE 03/22/23 17:00: Lactic Acid 1.7 03/23/23 00:35: Hgb 7.5 L, Hct 25.3 L 03/23/23 04:37: WBC 6.9, RBC 2.79 L, Hgb 7.0 L, Hct 22.8 L, MCV 81.7, MCH 25.1 L , MCHC 30.7 L, RDW Std Deviation 49.3 H, RDW Coeff of Abimael 16.8 H, Plt Count 135 L, MPV 12.7 H, Immature Gran % (Auto) 0.400, Neut % (Auto) 77.0 H, Lymph % (Auto) 11.0 L, Crockett % (Auto) 9.5, Eos % (Auto) 1.7, Baso % (Auto) 0.4, Absolute Neuts (auto) 5.3, Absolute Lymphs (auto) 0.76 L, Nucleated RBC % 0, Sodium 141, Potassium 4.5, Chloride 110 H, Carbon Dioxide 26.0, Anion Gap 5, BUN 26 H, Creatinine 0.78, Estim Creat Clear Calc 120.02, Est GFR (MDRD) Af Amer 132, Est GFR (MDRD) Non-Af 109, BUN/Creatinine Ratio 33.4 H, Glucose 164 H, Calcium 7.6 L , Total Bilirubin 0.40, AST 21, ALT 24, Alkaline Phosphatase 93, Total Protein 5.7 L, Albumin 2.3 L, Globulin 3.4, Albumin/Globulin Ratio 0.7 L Micro: Microbiology 03/22/23 17:25 Stool Stool Occult Blood (LETY) - Final Occult Blood Positive Rhythm Strip Rhythm Strip: Narrow complex tachycardia. Uncertain whether patient has flutter or possi Rate: 106 Physical Exam Const alert, oriented x3 and no apparent distress General Appearance: cooperative HEENT normocephalic, head/scalp atraumatic, moist oral mucous membranes and oropharynx normal Eyes PERRL and EOMs intact bilaterally Neck supple and no JVD Lymph Lymphatic: no lymphadenopathy noted Resp Resp Narrative: mildly diminished breath sounds bibasally, no wheezes or crackles. on room air. Cardio regular rate, regular rhythm, S1 normal heart sound, S2 normal heart sound and no murmurs GI GI Narrative: abdomen soft, moderately distended, no guarding or rebound tenderness. Positive fluid thrill. Extremity normal capillary refill, no clubbing, cyanosis or edema and no calf tenderness Skin General Skin Exam: no breakdown Neuro CN's II-XII intact bilaterally, no focal motor deficits, no sensory deficits noted and deep tendon reflexes 2+ bilaterally Motor Exam: strength 5/5 throughout Psych thought process normal and cooperative Appearance: appropriate Assessment & Plan Assessment/Plan (1) Ascites due to alcoholic cirrhosis: (2) Acute upper gastrointestinal bleeding: PLAN: Plan #Acute upper GI bleed due to bleeding esophageal varices * has a history of cirrhosis due to steatohepatitis. Awaiting transplant in June * s/p EGD with evidence of bleeding esophageal varices which were incompletely eradicated with banding * on octreotide and PPI drip * on IV ceftriaxone * GI on board * on nadolol, xifaxan and aldactone * #Afib: on nadolol. Cannot be anticoagulated in light of upper GI bleed #Cirrhosis with ascites * says he last had paracentesis a week ago on Friday; he has it every other week * will monitor * DVT prophylaxis; SCDs Charges/Coding Visit Charges Inpatient E&M: 77056 Subs Hosp L2
--- NOTE | 2023-03-23 18:27 | NURSING ---
Report called to [facility]
[2023-03-23] MEDS: 0.9% Saline Lock 10 ML Syringe IV (20:38)
--- NOTE | 2023-03-23 20:54 | NURSING ---
Transport arrived at 2029 to transport him to [facility]. Patient left the unit at 2054.
--- NOTE | 2023-03-31 15:20 | DS.PCM_ITS ---
Providers Date of Admission: 03/22/23 Date of Discharge: 03/31/23 Primary Care Physician: Dr. Cayla Camacho MD Consultations 03/23/23 07:31 Consult: Gastroenterology Routine Consulting Provider: [facility] Reason for Consult: UGI bleed due to varices EMERGENT Consult: No MD Notified: Yes Date Notified: 03/23/23 Time Notified: 07:31 Method of Notification: Text Reason For Visit: VARICEAL BLEEDING Diagnosis Discharge Diagnosis (1) Ascites due to alcoholic cirrhosis: Status: Acute Code(s): K70.31 - Alcoholic cirrhosis of liver with ascites (2) Acute upper gastrointestinal bleeding: Status: Acute Code(s): K92.2 - Gastrointestinal hemorrhage, unspecified Plan #Acute upper GI bleed due to bleeding esophageal varices * has a history of cirrhosis due to steatohepatitis. Awaiting transplant in June * s/p EGD with evidence of bleeding esophageal varices which were incompletely eradicated with banding * on octreotide and PPI drip * on IV ceftriaxone * GI on board * on nadolol, xifaxan and aldactone * #Afib: on nadolol. Cannot be anticoagulated in light of upper GI bleed #Cirrhosis with ascites * says he last had paracentesis a week ago on Friday; he has it every other week * will monitor * DVT prophylaxis; SCDs Medications at Discharge Home Medications nadolol 20 mg tablet 10 mg (1/2 x 20 mg) PO DAILY heart #30 tabs 01/14/23 pantoprazole 40 mg tablet,delayed release 40 mg PO DAILY acid reflux #60 tabs 01/14/23 Saccharomyces boulardii 250 mg capsule (Digest Probiotic (S.boulardii)) 250 mg PO BID gut health 01/21/23 amino acids 82 gram-328 kcal/100 gram oral powder (Complete Amino Acid Mix) 1 ea PO DAILY supplement 01/21/23 parker root extract 15 mg chewable tablet 15 mg PO BID supplement 01/21/23 parker root extract 50 mg tablet 50 mg PO BID 01/21/23 handicap placard #1 ea 01/21/23 rifaximin 550 mg tablet (Xifaxan) 550 mg PO BID irritable bowels #60 tabs 01/28 spironolactone 25 mg tablet 25 mg PO DAILY blood pressure #30 tabs 01/31/23 dicyclomine 20 mg tablet 20 mg PO BID irritable bowels #60 tabs 03/11/23 hydroxyzine HCl 10 mg tablet 10 mg PO Q8H PRN itching #30 tabs 03/12/23 Hospital Course Operations None Procedures EGD Summary of Care Provided Minutes Spent on Discharge: 55 Hospital Course: Patient is a 58-year-old male with a past medical history as outlined which includes alcoholic liver cirrhosis with esophageal varices. He was admitted through the ED on 03/22/2023 with a complaint of hematemesis. He had had multiple episodes of hematemesis stated that had worsened. His noted that his blood pressure was dropping so he was brought into the ED. On admission hemoglobin was 8.5. Patient was noted to be getting regular paracentesis every 2 weeks. On admission he was managed for acute blood loss anemia due to upper GI bleed due to varices from cirrhosis. Gastroenterology was consulted. He had EGD which showed bleeding esophageal varices which were incompletely eradicated with banding. He was placed on octreotide and PPI drip and placed on IV ceftriaxone. Patient was also on nadolol and Xifaxan as well as Aldactone. Patient has been stable after the EGD but per gastroenterology, patient was a candidate for TIPS otherwise she will keep on having the esophageal variceal bleeding. Decision was made to transfer patient to [facility] for TIPS procedure. He was accepted at [facility] and was discharged to [facility] on 03/23/2023. Patient was seen on 03/23/2023 prior to him being transferred. He had had the EGD he had no active complaints. Review of systems was otherwise negative. Physical Exam Const alert, oriented x3 and no apparent distress General Appearance: cooperative, comfortable and well kempt HEENT normocephalic, head/scalp atraumatic, hearing grossly normal bilaterally, moist oral mucous membranes and oropharynx normal Mouth: oral and palatal mucosa normal Eyes PERRL, EOMs intact bilaterally and conjunctivae normal Neck no lymphadenopathy, supple and no JVD Lymph Lymphatic: no lymphadenopathy noted Resp Resp Narrative: mildly diminished breath sounds bibasally, no wheezes or crackles. on room air. Cardio regular rate, regular rhythm, S1 normal heart sound, S2 normal heart sound and no murmurs GI GI Narrative: abdomen soft, moderately distended, no guarding or rebound tenderness. Positive fluid thrill. Extremity normal capillary refill, no clubbing, cyanosis or edema and no calf tenderness Skin General Skin Exam: no breakdown Neuro CN's II-XII intact bilaterally, no focal motor deficits, no sensory deficits noted and deep tendon reflexes 2+ bilaterally Motor Exam: strength 5/5 throughout Psych thought process normal and cooperative Appearance: appropriate Weight / BMI Weight Weight: 212 lb 15.465 oz Body Mass Index (BMI) 27.3 ABG / Lab / Microbiology Data 03/23/23 04:37 03/23/23 04:37 Microbiology: Microbiology 03/22/23 17:25 Stool Stool Occult Blood (LETY) - Final Occult Blood Positive Meaningful Use Info Meaningful Use Diagnoses (Choose all that apply): None applicable Discharge Plan Admission Admit Date/Time: 03/22/23 18:04 Primary Reason for Your Visit: GI Bleed Attending Provider: Jasmina Patel Primary Care Provider: Cayla Camacho Consulting Providers: Eliezer Loomis Discharge Orders/Prescriptions Prescriptions: No Action parker root extract 15 mg tablet,chewable 15 mg PO BID Complete Amino Acid Mix 82-328 gram-kcal/100 g powder 1 ea PO DAILY Saccharomyces boulardii [Digest Probiotic (S.boulardii)] 250 mg capsule 250 mg PO BID parker root extract 50 mg tablet 50 mg PO BID (DME) handicap placard See Rx Instructions .ROUTE .MEDSUPPLY Qty: 1 0RF Rx Instructions: Length of time: 5 years Dx: Impaired physical mobility z74.09 pantoprazole 40 mg tablet,delayed release (DR/EC) 40 mg PO DAILY Qty: 60 2RF nadolol 20 mg tablet 10 mg PO DAILY Qty: 30 1RF Xifaxan 550 mg tablet 550 mg PO BID Qty: 60 11RF spironolactone 25 mg tablet 25 mg PO DAILY Qty: 30 11RF dicyclomine 20 mg tablet 20 mg PO BID Qty: 60 0RF hydroxyzine HCl 10 mg tablet 10 mg PO Q8H PRN (Reason: itching) Qty: 30 0RF Referrals / Follow Up: Cayla Camacho MD [Primary Care Provider] - Disposition Disposition (needs filled in before D/C Order can be placed): Acute Care Hospital Charges/Coding Visit Charges Inpatient E&M: 34969 Disch Hosp >30min
== END 2023-03-23 20:50 | disposition short-term general hospital (02) | DRG 432 ==
LOC: ED 18:10 → MS3 18:43
PROVIDERS: Internal Medicine Gastroenterology; Admitting Provider Family Medicine; Emergency Provider Emergency Medicine; PCP Internal Medicine; Visit Provider Student in an Organized Health Care Education/Training Program
PROC: 0DJ08ZZ Inspection of Upper Intestinal Tract, Via Natural or Artificial Opening Endoscopic (ICD-10-PCS; CPT 43235; principal; 2023-03-22 19:30)
DX: K70.31 Alcoholic cirrhosis of liver with ascites (principal); I85.11 Secondary esophageal varices with bleeding; D62 Acute posthemorrhagic anemia; I95.9 Hypotension, unspecified; E11.9 Type 2 diabetes mellitus without complications; I48.0 Paroxysmal atrial fibrillation; G89.29 Other chronic pain; Z87.891 Personal history of nicotine dependence
CPT/HCPCS: 36415; 80048; 80053; 80076; 82274; 83605; 85014; 85018; 85025; 85610; 86850; 86900; 86901; 86920; 93005; 97802; 99285; 99406; J7030; P9016; A4216; J2405; J3490

== ENCOUNTER → 2023-04-08 | Outpatient (CLI) | payer MEDICARE, SELFPAY ==
--- NOTE | 2023-04-08 07:47 | US_ITS ---
PROCEDURE: Ultrasound guided paracentesis. DATE OF EXAMINATION: April 08, 2023.. INDICATION: Male, 58 years old. Ascites. PHYSICIAN: Del Avalos M.D. TECHNIQUE: The risks, benefits, and alternatives to the procedure were explained to the patient. The specific risks of bleeding, infection, and damage to bowel were detailed and accepted. Witnessed informed consent was obtained. The abdomen was ultrasonographically surveyed. An appropriate pocket of fluid was identified at the right lower quadrant. The skin were cleaned and prepped in the usual sterile fashion. Using ultrasound guidance, the peritoneal cavity was accessed with a 5-Frisian paracentesis needle/catheter system. The trocar was removed. A total of 5020 ml of vik-colored fluid were removed from the peritoneal cavity. The catheter was removed and a sterile dressing was applied. The procedure was well tolerated. US/Paracentesis with US IMPRESSION: Ultrasound guided paracentesis. Electronically Signed: Del Avalos MD at 8:07 EDT ,
[2023-04-08 08:15] VITALS: BP 102/55; BP 106/63; BP 107/65; BP 116/61; PULSE 71; PULSE 75; PULSE 78; PULSE 82; RESP 16; TEMP 36.3; O2SAT 97; O2SAT 98; O2SAT 99
[2023-04-08] MEDS: Albumin Human 25% (100 mL) 25 GM/100 ML BAG IV (09:19)
[2023-04-08] MEDS: 0.9% NaCl Peripheral Flush Adult/Peds IV (09:23)
[2023-04-08 09:25] VITALS: BP 112/52; PULSE 70; RESP 16; TEMP 35.9; O2SAT 99; BMI 27.7
[2023-04-08 10:58] VITALS: BP 121/47; PULSE 72; RESP 16; TEMP 36.1; O2SAT 99
== END | disposition home or self-care (01) ==
LOC: US 07:46
PROVIDERS: PCP Internal Medicine; Referring Provider Internal Medicine Gastroenterology; Visit Provider Internal Medicine Gastroenterology
DX: R18.8 Other ascites (principal)
CPT/HCPCS: 96365; 96366; 49083; J7050; P9047

== ENCOUNTER → 2023-05-27 | Outpatient (CLI) | payer MEDICARE, SELFPAY ==
[2023-05-27 12:45] LABS: Erythrocyte Sedimentation Rate 6 mm/hr (0-20)
[2023-05-27 12:49] LABS: Absolute Lymphocyte Count 0.81 X10^3/uL (0.83-4.51); Absolute Neutrophil Count 2.8 X10^3/uL (2.0-7.7); Basophil# 0.04 X10^3/uL; Basophil% 0.9 % (0-1); Eosinophil# 0.13 X10^3/uL; Eosinophils% 3.1 % (0-5); Hematocrit 30.3 % (40-54); Hemoglobin 9.6 g/dL (13.0-16.5); Lymphocyte # 0.81 X10^3/ul (0.83-4.51); Lymphocyte % 19.1 % (19-41); Mean Corp Hgb Conc 31.7 g/dL (32-36); Mean Corpuscular Hgb 27.5 pg (27.0-32.0); Mean Corpuscular Volume 86.8 fL (80-94); Mean Platelet Vol. 12.5 fl (6.2-12.0); Monocyte% 11.8 % (0-10); NRBC Flagged by Analyzer 0 % (0-5); Neutrophil # 2.75 X10^3/uL (2.7-7.7); Neutrophil % 64.9 % (47-70); Platelet Count 115 K/mm3 (150-450); RBC Distribution Width CV 15.3 % (11.6-14.6); RBC Distribution Width SD 48.6 fl (35.1-43.9); Red Blood Count 3.49 M/mm3 (4.6-6.2); White Blood Count 4.2 K/mm3 (4.4-11.0)
[2023-05-27 12:55] LABS: ALB/GLOB Ratio 0.6 RATIO (0.9-2.4); AST(SGOT) 30 U/L (15-37); Alanine Aminotransfer ALT/SGPT 38 U/L (16-61); Albumin, Serum 2.6 g/dL (3.2-5.0); Alkaline Phosphatase 142 U/L (45-117); Anion Gap 6 (5-15); BUN 13 mg/dL (7-18); BUN/Creat Ratio 18.2 RATIO (10-20); CRP 4.65 mg/L (0.0-3.0); Calcium,Total 8.4 mg/dL (8.5-10.1); Chloride 108 mmol/L (98-107); Creatinine, Serum 0.72 mg/dL (0.70-1.30); EST Glomerular Filtration Rate 120 mL/min (>60); Est Glom Filt Rate - Afr Amer 145 mL/min (>60); Globulin 4.2 g/dL (2.2-4.2); Glucose 174 mg/dL (74-106); LDH 205 U/L (87-241); Potassium 4.2 mmol/L (3.5-5.1); Protein, Total 6.8 g/dL (6.4-8.2); Sodium Level 140 mmol/L (136-145)
[2023-05-27 12:58] LABS: International Normalized Ratio 1.3; Prothrombin Time (Protime)PT. 16.4 SECONDS (11.7-14.9)
[2023-05-28 17:42] LABS: Hemoglobin A1c 6.6 % (3.8-5.6)
== END | disposition home or self-care (01) ==
LOC: BIMLAB 07:58
PROVIDERS: PCP Internal Medicine; Referring Provider Internal Medicine; Visit Provider Internal Medicine
DX: K75.81 Nonalcoholic steatohepatitis (NASH) (principal); K70.31 Alcoholic cirrhosis of liver with ascites; E11.9 Type 2 diabetes mellitus without complications
CPT/HCPCS: 36415; 80053; 82140; 83036; 83615; 85025; 85610; 85652; 86140

== ENCOUNTER 2023-07-01 08:00 | Outpatient (RCR) | payer MEDICARE, SELFPAY ==
--- NOTE | 2023-03-12 15:55 | HP.PTEVAL_ITS ---
Patient's Visit Information Visit Information Visit Information: FIDE HODGSON Jr. is a 58 year old M referred to Physical Therapy by Dr. Cayla Camacho MD with a diagnosis of 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 and generalized weakness. Date of Evaluation: 03/06/23 Physical Therapist: Tristan Griffin DPT Visit Plan Duration: 6 Weeks Plan: Start with BLE strengthening, cardiovascular endurance training. Focus on progressive HEP. Pt. wants to do therapy on non paracentesis weeks due to higher levels of fatigue during those weeks. Subjective Subjective: Pt. is here today for his initial evaluation with diagnosis of 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 and generalized weakness. Pt. reports overall feeling fatigued and run down. He reports having B side pains, but this has been doing on for a few months now. He was recently diagnosed with his cirrhosis. He reports it is from prolonged medication use. Pt. is now having difficulty and fatigue with walking and any general movements throughout the day. He reports trying to walk more, but this fatigues him rapidly. He is not working [employer] He has been doing paracentesis, every other week. He reports feeling very fatigu ed after his procedures. Pt. is hopeful to regain his strength in order to get back to all recreational and work activities without limtations. Pain B thoracic region, lateral flank: Pain Intensity (Out of 10): 2 Pain Intensity Range: 0 and 4 Objective Objective: POSTURE: Pt. has pretty decent posture in stance. Slight FH posture with slight increase in thoracic kyphosis. PALPAITON: No major pain with palpation of LEs. Pt. does has some pain with palpation of Bilateral trunk. NEURO: normal throughout BLEs. Pt is able to rise on heels and toes without issues. ROM: PT. has decent ROM throughout lumbar spine and B hips. Pt. does have some tightness in his B HS and hip flexors. MMT: RLE: ankle 5/5 throughout; knee: ext 31.5#, flexion 21.9#; hip: flexion 21.3#, abd 19.7#, ext 18.1#. LLE: ankle 5/5 throughout; knee: ext 27.8#, flexion 19.3#; hip: flex 20.4#, abd 17.9#, ext 19.2#. Core strength poor+. GAIT: PT. ambulates without AD. He has increased lateral sway and fwrd trunk. Pt. does not use AD. STAIRS: reciprocal pattern with 2 HR but tries to pull self up the stairs as well. Balance/Special Test Scores Lower Extremity Functional Score: 37 TUG Test Time Seconds: 9.1 6 Minute Walk Test: Pt. was able to walk 4:57 sec 711 feet- stopped secondary to fatigue Goals Goal 1:: LTG: Pt. to be I with HEP for BLE strengthening and cardiovascular endurance. Goal Time Frame: 4-6 Weeks Goal 2:: LTG: Pt. to complete 6 MWT with distance of 1200' with RPE score of less than 10. Goal Time Frame: 4-6 Weeks Goal 3:: LTG: Pt. to have 5/5 strength throughout BLEs. Goal Time Frame: 4-6 Weeks Goal 4:: LTG: Pt. to complete walking to his barn at back without fatigue. Goal Time Frame: 4-6 Weeks Goal 5:: LTG: Pt. to resume all work related activities around the house and in community. Goal Time Frame: 4-6 Weeks Rehabilitation Potential Physical Therapy Diagnosis: Pt. has signs and symptoms consistent with generalized weakness. Pt. has increased difficulty with his endurance, general strength, gait and general ADLs. Pt. would benefit from PT to start at progressive walking program and progress an exercise routine. Rehabilitation Potential: Good Anticipated Interventions Patient/Client Instruction: Educate patient on: Condition, Plan of Care, Risk Factors and Benefits of Fitness Program For the Purpose of:: To facilitate caregiver knowledge, To improve self management, To prevent re-injury, To improve ability to perform tasks related to life management and To improve tolerance to ADL's Therapeutic Exercise to Include: Strength training, Power training, Endurance training and Agility training For the Purpose of:: To decrease pain, To increase ROM, To increase oxygenation perfusion, To improve muscle performance and motor function, To improve ability to perform ADL's, To increase tolerance to activity/condition/position, To improve performance and independence with ADL's, To decrease level of supervision to perform tasks and To improve ability of physical actions for home/community/work/leisure Text: Thank you for the opportunity to evaluate your patient. For Medicare and Medicare HMO plans, please review the plan of care and approve it. It will need to be FAXED BACK to us at [phone] for Medicare purposes. For Medicare only, by signing this I certify the plan of care. Please let me know if there are questions or concerns regarding this plan of care. Physician Signat ure: Date:
--- NOTE | 2023-05-07 17:33 | HP.PTREVAL_ITS ---
Re-Evaluation Intro: Dr. Cayla Camacho MD, It has been my pleasure to treat FIDE HODGSON Jr. over the last 5 visits for 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 and generalized weakness. Please see the progress note below for an update on the physical therapy plan of care! Subjective Subjective: Pt. reports overall doing better. He has not had to have paracentesis in ~ 1 month. Pt. is still having issues with the Objective Objective/Function: 6 MWT: 1338feet no AD. Pt. had 109 BPM HR, SpO2 91% STAIRS: Pt. able to complete with 1 HR with reciprocal pattern without issues. SpO2 92% post Walking up 5% grade x5' fatigue, but had HR 119 and SpO2 91% MMT: 5/5 throughout BLEs. I would like to continue to work on endurance training to increase his ability to walk for longer appropriate distances and promote ability to work more around the house with his chores. Plan Plan Plan: I am asking for a date extension to work on further endurance and s trengthening to increase his ability to get back to all work and recreational activities. Balance/Gait/Functional tests Balance/Special Test Scores Lower Extremity Functional Score: 45 TUG Test Time Seconds: 9.1 Tug Test: <10 sec.=free mobile 6 Minute Walk Test: 1338feet no AD, normal 1830- 2205 feet Goals Goals Goal 1:: LTG: Pt. to be I with HEP for BLE strengthening and cardiovascular endurance. Goal Time Frame: 4-6 Weeks Goal 2:: LTG: Pt. to complete 6 MWT with distance of 1200' with RPE score of less than 10. Goal Time Frame: 4-6 Weeks Goal Progress: Progressing Goal 3:: LTG: Pt. to have 5/5 strength throughout BLEs. Goal Time Frame: 4-6 Weeks Goal Progress: Goal Met Goal 4:: LTG: Pt. to complete walking to his barn at back without fatigue. Goal Time Frame: 4-6 Weeks Goal Progress: Progressing Goal 5:: LTG: Pt. to resume all work related activities around the house and in community. Goal Time Frame: 4-6 Weeks Goal Progress: Progressing Anticipated Interventions Anticipated Interventions Patient/Client Instruction: Educate patient on: Condition, Plan of Care, Risk Factors and Benefits of Fitness Program For the Purpose of:: To facilitate caregiver knowledge, To improve self management, To prevent re-injury, To improve ability to perform tasks related to life management and To improve tolerance to ADL's Therapeutic Exercise to Include: Strength training, Power training, Endurance training and Agility training For the Purpose of:: To decrease pain, To increase ROM, To increase oxygenation perfusion, To improve muscle performance and motor function, To improve ability to perform ADL's, To increase tolerance to activity/condition/position, To improve performance and independence with ADL's, To decrease level of supervision to perform tasks and To improve ability of physical actions for home/community/work/leisure Re-Evaluation Ending Re-evaluation ending: Please do not hesitate to contact me at [phone] by phone or if you have questions or concerns regarding this new plan of care! Sincerely, AMANDA BrionesT
== END 2023-07-01 19:00 | disposition home or self-care (01) ==
LOC: PT 08:00
PROVIDERS: PCP Internal Medicine; Referring Provider Internal Medicine; Visit Provider Internal Medicine
DX: K75.81 Nonalcoholic steatohepatitis (NASH) (principal); K74.60 Unspecified cirrhosis of liver; R53.1 Weakness
CPT/HCPCS: 97110; 97161; 97164

== ENCOUNTER → 2023-07-07 | Outpatient (CLI) | payer MEDICARE, SELFPAY ==
--- NOTE | 2023-07-07 16:25 | STRESSREP ---
Stress Test Report Exercise stress test. 58-year-old man for preoperative evaluation Stress protocol: Resting EKG demonstrates atrial fibrillation with a rate of 106 bpm resting blood pressure is 118/70 mmHg. The patient exercised according to the regular Roland protocol for a total duration of 6 minutes attaining a maximum heart rate of 179 bpm which was 110 of maximum predicted heart rate; the maximum workload was 7 metabolic equivalents. At rest there were no ST or T wave changes noted to suggest ischemia and at peak exercise upsloping ST changes only were noted which did not meet the criteria for ischemia. No clinical angina was noted the test was terminated due to the target heart rate being achieved/fatigue. The peak blood pressure was 160/70 mmHg. Rate-pressure product was 26,500. The patient maintained atrial fibrillation throughout the exercise. With no chest pain noted. Conclusion: Stress test with no EKG criteria for ischemia at a moderate workload. Atrial fibrillation present.
== END | disposition home or self-care (01) ==
LOC: CVS 09:54
PROVIDERS: PCP Internal Medicine; Referring Provider Internal Medicine Cardiovascular Disease; Visit Provider Internal Medicine Cardiovascular Disease
DX: Z01.810 Encounter for preprocedural cardiovascular examination (principal); K74.60 Unspecified cirrhosis of liver; K75.81 Nonalcoholic steatohepatitis (NASH); F17.200 Nicotine dependence, unspecified, uncomplicated; Z86.79 Personal history of other diseases of the circulatory system
CPT/HCPCS: 93017

== ENCOUNTER → 2023-07-23 | Outpatient (CLI) | payer MEDICARE, SELFPAY ==
--- NOTE | 2023-07-23 07:39 | CT_ITS ---
INDICATION: CIRRHOSIS OF LIVER EXAMINATION: CT ABDOMEN WITH IV CONTRAST CT Abdomen W/ Contrast Injection TECHNIQUE: Helically acquired images were obtained of the abdomen following IV contrast. A radiation dose optimization technique was used for this scan. IV Contrast dosage and agent: 100 cc of Isovue-370 Oral contrast: None. RADIATION DOSAGE (If Supplied By Facility): CTDIvol = ( 15.06 ) mGy, DLP = ( 787.88 ) mGycm COMPARISON: No relevant prior comparison study available FINDINGS: LOWER CHEST: Mild atelectatic changes or scarring in the left lower lobe. No cardiomegaly or pericardial effusion. LIVER: Somewhat irregular liver suggestive of cirrhosis. TIPS is seen. No focal mass. GALLBLADDER AND BILIARY TREE: No calcified gallstones. No gallbladder distension or wall edema. No intra- or extrahepatic biliary ductal dilation. PANCREAS: No focal cystic or solid mass. SPLEEN: Splenomegaly. The spleen measures about 18 cm in length. ADRENAL GLANDS: No nodules. KIDNEYS AND URETERS: Normal renal size and position. No hydronephrosis. PERITONEUM: Mild ascites around the liver and spleen. No other fluid collection. BOWEL: The appendix is not identified. Fecal retention. Nonspecific fluid-filled small bowel loops. No evidence of bowel obstruction. LYMPH NODES: No enlarged mesenteric or retroperitoneal lymph nodes. VESSELS: Atherosclerotic calcifications of the abdominal aorta. Collateral veins in the gastroesophageal junction, splenic hilum with recanalization of the umbilical vein consistent with portal venous hypertension. ABDOMINAL WALL: No discrete abdominal wall hernia. BONES: No lytic or blastic abnormality. CT/Abdomen WITH IV Contrast IMPRESSION: 1. Cirrhosis of the liver with stigmata of portal venous hypertension including splenomegaly, varices and mild ascites. 2. TIPS seen in place. 3. No focal acute inflammatory process. Electronically Signed: Jorgito Navarrete MD at 8:17 EST ,
[2023-07-23 08:12] LABS: CREATININE FINGERSTICK < 1.0 mg/dL (0.70-1.30); EGFR FINGERSTICK > 60.0000 mL/min (>60)
== END | disposition home or self-care (01) ==
PROVIDERS: PCP Internal Medicine; Referring Provider Internal Medicine Gastroenterology; Visit Provider Internal Medicine Gastroenterology
DX: K74.60 Unspecified cirrhosis of liver (principal)
CPT/HCPCS: 74160; Q9967

== ENCOUNTER → 2024-01-02 | Outpatient (CLI) | payer MEDICARE, SELFPAY ==
[2024-01-02 12:42] LABS: International Normalized Ratio 1.3
[2024-01-02 12:45] LABS: Absolute Lymphocyte Count 1.08 X10^3/uL (0.83-4.51); Absolute Neutrophil Count 2.9 X10^3/uL (2.0-7.7); Basophil# 0.05 X10^3/uL; Basophil% 1.1 % (0-1); Eosinophil# 0.12 X10^3/uL; Eosinophils% 2.6 % (0-5); Erythrocyte Sedimentation Rate 2 mm/hr (0-20); Hemoglobin 12.6 g/dL (13.0-16.5); Lymphocyte # 1.08 X10^3/ul (0.83-4.51); Lymphocyte % 23.5 % (19-41); Mean Corp Hgb Conc 32.3 g/dL (32-36); Mean Corpuscular Hgb 27.1 pg (27.0-32.0); Mean Corpuscular Volume 83.9 fL (80-94); Mean Platelet Vol. 12.5 fl (6.2-12.0); Monocyte% 8.7 % (0-10); NRBC Flagged by Analyzer 0 % (0-5); Neutrophil # 2.93 X10^3/uL (2.7-7.7); Neutrophil % 63.9 % (47-70); POSITIVE COUNT YES; Platelet Count 82 K/mm3 (150-450); RBC Distribution Width CV 14.8 % (11.6-14.6); RBC Distribution Width SD 45.1 fl (35.1-43.9); Red Blood Count 4.65 M/mm3 (4.6-6.2); White Blood Count 4.6 K/mm3 (4.4-11.0)
[2024-01-02 12:47] LABS: Differential Indicated SCAN CRITERIA MET
[2024-01-02 12:53] LABS: AST(SGOT) 26 U/L (15-37); Alanine Aminotransfer ALT/SGPT 31 U/L (16-61); Albumin, Serum 3.2 g/dL (3.2-5.0); Alkaline Phosphatase 81 U/L (45-117); Anion Gap 6 (5-15); BUN 14 mg/dL (7-18); BUN/Creat Ratio 18.2 RATIO (10-20); Calcium,Total 8.9 mg/dL (8.5-10.1); Chloride 108 mmol/L (98-107); Cholesterol 178 mg/dL (200); Creatinine, Serum 0.77 mg/dL (0.70-1.30); EST Glomerular Filtration Rate 110 mL/min (>60); Est Glom Filt Rate - Afr Amer 133 mL/min (>60); Globulin 3.3 g/dL (2.2-4.2); Glucose 123 mg/dL (74-106); High Density Lipoprotein 71 mg/dL; Potassium 4.2 mmol/L (3.5-5.1); Protein, Total 6.5 g/dL (6.4-8.2); Sodium Level 138 mmol/L (136-145); Triglycerides 47 mg/dL; Very Low Density Lipoprotein 9 mg/dL (5-40)
[2024-01-02 13:01] LABS: Microalbumin,Random Urine < 5.0 mg/L (NO RANGE EST.)
[2024-01-02 13:07] LABS: CRP < 2.90 mg/L (0.0-3.0); Free T3 2.5 pg/mL (2.18-3.98); LDH 178 U/L (87-241); T4 Free Direct 1.24 ng/dL (0.76-1.46); Thyroid Stim Hormone (TSH) 2.35 uIU/mL (0.358-3.74)
[2024-01-02 13:26] LABS: Platelet Estimate MOD DEC (ADEQ)
[2024-01-02 14:21] LABS: Vitamin B12 1038 pg/mL (211-911)
[2024-01-06 13:07] LABS: Vitamin D 1,25-Dihydroxy 33.3 pg/mL (24.8-81.5)
[2024-01-07 14:10] LABS: AFP, Tumor Marker < 1.8 ng/mL (0.0-8.4); Albumin 3.3 g/dL (2.9-4.4); Alpha-1-Globulins 0.2 g/dL (0.0-0.4); Alpha-2-Globulins 0.5 g/dL (0.4-1.0); Immunoglobulin A 352 mg/dL (90-386); Immunoglobulin E 51 IU/mL (6-495); Immunoglobulin G 970 mg/dL (603-1613); Immunoglobulin M 108 mg/dL (20-172)
== END | disposition home or self-care (01) ==
LOC: BIMLAB 08:01
PROVIDERS: Internal Medicine Gastroenterology; PCP Internal Medicine; Visit Provider Internal Medicine
DX: I48.91 Unspecified atrial fibrillation (principal); K74.60 Unspecified cirrhosis of liver; E11.9 Type 2 diabetes mellitus without complications; K75.81 Nonalcoholic steatohepatitis (NASH); F17.200 Nicotine dependence, unspecified, uncomplicated; R18.8 Other ascites; M79.7 Fibromyalgia
CPT/HCPCS: 80053; 80061; 82043; 82105; 82140; 82570; 82607; 82652; 82746; 82784; 82785; 83615; 84165; 84439; 84443; 84481; 85025; 85610; 85652; 86140; 86334

== ENCOUNTER → 2024-03-18 | Outpatient (CLI) | payer MEDICARE, SELFPAY ==
[2024-03-18 11:32] LABS: Bacteria 0 SEEN /hpf (None Seen); Mucous, Urine 0 SEEN /hpf (<or=2+); Red Blood Cells-Urine 0 SEEN /hpf (0-5); Squamous Epithelial Cells - UA 0 SEEN /hpf (0-5)
[2024-03-18 12:08] LABS: Color, Urine Yellow (Yellow); Glucose, Dipstick 100 mg/dl (Normal); Ketone-Dipstick 5 mg/dl (Negative); Leukocyte Esterase-Dipstick 25 /ul (Negative); Nitrite-Dipstick Negative (Negative); Occult Blood-Urine Negative /ul (Negative); Protein-Dipstick 30 mg/dl (Negative); Urine Bilirubin Dipstick Negative (Negative); Urine Clarity Clear (Clear); Urine Urobilinogen 1 mg/dl (Normal)
[2024-03-18 12:09] LABS: Absolute Lymphocyte Count 0.89 X10^3/uL (0.83-4.51); Basophil# 0.03 X10^3/uL; Basophil% 0.7 % (0-1); Eosinophil# 0.07 X10^3/uL; Eosinophils% 1.6 % (0-5); Hematocrit 39.9 % (40-54); Lymphocyte # 0.89 X10^3/ul (0.83-4.51); Lymphocyte % 20.6 % (19-41); Mean Corp Hgb Conc 32.6 g/dL (32-36); Mean Corpuscular Hgb 27.3 pg (27.0-32.0); Mean Corpuscular Volume 83.6 fL (80-94); Monocyte# 0.32 X10^3/uL; Monocyte% 7.4 % (0-10); NRBC Flagged by Analyzer 0 % (0-5); Neutrophil % 69.5 % (47-70); POSITIVE COUNT YES; Platelet Count 69 K/mm3 (150-450); RBC Distribution Width CV 15.1 % (11.6-14.6); RBC Distribution Width SD 46.3 fl (35.1-43.9); Red Blood Count 4.77 M/mm3 (4.6-6.2); White Blood Count 4.3 K/mm3 (4.4-11.0)
[2024-03-18 12:15] LABS: International Normalized Ratio 1.2; Prothrombin Time (Protime)PT. 14.9 SECONDS (11.7-14.9)
[2024-03-18 12:18] LABS: Erythrocyte Sedimentation Rate 3 mm/hr (0-20)
[2024-03-18 12:19] LABS: White Blood Cells 0-5 SEEN /hpf (0-5)
[2024-03-18 12:57] LABS: AST(SGOT) 26 U/L (15-37); Alanine Aminotransfer ALT/SGPT 25 U/L (16-61); Albumin, Serum 3.3 g/dL (3.2-5.0); Alkaline Phosphatase 86 U/L (45-117); Anion Gap 9 (5-15); BUN 16 mg/dL (7-18); BUN/Creat Ratio 15.8 RATIO (10-20); CPK Total, Creatine Kinase 179 U/L (39-308); CRP < 2.90 mg/L (0.0-3.0); Calcium,Total 8.7 mg/dL (8.5-10.1); Chloride 106 mmol/L (98-107); Creatinine, Serum 1.01 mg/dL (0.70-1.30); EST Glomerular Filtration Rate 80 mL/min (>60); Est Glom Filt Rate - Afr Amer 97 mL/min (>60); Ferritin 10 ng/mL (26-388); Globulin 3.2 g/dL (2.2-4.2); Glucose 240 mg/dL (74-106); Iron 89 ug/dL (65-175); LDH 190 U/L (87-241); Magnesium 1.9 mg/dL (1.6-2.6); Phosphorus 2.7 mg/dL (2.5-4.9); Potassium 4.1 mmol/L (3.5-5.1); Protein, Total 6.5 g/dL (6.4-8.2); Sodium Level 137 mmol/L (136-145)
[2024-03-18 15:46] LABS: Vitamin B12 1006 pg/mL (211-911)
[2024-03-23 11:59] LABS: Albumin 3.4 g/dL (2.9-4.4); Aldolase 5.7 U/L (3.3-10.3); Alpha-1-Globulins 0.2 g/dL (0.0-0.4); Alpha-2-Globulins 0.4 g/dL (0.4-1.0); Immunoglobulin A 362 mg/dL (90-386); Immunoglobulin G 984 mg/dL (603-1613); Immunoglobulin M 109 mg/dL (20-172); PROEL- TOTAL PROTEIN 6.1 g/dL (6.0-8.5); Transferrin 348 mg/dL (177-329)
== END | disposition home or self-care (01) ==
LOC: BIMLAB 11:14
PROVIDERS: PCP Internal Medicine; Referring Provider Internal Medicine Gastroenterology; Visit Provider Internal Medicine Gastroenterology
DX: R53.83 Other fatigue (principal); K74.60 Unspecified cirrhosis of liver; R18.8 Other ascites
CPT/HCPCS: 36415; 80053; 81001; 82085; 82105; 82140; 82550; 82607; 82728; 82746; 82784; 83540; 83615; 83735; 84100; 84165; 84466; 85025; 85610; 85652; 86140; 86334; 87086; 87088

== ENCOUNTER → 2024-05-11 | Outpatient (CLI) | payer MEDICARE, SELFPAY | END | disposition home or self-care (01) | PROVIDERS: PCP Internal Medicine; Referring Provider Nurse Practitioner Gerontology; Visit Provider Nurse Practitioner Gerontology | DX: I48.92 Unspecified atrial flutter (principal); I48.0 Paroxysmal atrial fibrillation; Z86.79 Personal history of other diseases of the circulatory system | CPT/HCPCS: 93225; 93226 ==

== ENCOUNTER 2024-08-17 08:42 | Day surgery (SDC) | payer MEDICARE, SELFPAY ==
--- NOTE | 2024-08-03 14:50 | PAT.ANESEVAL ---
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 When Was Last Pacemaker Check QUESTION #4 FULL TEXT: You/Your Family Experience fever (hyperthermia) with Anesthesia Last Oral Intake Last Oral intake: Last Oral Intake NPO since Meds taken in AM with sips of water? Meds patient instructed to take am of surgery PONV PONV - photography manager: PONV - photography manager Female No 08/03/24 12:28 HX of Motion Sickness No 08/03/24 12:28 HX of N/V After Surgery No 08/03/24 12:28 Non-Smoker Yes 08/03/24 12:28 Duration of Surgery greater No 08/03/24 12:28 than 60 minutes Number of Risk Factors 1 08/03/24 12:28 PONV Score Low Risk 08/03/24 12:28 Height & Weight Height & Weight: Anesthesia: Height & Weight Height 6 ft 2 in 07/16/24 08:37 Respiratory Assessment Respiratory Assessment - photography manager: Respiratory Tract Infection Hx - photography manager Hx Respiratory Tract Infection No 08/03/24 12:28 STOP Sleep Apnea STOP Sleep Apnea - photography manager: STOP Sleep Apnea - photography manager Hx Hypertension Yes: NO MEDS FOR YRS 08/03/24 12:28 Hx Sleep Apnea No 08/03/24 12:28 CPAP No 03/22/23 21:35 BIPAP No 03/22/23 21:35 Do you snore loudly (louder Yes 08/03/24 12:28 than talking or can be heard Do you often feel tired/ Yes 08/03/24 12:28 fatigued/ sleepy during daytime? Has anyone observed you stop No 08/03/24 12:28 breathing during sleep? STOP Results Positive 08/03/24 12:28 QUESTION #5 FULL TEXT : Do you snore loudly (louder than talking or can be heard through closed doors)? 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 Specify any problems Hx of Preganancy in last 3 N/A 08/03/24 12:28 Months Nurse Filling Out Transfusion DSCHRIBER 08/03/24 12:28 & Questions: Date: 08/03/24 08/03/24 12:28 Time: 12:30 08/03/24 12:28 Patient unable to answer at this time (ie. confused, unrespo /Reproduction History /Reproductive History - photography manager: /Reproductive Hx- photography manager Hx Now No 08/03/24 12:28 Gestational Age (in weeks): EDC: Hx Hx Para Hx Section SAB No 08/03/24 12:28 PFSH Medical History (Updated 08/03/24 @ 12:41 by Berenice Jain) Loss of hearing Wears contact lenses Depression Anxiety Alcohol use Marijuana use Migraine headache Loss of consciousness Gastric reflux Former smoker Chronic cough Shortness of breath on exertion History of edema History of echocardiogram History of stress test History of Holter monitoring Cardiology follow-up encounter History of atrial fibrillation Pain Impingement of left shoulder Arthrosis of left acromioclavicular joint Primary osteoarthritis, left shoulder Left shoulder pain Atrial flutter by electrocardiogram Ascites due to alcoholic cirrhosis Anemia due to acute blood loss History of esophageal varices Acute upper gastrointestinal bleeding Concentric left ventricular hypertrophy 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 Chronic back pain Restless leg syndrome Arthritis Stomach ulcer IBS (irritable bowel syndrome) Chronic pain Diabetes mellitus type II, controlled, with no complications Paroxysmal atrial fibrillation Home Medications ?Medication ?Instructions ?Recorded ?Last Taken ?Type Saccharomyces boulardii 250 mg 250 mg PO BID gut health 01/21/23 Unknown History capsule (Digest Probiotic (S.boulardii)) amino acids 82 gram-328 kcal/100 1 ea PO DAILY supplement 01/21/23 Unknown History gram oral powder (Complete Amino Acid Mix) parker root extract 50 mg tablet 50 mg PO BID 01/21/23 Unknown History handicap placard #1 ea 01/21/23 Unknown Rx sennosides 8.6 mg capsule (senna) 8.6 mg PO BID 04/08/23 Unknown History rifaximin 550 mg tablet (Xifaxan) 550 mg PO BID irritable bowels #60 11/13/23 Unknown Rx tabs pantoprazole 40 mg tablet,delayed 40 mg PO DAILY #30 TABLETS 05/07/24 Unknown Rx release CURALIN 2 cap PO BID DIABETES 08/03/24 Unknown History Allergy/AdvReac Type Severity Reaction Status Date / Time doxepin AdvReac Severe Itching Verified 08/03/24 12:26 lactulose AdvReac Intermediate chills Verified 08/03/24 12:26 bupropion (From Wellbutrin) AdvReac Mild Other Verified 08/03/24 12:26 pregabalin (From Lyrica) AdvReac Mild Other Verified 08/03/24 12:26 enalapril AdvReac Other Verified 08/03/24 12:26 gabapentin (From Neurontin) AdvReac Other Verified 08/03/24 12:26 niacin AdvReac Other Verified 08/03/24 12:26 polyethylene glycol 3350 AdvReac Constipatio Verified 08/03/24 12:26 (From Miralax) n Xzxfjma-MMK-BaT Reductase AdvReac Pain in Verified 08/03/24 12:26 Inhibitor (Yagriib-Pmg-Iih joints Reductase Inhibitor) Family History Sister Breast cancer Depression Osteoporosis Mother Cancer lung Father Heart disease Brother Liver disease Surgical History (Updated 08/03/24 @ 12:41 by Berenice Jain) History of carpal tunnel surgery of right wrist History of carpal tunnel surgery of left wrist History of esophagogastroduodenoscopy (EGD) H/O of nasal cauterization H/O oral surgery History of surgical procedure Social History household members: significant other current occupational status: disabled current occupation: disability due to pain Smoking Status: Former smoker quit date: 01/15/23 alcohol intake: former year quit: 2022 substance use type: does not use caffeine: Yes what type of physical activity do you participate in: walking frequency: daily do you feel safe at home: Yes Audit: Pertinent Findings Pertinent Findings EKG Perinent findings: March 22, 2023 atrial flutter with variable AV block. Stress test pertinent findings: July 07, 2023. No EKG criteria for ischemia at moderate workload. Patient maintained atrial fibrillation throughout the exercise. Echo (EF%) pertinent findings: March 24, 2023 ejection fraction is 60 to 65%. No significant valvular disease. Right ventricular systolic pressure is 34 mmHg. Consult pertinent findings: March 05, 2023. Dr. Garcia. 1. Paroxysmal atrial fibrillation -patient is asymptomatic. Plan for echo to assess ventricular function. Stress test to assess myocardial perfusion. Additional pertinent findings: Holter monitor was done on May 11, 2024. Patient was in atrial fibrillation the entire time of the 48-hour Holter. Occasional PVCs. Recommendation Anesthesia Recommendation Anesthesia recommendation: OPTIMIZED for anesthesia
[2024-08-17] VITALS (8 sets, daily range): BP systolic 101–119; BP diastolic 60–75; PULSE 74–82; RESP 12–16; TEMP 36.2–36.4; O2SAT 96–100; BMI 32.3
[2024-08-17 09:45] LABS: Bedside Glucose 132 mg/dL (74-106)
--- NOTE | 2024-08-17 10:03 | PCM.PRE.AN2 ---
ASA Classification* ASA Classification ASA Classification: 3 Assessment & Plan Anesthesia* Anesthesia Assessment Anesthesia Assessment: Discussed sedation and/or anesthesia options, risks, benefits, and alternatives with patient/parents/legal guardian/POA. Questions invited. The patient/parents/legal guardian/POA seems to understand and agrees to proceed with anesthesia plan. Reviewed the physical assessment, medical history, allergy history and patient home medications list prior to surgery/procedure/anesthetic and documented any changes. Performed airway and anesthesia risk assessments. Anesthesia Type Anesthesia Type: MAC History Source History Obtained from:: Patient and Chart Anesthesia Focused Assessment* Temperature: 97.5 F Pulse Rate: 82 Blood Pressure: 119/75 Respiratory Rate: 16 Pulse Ox: 99 Oxygen Delivery Method: Room Air Airway Assessment Mouth opens: >3 cm Mallampati Score: III Teeth Condition: Chipped/Broken (Multiple chipped and broken teeth.) Neck Range of motion (ROM): Full ROM Focused Labs Anesthesia Preop lab: CBC WBC 4.3 K/mm3 (4.4-11.0) L 03/18/24 11:15 RBC 4.77 M/mm3 (4.6-6.2) 03/18/24 11:15 Hgb 13.0 g/dL (13.0-16.5) 03/18/24 11:15 Hct 39.9 % (40-54) L 03/18/24 11:15 Plt Count 69 K/mm3 (150-450) L 03/18/24 11:15 CHEMISTRY Potassium 4.1 mmol/L (3.5-5.1) 03/18/24 11:15 Sodium 137 mmol/L (136-145) 03/18/24 11:15 Magnesium 1.9 mg/dL (1.6-2.6) 03/18/24 11:15 Phosphorus 2.7 mg/dL (2.5-4.9) 03/18/24 11:15 BUN 16 mg/dL (7-18) 03/18/24 11:15 Creatinine 1.01 mg/dL (0.70-1.30) 03/18/24 11:15 Glucose 240 mg/dL (74-106) H 03/18/24 11:15 POC Glucose 132 mg/dL (74-106) H 08/17/24 09:27 TSH 2.35 uIU/mL (0.358-3.74) 01/02/24 08:03 COAG PT 14.9 SECONDS (11.7-14.9) 03/18/24 11:15 Pre-Assessment Diagnosis/Proposed Procedure Planned Operative Procedure(s): RIGHT MIDDLE FINGER A1 KARINE RELEASE Anesthesia History 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 When Was Last Pacemaker Check QUESTION #4 FULL TEXT: You/Your Family Experience fever (hyperthermia) with Anesthesia Last Oral Intake Last Oral intake: Last Oral Intake NPO since 00:00 08/17/24 09:25 Meds taken in AM with sips of Yes 08/17/24 09:25 water? Meds patient instructed to pantoprazole 08/17/24 09:25 take am of surgery xifaxan Any additional information?: Yes Meds taken in AM with sips of water?: Yes PONV PONV - interior design principal: PONV - interior design principal Female No 08/03/24 12:28 HX of Motion Sickness No 08/03/24 12:28 HX of N/V After Surgery No 08/03/24 12:28 Non-Smoker Yes 08/03/24 12:28 Duration of Surgery greater No 08/03/24 12:28 than 60 minutes Number of Risk Factors 1 08/03/24 12:28 PONV Score Low Risk 08/03/24 12:28 Height & Weight Height & Weight: Anesthesia: Height & Weight Height 6 ft 2 in 08/17/24 09:25 Weight: 114.5 kg 08/17/24 09:25 Body Mass Index (BMI) 32.3 08/17/24 09:25 Respiratory Assessment Respiratory Assessment - interior design principal: Respiratory Tract Infection Hx - interior design principal Hx Respiratory Tract Infection No 08/03/24 12:28 STOP Sleep Apnea STOP Sleep Apnea - interior design principal: STOP Sleep Apnea - interior design principal Hx Hypertension Yes: NO MEDS FOR YRS 08/03/24 12:28 Hx Sleep Apnea No 08/03/24 12:28 CPAP No 03/22/23 21:35 BIPAP No 03/22/23 21:35 Do you snore loudly (louder Yes 08/03/24 12:28 than talking or can be heard Do you often feel tired/ Yes 08/03/24 12:28 fatigued/ sleepy during daytime? Has anyone observed you stop No 08/03/24 12:28 breathing during sleep? STOP Results Positive 08/03/24 12:28 QUESTION #5 FULL TEXT : Do you snore loudly (louder than talking or can be heard through closed doors)? 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 Specify any problems Hx of Preganancy in last 3 N/A 08/03/24 12:28 Months Nurse Filling Out Transfusion DSCHRIBER 08/03/24 12:28 & Questions: Date: 08/03/24 08/03/24 12:28 Time: 12:30 08/03/24 12:28 Patient unable to answer at this time (ie. confused, unrespo /Reproduction History /Reproductive History - interior design principal: /Reproductive Hx- interior design principal Hx Now No 08/03/24 12:28 Gestational Age (in weeks): EDC: Hx Hx Para Hx Section SAB No 08/03/24 12:28 Active Medications Active Medications: Current Medications Generic Name Dose Route Start Last Admin Trade Name Freq PRN Reason Stop Dose Admin Cefazolin Sodium 2 gm/ N/A 20 mls @ 400 mls/hr 08/17/24 14:45 IV 08/17/24 14:47 X1 [facility] Medical History Loss of hearing Wears contact lenses Depression Anxiety Alcohol use Marijuana use Migraine headache Loss of consciousness Gastric reflux Former smoker Chronic cough Shortness of breath on exertion History of edema History of echocardiogram History of stress test History of Holter monitoring Cardiology follow-up encounter History of atrial fibrillation Pain Impingement of left shoulder Arthrosis of left acromioclavicular joint Primary osteoarthritis, left shoulder Left shoulder pain Atrial flutter by electrocardiogram Ascites due to alcoholic cirrhosis Anemia due to acute blood loss History of esophageal varices Acute upper gastrointestinal bleeding Concentric left ventricular hypertrophy 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 Chronic back pain Restless leg syndrome Arthritis Stomach ulcer IBS (irritable bowel syndrome) Chronic pain Diabetes mellitus type II, controlled, with no complications Paroxysmal atrial fibrillation Home Medications ?Medication ?Instructions ?Recorded ?Last Taken ?Type Saccharomyces boulardii 250 mg 250 mg PO BID gut health 01/21/23 08/16/24 History capsule (Digest Probiotic (S.boulardii)) amino acids 82 gram-328 kcal/100 1 ea PO DAILY supplement 01/21/23 08/16/24 History gram oral powder (Complete Amino Acid Mix) parker root extract 50 mg tablet 50 mg PO BID 01/21/23 08/16/24 History handicap placard #1 ea 01/21/23 Unknown Rx sennosides 8.6 mg capsule (senna) 8.6 mg PO BID 04/08/23 08/16/24 History rifaximin 550 mg tablet (Xifaxan) 550 mg PO BID irritable bowels #60 11/13/23 08/17/24 Rx tabs pantoprazole 40 mg tablet,delayed 40 mg PO DAILY #30 TABLETS 05/07/24 08/17/24 Rx release CURALIN 2 cap PO BID DIABETES 08/03/24 08/16/24 History Allergy/AdvReac Type Severity Reaction Status Date / Time doxepin AdvReac Severe Itching Verified 08/03/24 12:26 lactulose AdvReac Intermediate chills Verified 08/03/24 12:26 bupropion (From Wellbutrin) AdvReac Mild Other Verified 08/03/24 12:26 pregabalin (From Lyrica) AdvReac Mild Other Verified 08/03/24 12:26 enalapril AdvReac Other Verified 08/03/24 12:26 gabapentin (From Neurontin) AdvReac Other Verified 08/03/24 12:26 niacin AdvReac Other Verified 08/03/24 12:26 polyethylene glycol 3350 AdvReac Constipatio Verified 08/03/24 12:26 (From Miralax) n Pbvbasv-KOZ-XvW Reductase AdvReac Pain in Verified 08/03/24 12:26 Inhibitor (Xfeupiq-Wwg-Wyr joints Reductase Inhibitor) Family History Sister Breast cancer Depression Osteoporosis Mother Cancer lung Father Heart disease Brother Liver disease Surgical History (Updated 08/17/24 @ 10:[address] Morales Ding MD) S/P TIPS (transjugular intrahepatic portosystemic shunt) History of carpal tunnel surgery of right wrist History of carpal tunnel surgery of left wrist History of esophagogastroduodenoscopy (EGD) H/O of nasal cauterization H/O oral surgery History of surgical procedure Social History household members: significant other current occupational status: disabled current occupation: disability due to pain Smoking Status: Former smoker quit date: 01/15/23 alcohol intake: former year quit: 2022 substance use type: does not use caffeine: Yes what type of physical activity do you participate in: walking frequency: daily do you feel safe at home: Yes Review of Systems (Anesthesia) ROS Narrative System reviewed and no additional complaints, except as documented.
--- NOTE | 2024-08-17 11:16 | PCM.HP.BLA ---
History and Physical Date of Admission: 08/17/24 [facility] [address] [place] [address] OFFICE VISIT Date of Service: 07/16/24 MR#: [id number] Acct: [id number] Name: FIDE HODGSON Jr. Rep #: [id number] : 1965 Provider: Dr. Enmanuel Alberto DO Age/Sex: 59/M Location: [facility] [place].[facility] Status: Signed Intake Vital Signs 06/08/2407:55 07/16/2408:37 Height 6 ft 2 in 6 ft 2 in Weight: 246 lb 253 lb 2 oz BMI 31.6 32.5 BP 122/68 H Blood Pressure Location Lt brachial Position Sitting Respiration 16 Pulse 92 Pulse Source Monitor Temp 98.4 F Temp Source Temporal Pulse Oximetry (%) 98 Oxygen Delivery Method room air Intake Visit Reasons: RIGHT HAND Accompanied by: Self Allergies doxepin Adverse Reaction (Severe, Verified 07/16/24 08:38) Itchinglactulose Adverse Reaction (Intermediate, Verified 07/16/24 08:38) chillsbupropion (From Wellbutrin) Adverse Reaction (Mild, Verified 07/16/24 08:38) Otherpregabalin (From Lyrica) Adverse Reaction (Mild, Verified 07/16/24 08:38) Otherenalapril Adverse Reaction (Verified 07/16/24 08:38) Othergabapentin (From Neurontin) Adverse Reaction (Verified 07/16/24 08:38) Otherniacin Adverse Reaction (Verified 07/16/24 08:38) Otherpolyethylene glycol 3350 (From Miralax) Adverse Reaction (Verified 07/16/24 08:38) WxzkmnamxgriUxktmqn-TSX-UoC Reductase Inhibitor (Bdeocni-Ckl-Cxd Reductase Inhibitor) Adverse Reaction (Verified 07/16/24 08:38) Pain in joints Medications ?Medication ?Instructions ?Recorded ?Confirmed ?Type Saccharomyces boulardii 250 mg 250 mg PO BID gut health 01/21/23 07/16/24 History capsule (Digest Probiotic (S.boulardii)) amino acids 82 gram-328 kcal/100 1 ea PO DAILY supplement 01/21/23 07/16/24 History gram oral powder (Complete Amino Acid Mix) parker root extract 50 mg tablet 50 mg PO BID 01/21/23 07/16/24 History handicap placard #1 ea 01/21/23 07/16/24 Rx sennosides 8.6 mg capsule (senna) 8.6 mg PO BID 04/08/23 07/16/24 History furosemide 20 mg tablet 10 mg PO DAILY PRN 06/05/23 07/16/24 History rifaximin 550 mg tablet (Xifaxan) 550 mg PO BID irritable bowels #60 11/13/23 07/16/24 Rx tabs pantoprazole 40 mg tablet,delayed 40 mg PO DAILY #30 TABLETS 05/07/24 07/16/24 Rx release metoclopramide HCl 5 mg tablet 5 mg PO TID #90 tabs 05/19/24 07/16/24 Rx PFSH Medical History Atrial flutter by electrocardiogram Ascites due to alcoholic cirrhosis Anemia due to acute blood loss History of esophageal varices Acute upper gastrointestinal bleeding Concentric left ventricular hypertrophy 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 Chronic back pain Restless leg syndrome Arthritis Stomach ulcer Carpal tunnel syndrome IBS (irritable bowel syndrome) Chronic pain Diabetes mellitus type II, controlled, with no complications Paroxysmal atrial fibrillation Surgical History H/O of nasal cauterization H/O oral surgery History of surgical procedure Family History Sister Breast cancer Depression OsteoporosisMother Cancer lungFather Heart diseaseBrother Liver disease Social History household members: significant other current occupational status: disabled current occupation: disability due to pain Smoking Status: Former smoker quit date: 01/15/23 alcohol intake: former year quit: 2022 substance use type: does not use caffeine: Yes what type of physical activity do you participate in: walking frequency: daily do you feel safe at home: Yes HPI RIGHT HAND Details: This documentation accurately reflects the service provided and the decisions made by me, Dr. Enmanuel Alberto, DO 07/16/24 0746. Part of today?s visit was documented by Joanna MENDEZ, acting as scribe. FIDE HODGSON is a new 59 year old M with multiple medical comorbidities significant but not limited to atrial fibrillation/flutter, cirrhosis secondary to MARTINEZ, fibromyalgia, former smoker quit 01/15/2023 current chewing tobacco, ascites secondary to alcoholic cirrhosis, history of GI bleeding, left ventricular hypertrophy, chronic back pain, stomach ulcer, chronic pain, diabetes mellitus type 2 currently disabled here today for his right middle finger trigger finger. He states that the finger is very sore. He states it started 4-5 years ago but back then he was able to massage it and get it to release but now recently he states it has been multiple times a day locking up. He states that he has constant pain in the finger. He states that Rambo Schmidt PA-C did try an injection for 1.5 months. He had the injection 6 months ago. The only issue he had with the injection is that it raised his blood sugar. 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 He is unable to take anything for pain due to his cirrhosis of his liver. He states that he quit chewing tobacco over a year ago. He has had multiple fractures in the hand in the past. Ortho Exam General General: Yes no acute distress Neurologic: Yes alert and Yes oriented x3 Psychologic: Yes reasonable and appropriate Right Wrist/Hand Skin/Wound: No Swelling, No Ecchymosis, Yes nail intact and Yes capillary refill normal A1 brayan trigger: Yes WRIST: tender and hypertrophied a1 brayan There is palpable triggering that is severely painful -8 extension of pip joint Left Wrist/Hand Skin/Wound: No Swelling and No Ecchymosis Head: Normocephalic Atraumatic Chest: symmetrical rise, non-labored breathing, no audible wheeze Abdomen: no guarding, non-rigid Supplemental Info 07/16/2024 x-ray right middle finger: No acute findings Coding Level of Care Code Off vis,new,level 3 Diagnoses Trigger finger, right middle finger M65.331 Assessment and Plan Assessment and Plan (1) Trigger finger, right middle finger: Status: Acute Orders: Orders Finger(s) Min 2 Views Today M65.331 - Trigger finger, right middle finger Plan Patient is here today for right middle finger trigger finger. Patient does have triggering of the finger on exam. I spoke with patient that his treatment options are do nothing, injections, or A1 brayan release. He would like to proceed with A1 brayan release as he is already had a steroid injection which only lasted about a month and he has severely painful triggering of the digit. Risk benefits and alternatives of the surgery were reviewed including risk of bleeding infection nerve artery tissue damage need for further surgery continued pain hypersensitivity and postoperative restrictions and recurrence of triggering. I explained the importance of keep the incision clean postoperatively to avoid risk of complication. Due to his multiple medical comorbidities he will need medical clearance for this procedure tentative surgery date 08/17/2024. 07/16/24 0910 <Electronically signed by Enmanuel Alberto DO> Date Enmanuel Alberto DO Cosigner Signature: Date (if applicable) CC: ~ I have examined the patient and the H&P has been reviewed. There are no clinical changes since date of exam.
[2024-08-17] MEDS: Cefazolin 2 GM in Syringe IV (11:18)
[2024-08-17] MEDS: Lidocaine 1% /Epi 1:100 (20ml) 20 ML Vial (11:50)
--- NOTE | 2024-08-17 11:57 | PCM.OPRPT ---
Operative Report (Standard) Operative Information Date of Procedure: 08/17/24 Pre-Operative Diagnosis: Right middle trigger finger Post-Operative Diagnosis: Same Surgery/Procedure Performed: A1 brayan release air hole driller: Yes Manager Web Application: Edu Schmidt Tasks completed by international first officer: Opening & closing Type of Anesthesia: Local and MAC RN Documented Start/Stop Times: Operation Date: 08/17/24 10:45 Case Time Into Pre-Op 08/17/24 08:57 Out of Pre-Op 08/17/24 11:16 Anesthesia Start 08/17/24 11:18 Into Room 08/17/24 11:18 Procedure Start 08/17/24 11:37 Procedure End 08/17/24 11:50 Anesthesia End 08/17/24 11:56 Out of Room 08/17/24 11:56 Procedure Start Time: 11:37 Procedure Stop Time: 11:50 Select all DRAINS/GRAFTS/IMPLANTS that apply: None Estimated Blood Loss: 1 Specimen collected: No Description of surgery: Preoperative diagnosis; right middle digit trigger finger Postoperative diagnosis; same Procedure: Right middle digit A1 brayan release Anesthesia: Local with MAC Tourniquet time; 10 minutes 250 mm Hg Complications: None Indication for procedure; This is a 59-year-old male with symptoms consistent with trigger finger. Risks benefits and alternatives were reviewed including risks of bleeding infection nerve tendon tissue damage need for further surgery and continued pain and symptoms, hypersensitivity to scar/incision and recurrence. Procedure; The patient was met in the preoperative holding area the operative extremity was identified by both patient and physician and was marked the patient was met by anesthesia and brought back to the operating room and transferred to the operating table in the supine position. Aanesthesia was started. A well-padded tourniquet was placed on the operative upper extremity. The patient was prepped and draped in the usual sterile fashion. A timeout was called to ensure the proper patient procedure and extremity were being contemplated. 0.5 percent Marcaine was injected into the incisional area. Esmarch was used tourniquet was inflated. 15 blade scalpel was used to make a longitudinal incision directly over the A1 brayan was carried down through the subcutaneous tissue Radha retractors placed radial and ulnar protecting the digital nerves and a Ragnell retractor was used at the apex of the incision under direct visualization a deep blade scalpel was used to release the A1 brayan. The wound was thoroughly irrigated and closed with 4-0 nylon vertical mattress edges. Dressing was applied in the form of Xeroform 4 x 4 web roll and an Rafael wrap. Patient tolerated the procedure well was brought back to the PACU in stable condition. Surgical Findings: Hypertrophied A1 brayan Complications Complications: No
--- NOTE | 2024-08-17 11:59 | EX.PCM.DISCH ---
Discharge Instructions Diet Discharge Diet: No restrictions Dressing / Incision Call your doctor if you observe: Shortness of breath and Chest pain Additional Dressing/Incision Instructions:: Ice and elevate operative extremity next 72 hours. Keep dressing on clean and dry for 48 hours then may remove and allow warm soapy water to rinse over incision but do not submerge until sutures are out. Then apply bandaid over incision and change daily. encourage finger range of motion. Not lift more than 1/2 pound. Minimize narcotic use only as needed and directed, may use OTC NSAID and Tylenol to supplement/substitute for pain control. Follow Up Care Please Follow Up With: Enmanuel Alberto DO When: 2 weeks Test Results: Test results from this visit will be discussed in further detail at your follow-up appointment, if applicable. Discharge Plan Admission Primary Reason for Your Visit: Right middle finger A1 brayan release Attending Provider: Enmanuel Alberto Primary Care Provider: Cayla Camacho Instructions Print Language: Citizen Of [place] Discharge Orders/Prescriptions Prescriptions: New oxycodone 5 mg tablet 5 - 10 mg PO Q6H PRN (Reason: pain) 3 Days Qty: 7 0RF Continued Complete Amino Acid Mix [id number] gram-kcal/100 g powder 1 ea PO DAILY Saccharomyces boulardii [Digest Probiotic (S.boulardii)] 250 mg capsule 250 mg PO BID parker root extract 50 mg tablet 50 mg PO BID (DME) handicap placard See Rx Instructions .ROUTE .MEDSUPPLY Qty: 1 0RF Rx Instructions: Length of time: 5 years Dx: Impaired physical mobility z74.09 senna 8.6 mg capsule 8.6 mg PO BID CURALIN 2 cap PO BID Xifaxan 550 mg tablet 550 mg PO BID Qty: 60 11RF pantoprazole 40 mg tablet,delayed release (DR/EC) 40 mg PO DAILY Qty: 30 11RF Referrals / Follow Up: Cayla Camacho MD [Primary Care Provider] - Disposition Disposition (needs filled in before D/C Order can be placed): Home, Self Care
--- NOTE | 2024-08-17 11:59 | PCM.POST.ANE ---
Anesthesia: Postop Eval I Current Vital Signs Temperature: 97.1 F Pulse Rate: 74 Blood Pressure: 111/67 Respiratory Rate: 12 Pulse Ox: 98 Oxygen Delivery Method: Room Air Assessment Airway patent: Yes Spontaneous unlabored respirations: Yes Mental status: Awake nausea: No Vomiting: No Anesthesia Complication: No Fluid Hydration Crystalloid volume administer (ml): 500 Total IV fluid infused: 500 Progress Note Anesthesia document: Postop Eval 1 completed: Yes
--- NOTE | 2024-08-17 16:13 | POSTOPAN2_ITS ---
Anesthesia Postop Eval I Sum Postop Eval Completion status Anesthesia document: Postop Eval 1 completed: Yes Anesthesia Postop Eval I Summary Anesthesia Postop Eval I Summary: Anesthesia Postop Eval I: Assessment Summary Airway patent Yes 08/17/24 12:00 FIELD TECHNICAL SPECIALIST.HBARR Spontaneous unlabored Yes 08/17/24 12:00 FIELD TECHNICAL SPECIALIST.HBARR respirations Mental status Awake 08/17/24 12:00 FIELD TECHNICAL SPECIALIST.HBARR nausea No 08/17/24 12:00 FIELD TECHNICAL SPECIALIST.HBARR Vomiting No 08/17/24 12:00 FIELD TECHNICAL SPECIALIST.HBARR Anesthesia Postop Eval I: Fluid Summary Crystalloid volume administer 500 08/17/24 12:00 FIELD TECHNICAL SPECIALIST.HBARR (ml) Colloids volume administered ( ml) Blood Product volume administered (ml) Total IV fluid infused 500 08/17/24 12:00 FIELD TECHNICAL SPECIALIST.HBARR Anesthesia Postop Eval I: Summary Notes Anesthesia Complication No 08/17/24 12:00 FIELD TECHNICAL SPECIALIST.HBARR Anesthesia Complication Comment: Post-operative progress note Anesthesia: Postop Eval II Evaluation Mental status: Awake and Calm Pain Level: 1 nausea: No Vomiting: No Complications Anesthesia Complication: No
--- NOTE | 2024-08-17 16:13 | PCM.POSTANE2 ---
Anesthesia Postop Eval I Sum Postop Eval Completion status Anesthesia document: Postop Eval 1 completed: Yes Anesthesia Postop Eval I Summary Anesthesia Postop Eval I Summary: Anesthesia Postop Eval I: Assessment Summary Airway patent Yes 08/17/24 12:00 WAFER FABRICATION OPERATOR.HBARR Spontaneous unlabored Yes 08/17/24 12:00 WAFER FABRICATION OPERATOR.HBARR respirations Mental status Awake 08/17/24 12:00 WAFER FABRICATION OPERATOR.HBARR nausea No 08/17/24 12:00 WAFER FABRICATION OPERATOR.HBARR Vomiting No 08/17/24 12:00 WAFER FABRICATION OPERATOR.HBARR Anesthesia Postop Eval I: Fluid Summary Crystalloid volume administer 500 08/17/24 12:00 WAFER FABRICATION OPERATOR.HBARR (ml) Colloids volume administered ( ml) Blood Product volume administered (ml) Total IV fluid infused 500 08/17/24 12:00 WAFER FABRICATION OPERATOR.HBARR Anesthesia Postop Eval I: Summary Notes Anesthesia Complication No 08/17/24 12:00 WAFER FABRICATION OPERATOR.HBARR Anesthesia Complication Comment: Post-operative progress note Anesthesia: Postop Eval II Evaluation Mental status: Awake and Calm Pain Level: 1 nausea: No Vomiting: No Complications Anesthesia Complication: No
== END 2024-08-17 13:18 | disposition home or self-care (01) ==
LOC: SDC 08:43 → AC 08:44
PROVIDERS: PCP Internal Medicine; Referring Provider Orthopaedic Surgery; Visit Provider Orthopaedic Surgery
PROC: (CPT 26055; principal; 2024-08-17 10:35)
DX: M65.331 Trigger finger, right middle finger (principal); I48.0 Paroxysmal atrial fibrillation; E11.9 Type 2 diabetes mellitus without complications; Z87.891 Personal history of nicotine dependence; K21.9 Gastro-esophageal reflux disease without esophagitis; Z79.01 Long term (current) use of anticoagulants; Z79.899 Other long term (current) drug therapy
CPT/HCPCS: 26055; 01810; 82962; A4216; J2405

== ENCOUNTER 2024-09-06 07:00 | Outpatient (RCR) | payer MEDICARE, SELFPAY ==
--- NOTE | 2024-08-03 08:00 | HP.PTEVAL ---
Patient's Visit Information Visit Information Visit Information: FIDE HODGSON Jr. is a 59 year old M referred to Physical Therapy by Dr. Stephen Cook MD with a diagnosis of PAIN IN LEFT SHOULDER ,PRIMARY OSTEOARTHRITIS LEFT SHOULDER M. Date of Evaluation: 08/03/24 Physical Therapist: Moe Muller, PT, Cert MDT, [facility] Visit Plan Frequency: 2x /Week Duration: 4 Weeks Plan: PT INTERVENTIONS POSTURAL EX'S S,RTC STRENGTHENING ,ACTIVITY MODIFICATION AND MODALITIES Subjective Subjective: This 59 y/o male presents to physical therapy with left shoulder pain . This patient has had left shoulder pain ~ 1 1/[address] Cook recommended PT and had x-rays showed left shoulder obtained demonstrates mild glenohumeral joint space osteoarthritis and narrowing as well as cyst formation of the greater tuberosity mild to moderate AC joint arthrosis. If PT doesn't help plan for MRI. Located global shoulder to lateral arm ,superior scapular described as dull ache. Patient aggravating factors lifting OH activities. Patient alleviating factors rest. Patient pain affects sleeping and general. Patient no trauma and shoulder . Patient pain affects QOL and function. Patient goals to decrease pain. SOCIAL: girlfriend VOCATION: [employer] Pain Right Shoulder: Pain Intensity (Out of 10): 8 Pain Intensity Range: 10 Objective Objective: POSTURE: mild forward posture PALAPTION: tender AC joint NEURO: denies paresthesia/tingling ,reflexes C5-6-7 2/3 AROM: shoulder flexion 160 degrees ,abduction 160 ,ER 90 ,IR L1 MMT: RTC 4/5 ,deltoid 4-/5 mild pain ,scapular middle traps 4-/5 CERVICAL ROM: min loss all planes of motion Special Tests C/S Radiculapathy - Left Upper limb tension test: Negative C/S Radiculapathy - Right Upper limb tension test: Negative C/S Radiculapathy - Left Spurlings: Negative C/S Radiculapathy - Right Spurlings: Negative L Shoulder External Rotation Lag Test - RC Tear: Negative L Shoulder Drop Sign - IS Test: Negative L Shoulder Empty Can - SS: Negative L Shoulder Neer - Impingement: Positive L Shoulder Nice Artie - Impingement: Positive L Shoulder Shrug Sign - OA/Adhesive Capsulitis: Negative Balance/Special Test Scores Quick DASH Score: 17.5000 Goals Goal 1:: Patient to be I with HEP for shoulder Goal Time Frame: 4-6 Weeks Goal 2:: Patient to demonstrate 60% improvement with less pain and improved function Goal Time Frame: 4-6 Weeks Goal 3:: Patient to improve strength shoulder 5/5 w/o pain for lifting OH Goal Time Frame: 4-6 Weeks Goal 4:: Patient to improve quick dash by 5 points to improve function. Goal Time Frame: 4-6 Weeks Rehabilitation Potential Physical Therapy Diagnosis: This patient has shoulder pain with OA along with tendinosis shoulder with pain and decrease function with OH and lifting activities. Rehabilitation Potential: Good Anticipated Interventions Patient/Client Instruction: Educate patient on: Condition and Plan of Care For the Purpose of:: To decrease pain, To increase ROM, To improve muscle performance and motor function, To improve ability to perform ADL's, To increase tolerance to activity/condition/position, To improve ability of physical actions for home/community/work/leisure, To improve health of tissue, To decrease soft tissue restriction, To increase flexibility/ROM and To prevent re-injury Therapeutic Exercise to Include: Strength training, Postural training, Flexibilty training and Active ROM Comment: RTC For the Purpose of:: To decrease pain, To increase ROM, To improve muscle performance and motor function, To increase tolerance to activity/condition/position, To improve ability of physical actions for home/community/work/leisure, To improve health of tissue, To decrease soft tissue restriction, To increase flexibility/ROM, To reduce risk of recurrence and To prevent re-injury TENS: Yes IF ES: Yes Cryotherapy (ice pack, ice massage): Yes Thermo therapy (hot pack): Yes Ultrasound (thermal/non thermal): Yes For the Purpose of:: To decrease pain, To increase ROM, To improve nutrient delivery to tissue, To increase oxygenation perfusion, To decrease soft tissue restriction and To increase flexibility/ROM Text: Thank you for the opportunity to evaluate your patient. For Medicare and Medicare HMO plans, please review the plan of care and approve it. It will need to be FAXED BACK to us at [phone] for Medicare purposes. For Medicare only, by signing this I certify the plan of care. Please let me know if there are questions or concerns regarding this plan of care. Physician Signature: Date:
--- NOTE | 2024-12-16 14:56 | HP.PT.NRP ---
Patient Information Patient Information: FIDE HODGSON Jr. was seen in my office for initial evaluation on 08/03/24. The following Plan of Care was established for this patient: POC Established Initial Frequency: 2x /Week Initial Duration: 4 Weeks Anticipated Interventions Patient/Client Instruction: Educate patient on: Condition and Plan of Care For the Purpose of:: To decrease pain, To increase ROM, To improve muscle performance and motor function, To improve ability to perform ADL's, To increase tolerance to activity/condition/position, To improve ability of physical actions for home/community/work/leisure, To improve health of tissue, To decrease soft tissue restriction, To increase flexibility/ROM and To prevent re-injury Therapeutic Exercise to Include: Strength training, Postural training, Flexibilty training and Active ROM For the Purpose of:: To decrease pain, To increase ROM, To improve muscle performance and motor function, To increase tolerance to activity/condition/position, To improve ability of physical actions for home/community/work/leisure, To improve health of tissue, To decrease soft tissue restriction, To increase flexibility/ROM, To reduce risk of recurrence and To prevent re-injury TENS: Yes IF ES: Yes Cryotherapy (ice pack, ice massage): Yes Thermo therapy (hot pack): Yes Ultrasound (thermal/non thermal): Yes For the Purpose of:: To decrease pain, To increase ROM, To improve nutrient delivery to tissue, To increase oxygenation perfusion, To decrease soft tissue restriction and To increase flexibility/ROM Last Seen Last Seen: This patient was last seen in our office . Pertinent comments regarding their Physical therapy will appear below: Patient seen for PT for left shoulder pain and OA At this point I will be discontinuing this patient from physical therapy. I would be happy to see this patient again in the future if found appropriate by the physician. Thank you! Moe Muller, PT, Cert MDT, OCS Balance/Gait/Functional tests Balance/Special Test Scores Quick DASH Score: 17.5000
== END 2024-09-06 19:00 | disposition home or self-care (01) ==
LOC: PT 07:00
PROVIDERS: PCP Internal Medicine; Referring Provider Orthopaedic Surgery Sports Medicine; Visit Provider Orthopaedic Surgery Sports Medicine
DX: M25.512 Pain in left shoulder (principal); M19.012 Primary osteoarthritis, left shoulder; M25.812 Other specified joint disorders, left shoulder
CPT/HCPCS: 97110; 97162

== ENCOUNTER → 2024-11-16 | Outpatient (CLI) | payer MEDICARE, SELFPAY ==
[2024-11-16 12:37] LABS: International Normalized Ratio 1.2; Prothrombin Time (Protime)PT. 15.2 SECONDS (11.7-14.9)
[2024-11-16 12:58] LABS: Absolute Lymphocyte Count 0.91 X10^3/uL (0.83-4.51); Absolute Neutrophil Count 2.9 X10^3/uL (2.0-7.7); Basophil# 0.04 X10^3/uL; Basophil% 0.9 % (0-1); Eosinophil# 0.12 X10^3/uL; Eosinophils% 2.8 % (0-5); Hematocrit 38.4 % (40-54); Hemoglobin 12.4 g/dL (13.0-16.5); Lymphocyte # 0.91 X10^3/ul (0.83-4.51); Lymphocyte % 20.9 % (19-41); Mean Corp Hgb Conc 32.3 g/dL (32-36); Mean Corpuscular Hgb 26.8 pg (27.0-32.0); Mean Corpuscular Volume 83.1 fL (80-94); Monocyte# 0.39 X10^3/uL; NRBC Flagged by Analyzer 0 % (0-5); Neutrophil # 2.88 X10^3/uL (2.7-7.7); Neutrophil % 66.2 % (47-70); POSITIVE COUNT YES; Platelet Count 67 K/mm3 (150-450); RBC Distribution Width SD 45.6 fl (35.1-43.9); Red Blood Count 4.62 M/mm3 (4.6-6.2); White Blood Count 4.4 K/mm3 (4.4-11.0)
[2024-11-16 13:16] LABS: Ammonia 88.4 umol/L (16-60)
[2024-11-16 13:17] LABS: ALB/GLOB Ratio 1.4 RATIO (0.9-2.4); AST(SGOT) 23 U/L (<=37); Alanine Aminotransfer ALT/SGPT 21 U/L (<=46); Albumin, Serum 3.5 g/dL (3.5-5.0); Alkaline Phosphatase 85 U/L (40-129); Anion Gap 10 (5-15); BUN 15 mg/dL (4-19); BUN/Creat Ratio 17.5 RATIO (10-20); Calcium,Total 8.7 mg/dL (7.6-11.0); Carbon Dioxide 19.6 mmol/L (21.0-32.0); Chloride 107 mmol/L (98-108); Creatinine, Serum 0.86 mg/dL (0.70-1.20); EST Glomerular Filtration Rate 100 (>60); Ferritin 18 ng/mL (37-417); Globulin 2.5 g/dL (2.2-4.2); Glucose 231 mg/dL (70-99); Potassium 4.1 mmol/L (3.3-5.1); Sodium Level 136 mmol/L (133-145); Total Bilirubin 0.56 mg/dL (0.00-1.30)
== END | disposition home or self-care (01) ==
LOC: BIMLAB 08:04
PROVIDERS: PCP Internal Medicine; Visit Provider Internal Medicine Gastroenterology
DX: K74.60 Unspecified cirrhosis of liver (principal); R18.8 Other ascites; D64.9 Anemia, unspecified
CPT/HCPCS: 36415; 80053; 82105; 82140; 82728; 85025; 85610

== ENCOUNTER 2024-12-18 19:49 | Emergency (ER) | payer MEDICARE, SELFPAY ==
[2024-12-18] VITALS (21 sets, daily range): BP systolic 56–170; BP diastolic 46–98; PULSE 89–149; RESP 16–22; TEMP 36.6–37.1; O2SAT 96–100; BMI 32.4
[2024-12-18] MEDS: 0.9% Normal Saline (1000mL) 1,000 ML 1000 ML IV ×2 (19:49→20:50)
[2024-12-18] MEDS: Pantoprazole Sodium 80 MG in 0.9% Normal Saline (50mL Bag) 15 ML 420 MG IV BOLUS (20:00)
--- NOTE | 2024-12-18 20:02 | EKG12_ITS ---
Test Reason : GI BLEED Blood Pressure : */* mmHG Vent. Rate : 95 BPM Atrial Rate : * BPM P-R Int : * ms QRS Dur : 98 ms QT Int : 362 ms P-R-T Axes : * 18 8 degrees QTcB Int : 454 ms Atrial fibrillation Abnormal ECG Confirmed by Randell Rg ([id number]), loan expeditor BURT GOODE ([id number]) on 12/20/2024 9:15:24 AM Referred By: UG Confirmed By: Randell Rg
--- NOTE | 2024-12-18 20:09 | EDS_ITS ---
HPI HPI - GI History of Present Illness Chief Complaint: GI Bleed Detail of Chief Complaint: Black stool last night bright red blood from above Informant: patient Abdominal Pain/Flank Pain Onset: Today and Yesterday Context: Sudden Onset Timing: Continuous Location: Epigastric Current Severity: Gone Worsened by: Nothing Relieved by: Nothing Nausea/Vomiting/Emesis GI Symptom: Positive for Nausea and Vomiting Onset: Today Quality: Positive for Hematemesis Diarrhea/Melena/Hematochezia GI Symptom: Positive for Melena Onset: Yesterday Associated Symptoms Associated Symptoms: Negative for Dysuria, Frequency or Hematuria Narrative Narrative: Patient is a 59-year-old male. He has history of varices. He had a TIPS procedure done 1 year ago. TIPS procedure was performed at [facility]. Patient requested I speak with Dr. Loomis who is not on-call to determine where he would like him to go other than no issue. I did speak with Dr. Loomis. He informed he had a TIPS procedure. In light of this the octreotide was canceled. He was told of patient's presentation. He recommended [facility]. Secretaries been asked to contact transfer center and ask for J31. Patient states he had black stool yesterday. told him to come in last evening. He waited till today. He had bright red blood with belching and vomiting. Patient is complaining of lightheadedness. Prior similar symptoms: Yes Recent Illness/Hospitalization: Yes PFSH [facility] Medical History Loss of hearing Wears contact lenses Depression Anxiety Alcohol use Marijuana use Migraine headache Loss of consciousness Gastric reflux Former smoker Chronic cough Shortness of breath on exertion History of edema History of echocardiogram History of stress test History of Holter monitoring Cardiology follow-up encounter History of atrial fibrillation Pain Impingement of left shoulder Arthrosis of left acromioclavicular joint Primary osteoarthritis, left shoulder Left shoulder pain Atrial flutter by electrocardiogram Ascites due to alcoholic cirrhosis Anemia due to acute blood loss History of esophageal varices Acute upper gastrointestinal bleeding Concentric left ventricular hypertrophy 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 Chronic back pain Restless leg syndrome Arthritis Stomach ulcer IBS (irritable bowel syndrome) Chronic pain Diabetes mellitus type II, controlled, with no complications Paroxysmal atrial fibrillation Home Medications ?Medication ?Instructions ?Recorded ?Last Taken ?Type Saccharomyces boulardii 250 mg 250 mg PO BID gut healt h 06/13/23 01/06/25 History capsule (Digest Probiotic (S.boulardii)) amino acids 82 gram-328 kcal/100 1 ea PO DAILY supplem ent 01/21/23 08/16/24 History gram oral powder (Complete Amino Acid Mix) parker root extract 50 mg tablet 50 mg PO BID 01/21/23 08/16/24 History handicap placard #1 ea 01/21/23 Unknown Rx sennosides 8.6 mg capsule (senna) 8.6 mg PO BID 08/16/24 History pantoprazole 40 mg tablet,delayed 40 mg PO DAILY #30 T ABLETS 05/07/24 08/17/24 Rx release CURALIN 2 cap PO BID DIABETES 08/16/24 History rifaximin 550 mg tablet (Xifaxan) 550 mg PO BID irrita ble bowels #60 11/19/24 Unknown Rx tabs Allergy/AdvReac Type Severity Reaction Status Date / Time doxepin AdvReac Severe Itching Verified 12/18/24 19:52 lactulose AdvReac Intermediate chills Verified 12/18/24 19:52 bupropion (From Wellbutrin) AdvReac Mild Other Verified 12/18/24 19:52 pregabalin (From Lyrica) AdvReac Mild Other Verified 12/18/24 19:52 enalapril AdvReac Other Verified 12/18/24 19:52 gabapentin (From Neurontin) AdvReac Other Verified 12/18/24 19:52 niacin AdvReac Other Verified 12/18/24 19:52 polyethylene glycol 3350 AdvReac Constipatio Verified 12/18/24 19:52 (From Miralax) n Mmjbggt-ZXS-ReL Reductase AdvReac Pain in Verified 12/18/24 19:52 Inhibitor (Fzhjzrh-Htu-Loc joints Reductase Inhibitor) Family History Sister Breast cancer Depression Osteoporosis Mother Cancer lung Father Heart disease Brother Liver disease Surgical History S/P TIPS (transjugular intrahepatic portosystemic shunt) History of carpal tunnel surgery of right wrist History of carpal tunnel surgery of left wrist History of esophagogastroduodenoscopy (EGD) H/O of nasal cauterization H/O oral surgery History of surgical procedure Social History household members: significant other current occupational status: disabled current occupation: disability due to pain Smoking Status: Former smoker quit date: 01/15/23 alcohol intake: former year quit: 2022 substance use type: does not use caffeine: Yes what type of physical activity do you participate in: walking frequency: daily do you feel safe at home: Yes ROS ROS ED Constitutional Constitutional ED: Reports sweats; Denies chills, fever(s) or subjective ENT ENT ED: Denies ear pain or rhinorrhea Cardiovascular Cardiovascular: Reports palpitations and racing heartbeat; Denies chest pain, orthopnea or paroxysmal nocturnal dyspnea Respiratory/Chest Respiratory/Chest: Reports dyspnea on exertion; Denies cough, dyspnea, orthopnea or paroxysmal nocturnal dyspnea Gastrointestinal Gastrointestinal: Reports melena and other Details: Bright red blood, upper ; Denies abdominal pain Musculoskeletal Musculoskeletal: Denies arthralgias or myalgias Integumentary Denies rash Hematologic/Lymphatic Hematologic/Lymphatic: Denies easy bleeding or easy bruising EXAM Physical Exam Const Vital Signs: 12/18/24 19:50 12/18/24 19:58 12/18/24 20:00 Temperature 98 F Temperature Source Oral Pulse Rate 118 H 92 89 Respiratory Rate 18 16 16 Respiratory Effort Respiratory Depth Respiratory Pattern Blood Pressure 91/52 L 56/46 L 62/49 L Blood Pressure Mean 65 49 53 Pulse Ox 98 100 100 Oxygen Delivery Method Room Air Room Air Room Air 12/18/24 20:00 12/18/24 20:02 12/18/24 20:24 Temperature Temperature Source Pulse Rate 89 104 H Respiratory Rate 22 H 18 Respiratory Effort Normal Respiratory Depth Normal Respiratory Pattern Tachypnea Blood Pressure 82/54 L 98/70 Blood Pressure Mean 63 79 Pulse Ox 100 99 99 Oxygen Delivery Method Room Air Room Air Room Air 12/18/24 20:28 12/18/24 20:30 12/18/24 20:30 Temperature Temperature Source Pulse Rate 149 H 116 H 137 H Respiratory Rate 21 H 20 H 18 Respiratory Effort Respiratory Depth Respiratory Pattern Blood Pressure 139/98 H 139/98 H Blood Pressure Mean 111 109 Pulse Ox 98 99 99 Oxygen Delivery Method Room Air 12/18/24 20:33 12/18/24 20:33 12/18/24 20:35 Temperature Temperature Source Pulse Rate 120 H 128 H 106 H Respiratory Rate 18 21 H 20 H Respiratory Effort Respiratory Depth Respiratory Pattern Blood Pressure 124/84 H 124/84 H 135/71 H Blood Pressure Mean 97 97 91 Pulse Ox 99 99 98 Oxygen Delivery Method Room Air 12/18/24 20:40 12/18/24 20:45 12/18/24 20:50 Temperature Temperature Source Pulse Rate 121 H 123 H Respiratory Rate 19 H 21 H Respiratory Effort Respiratory Depth Respiratory Pattern Blood Pressure 144/86 H 144/78 H 137/70 H Blood Pressure Mean 100 95 88 Pulse Ox 98 99 Oxygen Delivery Method Room Air 12/18/24 20:55 12/18/24 21:00 12/18/24 21:05 Temperature Temperature Source Pulse Rate 113 H 130 H 126 H Respiratory Rate 17 20 H 20 H Respiratory Effort Respiratory Depth Respiratory Pattern Blood Pressure 136/77 H 120/96 H Blood Pressure Mean 93 105 Pulse Ox 98 96 96 Oxygen Delivery Method 12/18/24 21:15 12/18/24 21:20 12/18/24 21:30 Temperature Temperature Source Pulse Rate 132 H 119 H 126 H Respiratory Rate 22 H 19 H 20 H Respiratory Effort Respiratory Depth Respiratory Pattern Blood Pressure 170/80 H Blood Pressure Mean 98 Pulse Ox 98 99 97 Oxygen Delivery Method Room Air 12/18/24 21:40 12/18/24 21:45 12/18/24 21:48 Temperature 98.8 F Temperature Source Pulse Rate 125 H 133 H 114 H Respiratory Rate 16 21 H 18 Respiratory Effort Respiratory Depth Respiratory Pattern Blood Pressure 108/93 H 108/93 H Blood Pressure Mean 100 98 Pulse Ox 96 98 100 Oxygen Delivery Method Room Air Positive well nourished and well developed Constitutional Narrative: BMI is 32.4. Patient is pale diaphoretic with a blood pressure of 62/49. Repeat was 56/44. General Appearance ED: well developed and pallor HEENT Reports TM's clear and moist mucous membranes normocephalic and atraumatic Tympanic Membrane ED: Yes TM's clear Eyes PERRL and EOMs intact bilaterally General Eye ED: Yes pale conjunctiva; Negative for scleral icterus Neck no lymphadenopathy, supple and no JVD Resp normal respiratory effort and clear to auscultation bilaterally Cardio no murmurs Rate: tachycardic Rhythm: abnormal rhythm irregularly irregular GI non-tender and non-distended GI Narrative: NG was placed patient has bright red blood. Extremity full ROM Neuro CN's II-XII intact bilaterally and moves all extremities Sensorium / Orientation: alert Psych mental status grossly normal and thought process normal Skin no wounds General Skin Exam: pallor Lesions: no lesions Rashes: no rashes MDM MDM MDM Narrative Medical decision making narrative: Patient presents with history consistent with upper GI bleed. Initial concern was variceal bleed. After speaking with Dr. Loomis and reviewing Dr. Loomis's note he was noted to have a TIPS procedure. He was scheduled for an EGD this coming January. He was informed of his presentation. Since he is not on-call and he has history of significant bleeding with a hemoglobin down to 3 he recommended transfer to the wound clinic since patient does not wish to go back to [facility] for multiple reasons. Spoke with the person [facility] transfer line for [facility]. She will call [facility] me to determine if they are capable of taking this patient otherwise they will find a bed at [facility]. 2 L of normal saline was ordered. Patient's pressure has improved to 84. 1 unit of trauma blood to be administered. He was typed and crossed for 2 units of blood. Patient was treated with Rocephin octreotide Protonix bolus and infusion. The octreotide was canceled. If the Rocephin has not been administered we will cancel that. Patient should not have varices since he had a TIPS procedure 1 year ago. History & Record Review Additional record(s) reviewed:: Prior inpatient record, Prior outpatient record, Prior ED visit and Prior labs Lab Data Attestation: I reviewed the patient's lab results. Lab results narrative: Prior hemoglobin was 13. Today's is 9.7. Platelet count is normal. White count slight elevated 11.6. Electrolyte panel reveals an elevated BUN to creatinine ratio. Leukosis elevated 307. CO2 is 19 with an anion gap of 10. Lactate is elevated at 2.2. Labs: Laboratory Results - last 24 hr 12/18/24 12/18/24 12/18/24 20:03 20:07 21:18 WBC 11.6 H RBC 3.56 L Hgb 9.7 L Hct 29.6 L MCV 83.1 MCH 27.2 MCHC 32.8 RDW Std Deviation 44.4 H RDW Coeff of Abimael 14.9 H Plt Count 156 MPV 12.9 H Immature Gran % (Auto) 0.200 Neut % (Auto) 62.8 Lymph % (Auto) 25.3 Castro % (Auto) 8.6 Eos % (Auto) 2.2 Baso % (Auto) 0.9 Absolute Neuts (auto) 7.3 Absolute Lymphs (auto) 2.94 Nucleated RBC % 0 PT 16.5 H INR 1.3 APTT 31.1 Sodium 135 Potassium 4.3 Chloride 106 Carbon Dioxide 19.5 L Anion Gap 10 BUN 26 H Creatinine 1.17 Estim Creat Clear Calc 91.50 Est GFR (MDRD) Non-Af 72 BUN/Creatinine Ratio 22.5 H Glucose 307 H Lactic Acid 2.2 H* Calcium 8.5 Ammonia 102.0 H Lipase 41 POC Glucose 275 H Blood Type A POSITIVE Antibody Screen NEGATIVE Crossmatch See Detail Radiography Chest X-Ray - ED: 1 View (Single view x-ray reveals NG to be in proper position.) and Read by ED Physician (Independently reviewed interpreted by me at 2030) Diagnostic Testing: Clinical Impression(s) from Imaging Studies KUB X-Ray 12/18/24 20:15 IMPRESSION: See above Reading Location: [facility] EKG Initial EKG: Attestation: I personally reviewed and interpreted this EKG as follows: Interpretation: Atrial Fibrillation (Rate is 95. QRS duration 98 ms. QT duration 362 ms. [place] is normal there is no acute findings. There is decreased anterior force) Management Discussion w/another healthcare provider: Professor Of Mathematics (Spoke with the call transfer line. Spoke with lead sustainability specialist Dr. Gan who accepted patient. She requested octreotide and Rocephin in addition to what has been ordered.) and Other (Report was given to the [facility] critical care transport team.) Treatment and Re-Evaluation :: I was informed the patient is complaining of nausea. Since he is diabetic 5 mg of Reglan IV push was ordered. Critical Care Time Critical Care Time: Yes Critical care time (excluding procedures): 30-74 minutes (36), Including time spent: (History, physical, discussion with , treatment for hemorrhagic shock, discussion with Dr. Hurd friend his GI specialist. He recommended transfer since he is not on-call and patient's past history), Discussing w/Patient &/or Family/Rn Ent, Discussing w/Consultants, Arranging Admission or Transfer (Documented under the MDR portion of the EMR) and Performing Direct Patient Care at Bedside (NG was placed by ER physician.) Discharge Plan Triage Chief Complaint: GI Bleed ED Provider: Amari Bergman Dx/Rx/DC Orders Clinical Impression: Hemorrhagic shock, 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, Acute upper gastrointestinal bleeding, Symptomatic anemia, Signs and symptoms of anemia, S/P TIPS (transjugular intrahepatic portosystemic shunt), Atrial fibrillation, Acidosis, lactic, Hyperglycemia due to diabetes mellitus Prescriptions: No Action Complete Amino Acid Mix 82-328 gram-kcal/100 g powder 1 ea PO DAILY Saccharomyces boulardii [Digest Probiotic (S.boulardii)] 250 mg capsule 250 mg PO BID parker root extract 50 mg tablet 50 mg PO BID (DME) handicap placard See Rx Instructions .ROUTE .MEDSUPPLY Qty: 1 0RF Rx Instructions: Length of time: 5 years Dx: Impaired physical mobility z74.09 Xifaxan 550 mg tablet 550 mg PO BID Qty: 60 11RF senna 8.6 mg capsule 8.6 mg PO BID CURALIN 2 cap PO BID pantoprazole 40 mg tablet,delayed release (DR/EC) 40 mg PO DAILY Qty: 30 11RF Primary Care Provider: Cayla Camacho Referrals: Cayla Camacho MD [Primary Care Provider] - Print Language: Armenian Disposition Disposition: Acute Care Hospital Discharge Location: [facility] Discharge Date/Time: 12/18/24 21:59
[2024-12-18] MEDS: Pantoprazole Sodium 80 MG in 0.9% Normal Saline (100mL Bag) 80 ML 10 MG CONT INF (20:10)
--- NOTE | 2024-12-18 20:15 | RAD_ITS ---
PROCEDURE: ABDOMEN SINGLE VIEW 12/18/2024 REASON FOR EXAM: NG PLACEMENT TECHNIQUE: Single view abdomen. COMPARISON: None FINDINGS: Bowel gas: Feeding tube with the side port below the diaphragm and the tip in the proximal gastric body. Nonobstructive bowel gas pattern. Calcifications: No suspicious calcification Bones: The bones are unremarkable. Other: Atelectasis in the lower lung charles. RAD/Abdomen Single View IMPRESSION: See above Reading Location: [facility]
[2024-12-18 20:22] LABS: Absolute Lymphocyte Count 2.94 X10^3/uL (0.83-4.51); Absolute Neutrophil Count 7.3 X10^3/uL (2.0-7.7); Basophil% 0.9 % (0-1); Eosinophil# 0.25 X10^3/uL; Eosinophils% 2.2 % (0-5); Hematocrit 29.6 % (40-54); Hemoglobin 9.7 g/dL (13.0-16.5); Lymphocyte # 2.94 X10^3/ul (0.83-4.51); Lymphocyte % 25.3 % (19-41); Mean Corp Hgb Conc 32.8 g/dL (32-36); Mean Corpuscular Hgb 27.2 pg (27.0-32.0); Mean Corpuscular Volume 83.1 fL (80-94); Mean Platelet Vol. 12.9 fl (6.2-12.0); Monocyte% 8.6 % (0-10); NRBC Flagged by Analyzer 0 % (0-5); Neutrophil # 7.29 X10^3/uL (2.7-7.7); Neutrophil % 62.8 % (47-70); Platelet Count 156 K/mm3 (150-450); RBC Distribution Width CV 14.9 % (11.6-14.6); RBC Distribution Width SD 44.4 fl (35.1-43.9); Red Blood Count 3.56 M/mm3 (4.6-6.2); White Blood Count 11.6 K/mm3 (4.4-11.0)
[2024-12-18 20:22] LABS: Bedside Glucose 275 mg/dL (74-106)
[2024-12-18 20:38] LABS: International Normalized Ratio 1.3; Prothrombin Time (Protime)PT. 16.5 SECONDS (11.7-14.9)
[2024-12-18 20:39] LABS: Partial Thromboplast Time 31.1 Seconds (24.1-36.2)
[2024-12-18] MEDS: Octreotide 0.5 MG in Dextrose 5%-Water (250mL Bag) 250 ML 12.5 MG CONT INF (20:51)
--- NOTE | 2024-12-18 20:51 | ED.RN ---
2008: RADFORD CATHETER PLACEMENT ATTEMPTED BY NURSE. Angela SCHAFER AND DOCTOR David NAVARRO W/ NO SUCCESS. ORDER D/C
[2024-12-18 20:56] LABS: Anion Gap 10 (5-15); BUN 26 mg/dL (4-19); BUN/Creat Ratio 22.5 RATIO (10-20); Calcium,Total 8.5 mg/dL (7.6-11.0); Carbon Dioxide 19.5 mmol/L (21.0-32.0); Chloride 106 mmol/L (98-108); Creatinine, Serum 1.17 mg/dL (0.70-1.20); EST Glomerular Filtration Rate 72 (>60); Glucose 307 mg/dL (70-99); Lipase 41 U/L (13-75); Potassium 4.3 mmol/L (3.3-5.1); Sodium Level 135 mmol/L (133-145)
[2024-12-18] MEDS: Ceftriaxone 1 GM/50 ML BAG IV (21:00)
[2024-12-18 21:18] LABS: Lactic Acid 2.2 mmol/L (0.0-2.0)
[2024-12-18] MEDS: Metoclopramide 10 MG/2 ML Vial 5 MG IV (21:35)
--- NOTE | 2024-12-18 21:46 | ED.RN ---
[facility] AT BEDSIDE. REPORT GIVEN TO TRANSPORT TEAM
--- NOTE | 2024-12-18 21:59 | ED.RN ---
REPORT CALLED TO [facility] SICU NURSE, JULIANA AT THIS TIME. NO FURTHER QUESTIONS BY RECEIVING NURSE AT THIS TIME.
[2024-12-19 00:12] LABS: Reflex Lactate? Y
== END 2024-12-18 21:59 | disposition short-term general hospital (02) ==
PROVIDERS: Emergency Provider Emergency Medicine; PCP Internal Medicine; Visit Provider Emergency Medicine
DX: R57.8 Other shock (principal); K74.60 Unspecified cirrhosis of liver; I48.91 Unspecified atrial fibrillation; E11.65 Type 2 diabetes mellitus with hyperglycemia; E11.10 Type 2 diabetes mellitus with ketoacidosis without coma; K92.2 Gastrointestinal hemorrhage, unspecified; K75.81 Nonalcoholic steatohepatitis (NASH); D62 Acute posthemorrhagic anemia; Z87.891 Personal history of nicotine dependence
CPT/HCPCS: 36430; 74018; 80048; 82140; 82962; 83605; 83690; 85025; 85610; 85730; 86850; 86900; 86901; 86920; 93005; 96365; 96366; 96367; 96375; 99285; P9016; A4216

== ENCOUNTER → 2024-12-31 | Outpatient (CLI) | payer MEDICARE, SELFPAY ==
[2024-12-31 12:33] LABS: Absolute Lymphocyte Count 0.73 X10^3/uL (0.83-4.51); Basophil# 0.05 X10^3/uL; Basophil% 0.9 % (0-1); Eosinophil# 0.09 X10^3/uL; Eosinophils% 1.7 % (0-5); Hematocrit 26.3 % (40-54); Hemoglobin 8.4 g/dL (13.0-16.5); Lymphocyte # 0.73 X10^3/ul (0.83-4.51); Lymphocyte % 13.6 % (19-41); Mean Corp Hgb Conc 31.9 g/dL (32-36); Mean Corpuscular Hgb 26.8 pg (27.0-32.0); Mean Platelet Vol. 11.6 fl (6.2-12.0); Monocyte# 0.51 X10^3/uL; Monocyte% 9.5 % (0-10); NRBC Flagged by Analyzer 0 % (0-5); Neutrophil # 3.95 X10^3/uL (2.7-7.7); Neutrophil % 73.9 % (47-70); Platelet Count 115 K/mm3 (150-450); RBC Distribution Width CV 15.1 % (11.6-14.6); Red Blood Count 3.13 M/mm3 (4.6-6.2); White Blood Count 5.4 K/mm3 (4.4-11.0)
[2024-12-31 12:41] LABS: International Normalized Ratio 1.4; Prothrombin Time (Protime)PT. 17.5 SECONDS (11.7-14.9)
[2024-12-31 13:45] LABS: ALB/GLOB Ratio 1.4 RATIO (0.9-2.4); AST(SGOT) 23 U/L (<=37); Alanine Aminotransfer ALT/SGPT 18 U/L (<=46); Albumin, Serum 3.2 g/dL (3.5-5.0); Alkaline Phosphatase 74 U/L (40-129); Anion Gap 8 (5-15); BUN 10 mg/dL (4-19); BUN/Creat Ratio 10.4 RATIO (10-20); Calcium,Total 8.2 mg/dL (7.6-11.0); Carbon Dioxide 22.6 mmol/L (21.0-32.0); Chloride 105 mmol/L (98-108); Creatinine, Serum 0.91 mg/dL (0.70-1.20); EST Glomerular Filtration Rate 97 (>60); Globulin 2.3 g/dL (2.2-4.2); Glucose 259 mg/dL (70-99); Potassium 4.4 mmol/L (3.3-5.1); Protein, Total 5.5 g/dL (5.9-8.4); Sodium Level 135 mmol/L (133-145); Total Bilirubin 1.03 mg/dL (0.00-1.30)
[2024-12-31 13:46] LABS: Hemoglobin A1c 7.3 % (<=5.6)
[2024-12-31 14:19] LABS: Cholesterol 120 mg/dL (<=200); High Density Lipoprotein 40 mg/dL; Low Density Lipoprotein Calc. 70 mg/dL; Triglycerides 52 mg/dL; Very Low Density Lipoprotein 10 mg/dL (5-40); cholesterol:hdl ratio screen 3.02
[2024-12-31 14:28] LABS: Vitamin D,25 Hydroxy 14.4 ng/mL (30-100)
== END | disposition home or self-care (01) ==
LOC: LAB 11:57
PROVIDERS: PCP Internal Medicine; Referring Provider Internal Medicine; Visit Provider Internal Medicine Gastroenterology
DX: E11.9 Type 2 diabetes mellitus without complications (principal); K74.60 Unspecified cirrhosis of liver; E55.9 Vitamin D deficiency, unspecified; R18.8 Other ascites
CPT/HCPCS: 80053; 80061; 82306; 83036; 85025; 85610

== ENCOUNTER → 2025-01-06 | Outpatient (CLI) | payer MEDICARE, SELFPAY ==
[2025-01-06 13:14] LABS: Absolute Neutrophil Count 2.9 X10^3/uL (2.0-7.7); Basophil# 0.04 X10^3/uL; Basophil% 0.9 % (0-1); Eosinophil# 0.11 X10^3/uL; Eosinophils% 2.6 % (0-5); Hemoglobin 8.7 g/dL (13.0-16.5); Lymphocyte % 18.6 % (19-41); Mean Corp Hgb Conc 31.1 g/dL (32-36); Mean Corpuscular Hgb 25.9 pg (27.0-32.0); Mean Corpuscular Volume 83.3 fL (80-94); Mean Platelet Vol. 11.6 fl (6.2-12.0); Monocyte# 0.48 X10^3/uL; Monocyte% 11.1 % (0-10); NRBC Flagged by Analyzer 0 % (0-5); Neutrophil # 2.86 X10^3/uL (2.7-7.7); Neutrophil % 66.3 % (47-70); POSITIVE COUNT YES; POSITIVE MORPHOLOGY YES; Platelet Count 124 K/mm3 (150-450); RBC Distribution Width CV 15.1 % (11.6-14.6); RBC Distribution Width SD 46.1 fl (35.1-43.9); Red Blood Count 3.36 M/mm3 (4.6-6.2); White Blood Count 4.3 K/mm3 (4.4-11.0)
[2025-01-06 13:38] LABS: Ferritin 10 ng/mL (37-417); Iron 19 ug/dL (65-175); Iron Binding Capacity,Total 345 ug/dL (250-450); Iron Binding Capacity,Unsat 326 ug/dL (228-428)
[2025-01-06 15:02] LABS: RET-HE 17.5 pg (30-35); Reticulocyte Count 1.86 % (0.5-1.5)
[2025-01-07 05:07] LABS: AFP, Tumor Marker < 1.8 ng/mL (0.0-8.4); Transferrin 304 mg/dL (177-329)
== END | disposition home or self-care (01) ==
LOC: BIMLAB 09:10
PROVIDERS: PCP Internal Medicine; Referring Provider Internal Medicine Gastroenterology; Visit Provider Internal Medicine Gastroenterology
DX: K74.60 Unspecified cirrhosis of liver (principal); R18.8 Other ascites; R53.83 Other fatigue
CPT/HCPCS: 36415; 82105; 82728; 83540; 83550; 84466; 85025; 85045

== ENCOUNTER → 2025-01-14 | Outpatient (CLI) | payer MEDICARE, SELFPAY ==
[2025-01-14 12:25] LABS: Absolute Lymphocyte Count 0.94 X10^3/uL (0.83-4.51); Absolute Neutrophil Count 3.1 X10^3/uL (2.0-7.7); Basophil# 0.06 X10^3/uL; Basophil% 1.3 % (0-1); Eosinophil# 0.18 X10^3/uL; Eosinophils% 3.8 % (0-5); Hematocrit 29.2 % (40-54); Lymphocyte # 0.94 X10^3/ul (0.83-4.51); Lymphocyte % 19.6 % (19-41); Mean Corp Hgb Conc 30.8 g/dL (32-36); Mean Corpuscular Hgb 24.7 pg (27.0-32.0); Mean Corpuscular Volume 80.2 fL (80-94); Mean Platelet Vol. 11.1 fl (6.2-12.0); Monocyte# 0.52 X10^3/uL; Monocyte% 10.8 % (0-10); NRBC Flagged by Analyzer 0 % (0-5); Neutrophil # 3.09 X10^3/uL (2.7-7.7); Neutrophil % 64.3 % (47-70); Platelet Count 124 K/mm3 (150-450); RBC Distribution Width SD 43.9 fl (35.1-43.9); Red Blood Count 3.64 M/mm3 (4.6-6.2); White Blood Count 4.8 K/mm3 (4.4-11.0)
== END | disposition home or self-care (01) ==
LOC: BIMLAB 11:10
PROVIDERS: PCP Internal Medicine; Referring Provider Physician Assistant; Visit Provider Physician Assistant
DX: D64.9 Anemia, unspecified (principal)
CPT/HCPCS: 36415; 85025

== ENCOUNTER → 2025-02-07 | Outpatient (CLI) | payer MEDICARE, SELFPAY ==
[2025-02-07 11:44] LABS: Absolute Lymphocyte Count 0.71 X10^3/uL (0.83-4.51); Absolute Neutrophil Count 2.9 X10^3/uL (2.0-7.7); Basophil# 0.05 X10^3/uL; Basophil% 1.2 % (0-1); Eosinophil# 0.14 X10^3/uL; Eosinophils% 3.3 % (0-5); Hematocrit 31.6 % (40-54); Hemoglobin 9.3 g/dL (13.0-16.5); Lymphocyte # 0.71 X10^3/ul (0.83-4.51); Lymphocyte % 16.8 % (19-41); Mean Corp Hgb Conc 29.4 g/dL (32-36); Mean Corpuscular Hgb 23.3 pg (27.0-32.0); Monocyte# 0.43 X10^3/uL; Monocyte% 10.2 % (0-10); NRBC Flagged by Analyzer 0 % (0-5); Neutrophil # 2.89 X10^3/uL (2.7-7.7); Neutrophil % 68.3 % (47-70); Platelet Count 100 K/mm3 (150-450); RBC Distribution Width CV 17.1 % (11.6-14.6); RBC Distribution Width SD 48.5 fl (35.1-43.9); White Blood Count 4.2 K/mm3 (4.4-11.0)
== END | disposition home or self-care (01) ==
PROVIDERS: PCP Internal Medicine; Referring Provider Physician Assistant; Visit Provider Physician Assistant
DX: D64.9 Anemia, unspecified (principal)
CPT/HCPCS: 36415; 85025

== ENCOUNTER 2025-03-21 09:07 | Day surgery (SDC) | payer MEDICARE, SELFPAY ==
--- NOTE | 2025-03-16 14:31 | PAT.ANESEVAL ---
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 When Was Last Pacemaker Check QUESTION #4 FULL TEXT: You/Your Family Experience fever (hyperthermia) with Anesthesia Last Oral Intake Last Oral intake: Last Oral Intake NPO since Meds taken in AM with sips of water? Meds patient instructed to take am of surgery PONV PONV - bobbin winder tender: PONV - bobbin winder tender Female No 03/16/25 10:24 HX of Motion Sickness No 03/16/25 10:24 HX of N/V After Surgery No 03/16/25 10:24 Non-Smoker Yes 03/16/25 10:24 Duration of Surgery greater No 03/16/25 10:24 than 60 minutes Number of Risk Factors 1 03/16/25 10:24 PONV Score Low Risk 03/16/25 10:24 Height & Weight Height & Weight: Anesthesia: Height & Weight Height 6 ft 2 in 02/01/25 15:36 Respiratory Assessment Respiratory Assessment - bobbin winder tender: Respiratory Tract Infection Hx - bobbin winder tender Hx Respiratory Tract Infection No 03/16/25 10:24 STOP Sleep Apnea STOP Sleep Apnea - bobbin winder tender: STOP Sleep Apnea - bobbin winder tender Hx Hypertension No: HYPOTENTION 03/16/25 10:24 Hx Sleep Apnea Yes 03/16/25 10:24 CPAP No 03/16/25 10:24 BIPAP No 03/16/25 10:24 Do you snore loudly (louder than talking or can be heard Do you often feel tired/ fatigued/ sleepy during daytime? Has anyone observed you stop breathing during sleep? STOP Results Positive 03/16/25 10:24 QUESTION #5 FULL TEXT : Do you snore loudly (louder than talking or can be heard through closed doors)? Tobacco Use History Tobacco Use History - bobbin winder tender: Tobacco Use History - bobbin winder tender Tobacco Use Smoking Status Former smoker 03/16/25 10:24 Hx Tobacco Use No 03/16/25 10:24 Years Smoking Packs Smoked per Day Smoking Cessation Date was No - quit smoking greater 03/16/25 10:24 within the last 15 years than 15 years ago Hx Smoking Cessation Date Hx Smoking Cessation No 03/16/25 10:24 Counseling Hematologic Medial History Hematologic Hx - bobbin winder tender: Hematologic Medical Hx - vp talent management Hx of Blood Transfusion No 03/16/25 10:24 Hx of Transfusion in last 3 No 03/16/25 10:24 Months Date of Last Transfusion (if within last 3 months) Ever experience any problems No 03/16/25 10:24 with transfusion(s)? Specify any problems Hx of Preganancy in last 3 N/A 03/16/25 10:24 Months Nurse Filling Out Transfusion JZOLLJENN 03/16/25 10:24 & Questions: Date: 03/16/25 03/16/25 10:24 Time: 10:28 03/16/25 10:24 Patient unable to answer at this time (ie. confused, unrespo /Reproduction History /Reproductive History - bobbin winder tender: /Reproductive Hx- bobbin winder tender Hx Now No 03/16/25 10:24 Gestational Age (in weeks): EDC: Hx Hx Para Hx Section SAB No 03/16/25 10:24 [facility] Medical History (Updated 03/16/25 @ 10:35 by Dori Tobin) History of esophageal varices with bleeding Low iron Anemia History of ulceration Sleep apnea Hypertension History of trigger finger Persistent atrial fibrillation Loss of hearing Wears contact lenses Depression Anxiety Alcohol use Marijuana use Migraine headache Loss of consciousness Gastric reflux Former smoker Chronic cough Shortness of breath on exertion History of edema History of echocardiogram History of stress test History of Holter monitoring Cardiology follow-up encounter History of atrial fibrillation Pain Impingement of left shoulder Arthrosis of left acromioclavicular joint Primary osteoarthritis, left shoulder Left shoulder pain Atrial flutter by electrocardiogram Ascites due to alcoholic cirrhosis Anemia due to acute blood loss History of esophageal varices Acute upper gastrointestinal bleeding Concentric left ventricular hypertrophy 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 Chronic back pain Restless leg syndrome Arthritis Stomach ulcer IBS (irritable bowel syndrome) Chronic pain Diabetes mellitus type II, controlled, with no complications Paroxysmal atrial fibrillation Home Medications ?Medication ?Instructions ?Recorded ?Last Taken ?Type Saccharomyces boulardii 250 mg 250 mg PO BID gut health 01/21/23 08/16/24 History capsule (Digest Probiotic (S.boulardii)) amino acids 82 gram-328 kcal/100 1 ea PO DAILY supplement 01/21/23 08/16/24 History gram oral powder (Complete Amino Acid Mix) handicap placard #1 ea 01/21/23 Unknown Rx sennosides 8.6 mg capsule (senna) 8.6 mg PO BID 04/08/23 08/16/24 History CURALIN 2 cap PO BID DIABETES 08/03/24 08/16/24 History rifaximin 550 mg tablet (Xifaxan) 550 mg PO BID irritable bowels #60 11/19/24 Unknown Rx tabs pantoprazole 40 mg tablet,delayed 40 mg PO BID #60 TABLETS 01/26/25 Unknown Rx release ascorbic acid (vitamin C) 500 mg 500 mg PO BID #60 tabs 02/01/25 Unknown Rx tablet cholecalciferol (vitamin D3) 1,250 1,250 mcg PO QWEEK 4 weeks #4 tabs 02/01/25 Unknown Rx mcg (50,000 unit) tablet midodrine 5 mg tablet 5 mg PO TID PRN SBP <100 mmhg 1 02/01/25 Unknown Rx month #90 tabs carvedilol 3.125 mg tablet (Coreg) 3.125 mg PO BID 03/16/25 Unknown History ferrous sulfate 325 mg (65 mg 325 mg PO .QD 03/16/25 Unknown History iron) tablet,delayed release Allergy/AdvReac Type Severity Reaction Status Date / Time doxepin AdvReac Severe Itching Verified 03/16/25 10:09 lactulose AdvReac Intermediate chills Verified 03/16/25 10:09 bupropion (From Wellbutrin) AdvReac Mild Other Verified 03/16/25 10:09 pregabalin (From Lyrica) AdvReac Mild Other Verified 03/16/25 10:09 enalapril AdvReac Other Verified 03/16/25 10:09 gabapentin (From Neurontin) AdvReac Other Verified 03/16/25 10:09 niacin AdvReac Other Verified 03/16/25 10:09 polyethylene glycol 3350 AdvReac Constipatio Verified 03/16/25 10:09 (From Miralax) n [id number] Reductase AdvReac Pain in Verified 03/16/25 10:09 Inhibitor (Hdajysm-Dwq-Czv joints Reductase Inhibitor) Family History Sister Breast cancer Depression Osteoporosis Mother Cancer lung Father Heart disease Brother Liver disease Surgical History (Updated 03/16/25 @ 10:35 by Dori Tobin) History of esophagogastroduodenoscopy (EGD) S/P TIPS (transjugular intrahepatic portosystemic shunt) History of carpal tunnel surgery of right wrist History of carpal tunnel surgery of left wrist History of esophagogastroduodenoscopy (EGD) H/O of nasal cauterization H/O oral surgery History of surgical procedure Social History household members: significant other current occupational status: disabled current occupation: disability due to pain Smoking Status: Former smoker quit date: 01/15/23 alcohol intake: former year quit: 2022 substance use type: does not use caffeine: Yes what type of physical activity do you participate in: walking frequency: daily do you feel safe at home: Yes Audit: Pertinent Findings Pertinent Findings EKG Perinent findings: 07/07/2023. Atrial fibrillation 95 bpm. Stress test pertinent findings: 07/07/2023. Patient in atrial fibrillation. Stress test is negative for EKG criteria at moderate workload. Consult pertinent findings: Cardiology 01/26/2025. Persistent atrial fibrillation. Heart rate controlled on metoprolol. Unable to anticoagulate due to anemia and bleeding issues. Obtain echocardiogram to assess his ejection fraction and his lightheadedness and dizziness. Liver cirrhosis secondary to Martinez. Being followed by GI. Additional pertinent findings: Cardiology notes indicate that echo was done to be done 01/26/2025. However there is no record of it that I see in the hospital testing. Recommendation Anesthesia Recommendation Anesthesia recommendation: Anesthesia NOT approved Reason NOT optimized for anesthesia: Patient was asked to have echocardiogram to assess lightheadedness and dizziness 01/26/2025. There is currently no record of echocardiogram. If this was done the records should be obtained or cardiology should be notified to see if patient is optimized prior to the procedure.
--- NOTE | 2025-03-16 15:03 | PAT.ANESEVAL ---
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 When Was Last Pacemaker Check QUESTION #4 FULL TEXT: You/Your Family Experience fever (hyperthermia) with Anesthesia Last Oral Intake Last Oral intake: Last Oral Intake NPO since Meds taken in AM with sips of water? Meds patient instructed to take am of surgery PONV PONV - workforce development specialist: PONV - workforce development specialist Female No 03/16/25 10:24 HX of Motion Sickness No 03/16/25 10:24 HX of N/V After Surgery No 03/16/25 10:24 Non-Smoker Yes 03/16/25 10:24 Duration of Surgery greater No 03/16/25 10:24 than 60 minutes Number of Risk Factors 1 03/16/25 10:24 PONV Score Low Risk 03/16/25 10:24 Height & Weight Height & Weight: Anesthesia: Height & Weight Height 6 ft 2 in 02/01/25 15:36 Respiratory Assessment Respiratory Assessment - workforce development specialist: Respiratory Tract Infection Hx - workforce development specialist Hx Respiratory Tract Infection No 03/16/25 10:24 STOP Sleep Apnea STOP Sleep Apnea - workforce development specialist: STOP Sleep Apnea - workforce development specialist Hx Hypertension No: HYPOTENTION 03/16/25 10:24 Hx Sleep Apnea Yes 03/16/25 10:24 CPAP No 03/16/25 10:24 BIPAP No 03/16/25 10:24 Do you snore loudly (louder than talking or can be heard Do you often feel tired/ fatigued/ sleepy during daytime? Has anyone observed you stop breathing during sleep? STOP Results Positive 03/16/25 10:24 QUESTION #5 FULL TEXT : Do you snore loudly (louder than talking or can be heard through closed doors)? 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 Specify any problems Hx of Preganancy in last 3 N/A 03/16/25 10:24 Months Nurse Filling Out Transfusion [email or web address] 03/16/25 10:24 & Questions: Date: 03/16/25 03/16/25 10:24 Time: 10:28 03/16/25 10:24 Patient unable to answer at this time (ie. confused, unrespo /Reproduction History /Reproductive History - workforce development specialist: /Reproductive Hx- workforce development specialist Hx Now No 03/16/25 10:24 Gestational Age (in weeks): EDC: Hx Hx Para Hx Section SAB No 03/16/25 10:24 [facility] Medical History (Updated 03/16/25 @ 10:35 by Dori Tobin) History of esophageal varices with bleeding Low iron Anemia History of ulceration Sleep apnea Hypertension History of trigger finger Persistent atrial fibrillation Loss of hearing Wears contact lenses Depression Anxiety Alcohol use Marijuana use Migraine headache Loss of consciousness Gastric reflux Former smoker Chronic cough Shortness of breath on exertion History of edema History of echocardiogram History of stress test History of Holter monitoring Cardiology follow-up encounter History of atrial fibrillation Pain Impingement of left shoulder Arthrosis of left acromioclavicular joint Primary osteoarthritis, left shoulder Left shoulder pain Atrial flutter by electrocardiogram Ascites due to alcoholic cirrhosis Anemia due to acute blood loss History of esophageal varices Acute upper gastrointestinal bleeding Concentric left ventricular hypertrophy 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 Chronic back pain Restless leg syndrome Arthritis Stomach ulcer IBS (irritable bowel syndrome) Chronic pain Diabetes mellitus type II, controlled, with no complications Paroxysmal atrial fibrillation Home Medications ?Medication ?Instructions ?Recorded ?Last Taken ?Type Saccharomyces boulardii 250 mg 250 mg PO BID gut health 01/21/23 08/16/24 History capsule (Digest Probiotic (S.boulardii)) amino acids 82 gram-328 kcal/100 1 ea PO DAILY supplement 01/21/23 08/16/24 History gram oral powder (Complete Amino Acid Mix) handicap placard #1 ea 01/21/23 Unknown Rx sennosides 8.6 mg capsule (senna) 8.6 mg PO BID 04/08/23 08/16/24 History CURALIN 2 cap PO BID DIABETES 08/03/24 08/16/24 History rifaximin 550 mg tablet (Xifaxan) 550 mg PO BID irritable bowels #60 11/19/24 Unknown Rx tabs pantoprazole 40 mg tablet,delayed 40 mg PO BID #60 TABLETS 01/26/25 Unknown Rx release ascorbic acid (vitamin C) 500 mg 500 mg PO BID #60 tabs 02/01/25 Unknown Rx tablet cholecalciferol (vitamin D3) 1,250 1,250 mcg PO QWEEK 4 weeks #4 tabs 02/01/25 Unknown Rx mcg (50,000 unit) tablet midodrine 5 mg tablet 5 mg PO TID PRN SBP <100 mmhg 1 02/01/25 Unknown Rx month #90 tabs carvedilol 3.125 mg tablet (Coreg) 3.125 mg PO BID 03/16/25 Unknown History ferrous sulfate 325 mg (65 mg 325 mg PO .QD 03/16/25 Unknown History iron) tablet,delayed release Allergy/AdvReac Type Severity Reaction Status Date / Time doxepin AdvReac Severe Itching Verified 03/16/25 10:09 lactulose AdvReac Intermediate chills Verified 03/16/25 10:09 bupropion (From Wellbutrin) AdvReac Mild Other Verified 03/16/25 10:09 pregabalin (From Lyrica) AdvReac Mild Other Verified 03/16/25 10:09 enalapril AdvReac Other Verified 03/16/25 10:09 gabapentin (From Neurontin) AdvReac Other Verified 03/16/25 10:09 niacin AdvReac Other Verified 03/16/25 10:09 polyethylene glycol 3350 AdvReac Constipatio Verified 03/16/25 10:09 (From Miralax) n Kkqwypk-KEL-GfA Reductase AdvReac Pain in Verified 03/16/25 10:09 Inhibitor (Bqfxmhc-Lxg-Rfy joints Reductase Inhibitor) Family History Sister Breast cancer Depression Osteoporosis Mother Cancer lung Father Heart disease Brother Liver disease Surgical History (Updated 03/16/25 @ 10:35 by Dori Tobin) History of esophagogastroduodenoscopy (EGD) S/P TIPS (transjugular intrahepatic portosystemic shunt) History of carpal tunnel surgery of right wrist History of carpal tunnel surgery of left wrist History of esophagogastroduodenoscopy (EGD) H/O of nasal cauterization H/O oral surgery History of surgical procedure Social History household members: significant other current occupational status: disabled current occupation: disability due to pain Smoking Status: Former smoker quit date: 01/15/23 alcohol intake: former year quit: 2022 substance use type: does not use caffeine: Yes what type of physical activity do you participate in: walking frequency: daily do you feel safe at home: Yes Audit: Pertinent Findings HISTORY of Pertinent Findings History of Pertinent Findings: EKG Pertinent Findings EKG Perinent findings 07/07/2023. Atrial 03/16/25 14:33 fibrillation 95 bpm. Stress Test Pertinent Findings Stress test pertinent findings 07/07/2023. Patient in 03/16/25 14:33 atrial fibrillation. Stress test is negative for EKG criteria at moderate workload. Consult Pertinent Findings Consult pertinent findings Cardiology 01/26/2025. 03/16/25 14:33 Persistent atrial fibrillation. Heart rate controlled on metoprolol. Unable to anticoagulate due to anemia and bleeding issues. Obtain echocardiogram to assess his ejection fraction and his lightheadedness and dizziness. Liver cirrhosis secondary to Martinez. Being followed by GI. Additional Pertinent Findings Additional pertinent findings Cardiology notes indicate 03/16/25 14:33 that echo was done to be done 01/26/2025. However there is no record of it that I see in the hospital testing. Pertinent Findings Additional pertinent findings: Cardiology has sent a note 03/16/2025. They state there is no need for echocardiogram prior to procedure. And recommend no more cardiac diagnostics prior to this procedure. Recommendation Anesthesia Recommendation Anesthesia recommendation: OPTIMIZED for anesthesia
[2025-03-21] VITALS (9 sets, daily range): BP systolic 93–122; BP diastolic 56–72; PULSE 79–89; RESP 16–18; TEMP 36.1–36.8; O2SAT 94–98; BMI 30.6
--- NOTE | 2025-03-21 09:34 | HP.PCM_ITS ---
HPI - General General Date of Admission: 03/21/25 Date of Service: 03/21/25 Chief Complaint: Cirrhosis HPI Narrative FIDE HODGSON, is a 60 M who presents for upper endoscopy regarding abdominal pain and esophageal varices surveillance *[facility] hospitalization 01.08.23-01.14.23. ED presentation with multiple episodes of hematemesis for 15 minutes; similar episode in August, but single hematemesis and spontaneously resolved. Workup concerning with orthostatic hypotension and hgb 9.7 and tachycardia of 130 and admitted for management of GIB. GI consulted 01.09.23 noting medical history of alcoholism with suspected cirrhosis.? EGD 01.09.23?Grade III varices upper, middle and lower third of esophagus, bandedx5; large amount food residue in gastric body; isolated gastric varices, type I with oozing blood in gastric fundus, bandedx2; hematin in duodenal bulb.? US RUQ 01.09.23?hepatic measurement 12.8 with scalloped margins suggestive of cirrhotic changes; splenomegaly; moderate ascites? Paracentesis with cytology 01.13.23?8050mL vik fluid removed; cytology 1+ RBC and WBC, no malignancy or infection.? OV 01.21.23 He has been having nausea and loose stools and weakness/ fatigue/chills since starting lactulose; stopped lactulose as their research indicated it should not be prescribed with those who have IBS. Lactulose has been stopped and feels his symptoms are now resolved. ?Biochemical?CBC (hgb 9.4), coag, CMP, TIBC, ferritin, TSH, ANCA, ASM, AFP, MELISSA comp, AFP WNL? Iron L19, iron sat L7.3, [id number]-[id number] 28-AP H155, ammonia H49, ceruloplasmin H31.7, Vit B12 H1209? MELD 8? Contact 01.31.23 Lasix (with BP parameters) and spironolactone were sent to his pharmacy. Update clinic with BP in 4 weeks and get potassium level and can then determine ability to increase arki dose. ? [facility] hospitalization 03.22.23-03.31.23 and transferred to [facility]. Hospitalized for management of alcoholic cirrhosis with ascites and acute UGIB and A-Fib.?EGD 03.22.23?four columns of Grade III EV with active bleeding in entire esophagus, banded; red blood in stomach and duodenum. No specimens collected? [facility] hospitalization 03.23.23-04.01.23 for management of decompensated cirrhosis (AEB ascites, EV) with severe protein calorie malnutrition, DMII, A.Fib for placement of rescue TIPS. During initial procedure attempt for TIPS he developed a massive EV bleed during intubation requiring MTP activation and Vamsi placement. Extubated 03.28.23 in ICU and sent to floor 03.30.23.?IR procedure 03.26.23?with placement of TIPS?Colonoscopy 03.31.23?hemorrhoids; 12mm pedunculate hyperplastic polyp, complete resection; 2mm inflammatory polyp; single AVM, argon plasma.?US TIPS eval?significant artifact inconclusive for TIPS function?CT venogram 04.01.23?for TIPS functionality with appropriate vascular flow.? ? OV 06.03.23 Pt reports he is feeling much better since [facility] visit. States he is still having abdominal pain from the paracentesis he had at [facility]. Has not had any paracentesis since. Denies nausea or vomiting. BM are irregular. Takes Xifaxan and Senna for bowels. States he will go several times one day and then skip a day and then go again. OV 12/03/23 pt reports an improvement in symptoms since last visit. Pt denies pain, swelling, confusion, dizziness, but reports continued fatigue. Pt continues with current medication regimen, but reports that he takes 6-8 senna a day in order to have a BM everyday. Pt reports that BMs vary between loose and formed. OV 10.05.04 pt reports continued abd pain when he wears his seatbelt. Pt reports constant gas and bloating. Pt reports loose bm due to taking several senna a day. pt denies trouble sleeping, swelling, confusion, brain fog, and dizziness. OV 11.19.24 pt reports increased gas and bloating. States that belching has increased significantly; reports the only time he does not have gas is when he is laying down. pt reports continued difficulty swallowing pills. Continues to have difficulty sleeping and alternating bowel movements. [facility] ED 12.18.24 presents for GI bleed - Pt transferred to [facility] EGD 12.19.24 w/ [facility] Large (>5 mm) esophageal varices with active bleeding and stigmata of recent bleeding, banded. Fresh blood blots in the stomach. No gastric varices seen. Normal duodenal bulb and second portion of the duodenum. No specimens collected. Liver US with Doppler 12.22.24 w/ [facility] 1. Question stenosis of the TIPS with significantly elevated velocities proximally near the portal vein and diminished velocities distally. 2. In addition, normal antegrade flow within the right anterior portal vein branch and left portal vein branch. This should be reversed if TIPS is appropriately functioning. 3. Probable patent splenorenal shunt noted. 4. Splenomegaly. OV 02.01.25 pt reports he is feeling slightly better since switching to me toprolol from carvedilol, but still not feeling good. Pt reports continued gas / belching. Has questions regarding his TIPS and imaging to check the pressures. MELD CP ESR/CRP plt/INR ammonia 04.01.23 -- -- --/-- 110/1.3 -- 10.. 9 -- 6/4.65 115/1.3 68.0 . 14 -- 2 / <2.9 82 / 1.3 78.0 8.. 10 -- 3 / <2.9 14.9 / 1.2 75.0 .. 8 -- -- / -- 67 / 1.2 88.4 5..25 10 A -- / -- 124 / 1.4 102.0 [facility] Medical History History of esophageal varices with bleeding Low iron Anemia History of ulceration Sleep apnea Hypertension History of trigger finger Persistent atrial fibrillation Loss of hearing Wears contact lenses Depression Anxiety Alcohol use Marijuana use Migraine headache Loss of consciousness Gastric reflux Former smoker Chronic cough Shortness of breath on exertion History of edema History of echocardiogram History of stress test History of Holter monitoring Cardiology follow-up encounter History of atrial fibrillation Pain Impingement of left shoulder Arthrosis of left acromioclavicular joint Primary osteoarthritis, left shoulder Left shoulder pain Atrial flutter by electrocardiogram Ascites due to alcoholic cirrhosis Anemia due to acute blood loss History of esophageal varices Acute upper gastrointestinal bleeding Concentric left ventricular hypertrophy 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 Chronic back pain Restless leg syndrome Arthritis Stomach ulcer IBS (irritable bowel syndrome) Chronic pain Diabetes mellitus type II, controlled, with no complications Paroxysmal atrial fibrillation Home Medications ?Medication ?Instructions ?Recorded ?Last Taken ?Type Saccharomyces boulardii 250 mg 250 mg PO BID gut healt h 01/21/23 08/16/24 History capsule (Digest Probiotic (S.boulardii)) amino acids 82 gram-328 kcal/100 1 ea PO DAILY supplem ent 01/21/23 08/16/24 History gram oral powder (Complete Amino Acid Mix) handicap placard #1 ea 01/21/23 Unknown Rx sennosides 8.6 mg capsule (senna) 8.6 mg PO BID 08/16/24 History CURALIN 2 cap PO BID DIABETES 08/16/24 History rifaximin 550 mg tablet (Xifaxan) 550 mg PO BID irrita ble bowels #60 11/19/24 Unknown Rx tabs pantoprazole 40 mg tablet,delayed 40 mg PO BID #60 TAB LETS 01/26/25 Unknown Rx release ascorbic acid (vitamin C) 500 mg 500 mg PO BID #60 tab s 02/01/25 Unknown Rx tablet cholecalciferol (vitamin D3) 1,250 1,250 mcg PO QWEEK 4 weeks #4 tabs 02/01/25 Unknown Rx mcg (50,000 unit) tablet midodrine 5 mg tablet 5 mg PO TID PRN SBP <100 mmh g 1 02/01/25 Unknown Rx month #90 tabs carvedilol 3.125 mg tablet (Coreg) 3.125 mg PO BID 02/0203/20/25 History ferrous sulfate 325 mg (65 mg 325 mg PO .QD 03/16/25 U nknown History iron) tablet,delayed release Allergy/AdvReac Type Severity Reaction Status Date / Time doxepin AdvReac Severe Itching Verified 03/21/25 09:31 lactulose AdvReac Intermediate chills Verified 03/21/25 09:31 bupropion (From Wellbutrin) AdvReac Mild Other Verified 03/21/25 09:31 pregabalin (From Lyrica) AdvReac Mild Other Verified 03/21/25 09:31 enalapril AdvReac Other Verified 03/21/25 09:31 gabapentin (From Neurontin) AdvReac Other Verified 03/21/25 09:31 niacin AdvReac Other Verified 03/21/25 09:31 polyethylene glycol 3350 AdvReac Constipatio Verified 03/21/25 09:31 (From Miralax) n Ezjkcov-DIK-CoK Reductase AdvReac Pain in Verified 03/21/25 09:31 Inhibitor (Xmyabzj-Zfr-Enf joints Reductase Inhibitor) Family History Sister Breast cancer Depression Osteoporosis Mother Cancer lung Father Heart disease Brother Liver disease Surgical History History of esophagogastroduodenoscopy (EGD) S/P TIPS (transjugular intrahepatic portosystemic shunt) History of carpal tunnel surgery of right wrist History of carpal tunnel surgery of left wrist History of esophagogastroduodenoscopy (EGD) H/O of nasal cauterization H/O oral surgery History of surgical procedure Social History household members: significant other current occupational status: disabled current occupation: disability due to pain Smoking Status: Former smoker quit date: 01/15/23 alcohol intake: former year quit: 2022 substance use type: does not use caffeine: Yes what type of physical activity do you participate in: walking frequency: daily do you feel safe at home: Yes ROS Constitutional Constitutional: Denies fatigue, fever(s), poor appetite, weight gain or weight loss Gastrointestinal Gastrointestinal: Denies belching, bloating, change in bowel habits, change in stool character, chewing difficulty, coffee ground emesis, constipation, cramping, diarrhea, dyspepsia, dysphagia, early satiety, excessive flatus, fecal incontinence, heartburn, hematemesis, hematochezia, hemorrhoids, loose stools, melena, nausea, odynophagia, rectal bleeding, tenesmus, vomiting or weight changes Assessment & Plan Assessment/Plan (1) Cirrhosis: QUALIFIERS: Hepatic cirrhosis type: unspecified hepatic cirrhosis Ascites presence: with ascites Qualified Code(s): K74.60 - Unspecified cirrhosis of liver; R18.8 - Other ascites (2) Acute upper gastrointestinal bleeding: PLAN: Assessment and Plan Assessment and Plan (1) 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: Status: Chronic Comment: ON MEDS. SECONDARY TO NSAIDS Plan: Patient has serious life-threatening upper GI bleed, melena and hematemesis and he was life flighted to [facility] Where he had a 14 bands. EGD showed large more than 5 mm varices in middle third of esophagus, lower third of esophagus with active bleeding, mild PHG in the body. Fresh blood clots in the stomach. No gastric varices seen. Duodenal bulb and D2 were normal. And stigmata of recent bleeding. No bleeding during the procedure. Patient had TIPS in about December 2023 in [facility]. Liver vascular ultrasound was done which showed increased portosystemic gradient with proximal TIPS peak velocity 253 cm/s, mid TIPS 189 cm/s and distal tips 50 cm/s. Therefore 203 cm/s gradient from proximal to distal end of the TIPS This was further confirmed and patient had TIPS revision on 12/27/2024. Please revision pressures were IVC 10 mm, RA 9 mm, mid 10 Mm, PV 25 Mm, Portosystemic Gradient 16 mmHg. TIPS was balloon dilated and Post TIPS measurements were RA 14, mid TIPS 18, PV 19 and portosystemic gradient 5 mmHg. Patient advised to follow-up liver ultrasound vascular Doppler after 3 months in March and then 6 months and then 1 year. Advised to follow-up in [facility] With color Doppler as we do not have facility for measurement of TIPS gradient. Liver cirrhosis decompensated with upper GI bleed, esophageal varices, ascites status post TIPS. Labs, latest 01/14/2025 reviewed. Last H&H 05/09.2%. Platelet count 100 24K, stable. INR 1.4 on 04/02/2025. A1c 7.3%, glucose 259. Iron studies shows low iron, iron saturation ferritin 10. aFP less than 1.8. Vitamin D low 14.4. Immunology profile was negative Prescription for midodrine 5 mg 3 times daily as needed for SBP less than 100 mmHg, colecalciferol, ferrous sulfate and vitamin C prescribed. Patient stated that even with the lowest dose of carvedilol 3.25 mg his blood pressure was in 60s to low 70s therefore was changed to metoprolol tartrate. The patient's was explained that metoprolol does not have antiportal hypertensive effect but for now continue metoprolol and blood pressure charting Last MELD score 10, CPT score 6, class A. Follow-up in 3 months. Follow-up labs ordered before next visit
[2025-03-21] MEDS: Lactated Ringers 1,000 ML 15 ML IV (09:44)
--- NOTE | 2025-03-21 09:56 | PCM.PRE.AN2 ---
ASA Classification* ASA Classification ASA Classification: 3 Assessment & Plan Anesthesia* Anesthesia Assessment Anesthesia Assessment: Discussed sedation and/or anesthesia options, risks, benefits, and alternatives with patient/parents/legal guardian/POA. Questions invited. The patient/parents/legal guardian/POA seems to understand and agrees to proceed with anesthesia plan. Reviewed the physical assessment, medical history, allergy history and patient home medications list prior to surgery/procedure/anesthetic and documented any changes. Performed airway and anesthesia risk assessments. Anesthesia Type Anesthesia Type: MAC History Source History Obtained from:: Patient and Chart Anesthesia Focused Assessment* Temperature: 98.2 F Pulse Rate: 80 Blood Pressure: 122/71 Respiratory Rate: 18 Pulse Ox: 98 Oxygen Delivery Method: Room Air Airway Assessment Mouth opens: >3 cm Mallampati Score: I Teeth Condition: Chipped/Broken (Poor dentition.) and Missing (Patient is missing multiple teeth. Rest are tight.) Neck Range of motion (ROM): Full ROM Labs Anesthesia Preop lab: CBC WBC 4.2 K/mm3 (4.4-11.0) L 02/07/25 10:57 02/07/25 RBC 4.00 M/mm3 (4.6-6.2) L 02/07/25 10:57 02/07/25 Hgb 9.3 g/dL (13.0-16.5) L 02/07/25 10:57 02/07/25 Hct 31.6 % (40-54) L 02/07/25 10:57 02/07/25 Plt Count 100 K/mm3 (150-450) L 02/07/25 10:57 02/07/25 CHEMISTRY Potassium 4.4 mmol/L (3.3-5.1) 12/31/24 12:02 12/31/24 Sodium 135 mmol/L (133-145) 12/31/24 12:02 12/31/24 Magnesium 1.9 mg/dL (1.6-2.6) 03/18/24 11:15 03/18/24 Phosphorus 2.7 mg/dL (2.5-4.9) 03/18/24 11:15 03/18/24 BUN 10 mg/dL (4-19) 12/31/24 12:02 12/31/24 Creatinine 0.91 mg/dL (0.70-1.20) 12/31/24 12:02 12/31/24 Glucose 259 mg/dL (70-99) H 12/31/24 12:02 12/31/24 POC Glucose 275 mg/dL (74-106) H 12/18/24 20:03 12/18/24 TSH 2.35 uIU/mL (0.358-3.74) 01/02/24 08:03 01/02/24 COAG PT 17.5 SECONDS (11.7-14.9) H 12/31/24 12:02 12/31/24 Pre-Assessment Diagnosis/Proposed Procedure Planned Operative Procedure(s): EGD Anesthesia History 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 When Was Last Pacemaker Check QUESTION #4 FULL TEXT: You/Your Family Experience fever (hyperthermia) with Anesthesia Last Oral Intake Last Oral intake: Last Oral Intake NPO since 22:30 03/21/25 09:32 Meds taken in AM with sips of No 03/21/25 09:32 water? Meds patient instructed to take am of surgery PONV PONV - network architect manager: PONV - network architect manager Female No 03/16/25 10:24 HX of Motion Sickness No 03/16/25 10:24 HX of N/V After Surgery No 03/16/25 10:24 Non-Smoker Yes 03/16/25 10:24 Duration of Surgery greater No 03/16/25 10:24 than 60 minutes Number of Risk Factors 1 03/16/25 10:24 PONV Score Low Risk 03/16/25 10:24 Height & Weight Height & Weight: Anesthesia: Height & Weight Height 6 ft 3 in 03/21/25 09:32 Weight: 111 kg 03/21/25 09:32 Body Mass Index (BMI) 30.6 03/21/25 09:32 Respiratory Assessment Respiratory Assessment - network architect manager: Respiratory Tract Infection Hx - network architect manager Hx Respiratory Tract Infection No 03/16/25 10:24 STOP Sleep Apnea STOP Sleep Apnea - network architect manager: STOP Sleep Apnea - network architect manager Hx Hypertension No: HYPOTENSION 03/16/25 10:24 Hx Sleep Apnea Yes 03/16/25 10:24 CPAP No 03/16/25 10:24 BIPAP No 03/16/25 10:24 Do you snore loudly (louder than talking or can be heard Do you often feel tired/ fatigued/ sleepy during daytime? Has anyone observed you stop breathing during sleep? STOP Results Positive 03/16/25 10:24 QUESTION #5 FULL TEXT : Do you snore loudly (louder than talking or can be heard through closed doors)? 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 Specify any problems Hx of Preganancy in last 3 N/A 03/16/25 10:24 Months Nurse Filling Out Transfusion JZOLLINGE 03/16/25 10:24 & Questions: Date: 03/16/25 03/16/25 10:24 Time: 10:28 03/16/25 10:24 Patient unable to answer at this time (ie. confused, unrespo /Reproduction History /Reproductive History - network architect manager: /Reproductive Hx- network architect manager Hx Now No 03/16/25 10:24 Gestational Age (in weeks): EDC: Hx Hx Para Hx Section SAB No 03/16/25 10:24 Active Medications Active Medications: Current Medications Generic Name Dose Route Start Last Admin Trade Name Sania PRN Reason Stop Dose Admin Lactated Ringer's 1,000 mls @ 15 mls/hr 03/21/25 09:30 03/21/25 09:44 IV 15 mls/hr .Q48H CASSANDRA Administration PFSH Medical History History of esophageal varices with bleeding Low iron Anemia History of ulceration Sleep apnea Hypertension History of trigger finger Persistent atrial fibrillation Loss of hearing Wears contact lenses Depression Anxiety Alcohol use Marijuana use Migraine headache Loss of consciousness Gastric reflux Former smoker Chronic cough Shortness of breath on exertion History of edema History of echocardiogram History of stress test History of Holter monitoring Cardiology follow-up encounter History of atrial fibrillation Pain Impingement of left shoulder Arthrosis of left acromioclavicular joint Primary osteoarthritis, left shoulder Left shoulder pain Atrial flutter by electrocardiogram Ascites due to alcoholic cirrhosis Anemia due to acute blood loss History of esophageal varices Acute upper gastrointestinal bleeding Concentric left ventricular hypertrophy 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 Chronic back pain Restless leg syndrome Arthritis Stomach ulcer IBS (irritable bowel syndrome) Chronic pain Diabetes mellitus type II, controlled, with no complications Paroxysmal atrial fibrillation Home Medications ?Medication ?Instructions ?Recorded ?Last Taken ?Type Saccharomyces boulardii 250 mg 250 mg PO BID gut health 01/21/23 08/16/24 History capsule (Digest Probiotic (S.boulardii)) amino acids 82 gram-328 kcal/100 1 ea PO DAILY supplement 01/21/23 08/16/24 History gram oral powder (Complete Amino Acid Mix) handicap placard #1 ea 01/21/23 Unknown Rx sennosides 8.6 mg capsule (senna) 8.6 mg PO BID 04/08/23 08/16/24 History CURALIN 2 cap PO BID DIABETES 08/03/24 08/16/24 History rifaximin 550 mg tablet (Xifaxan) 550 mg PO BID irritable bowels #60 11/19/24 Unknown Rx tabs pantoprazole 40 mg tablet,delayed 40 mg PO BID #60 TABLETS 01/26/25 Unknown Rx release ascorbic acid (vitamin C) 500 mg 500 mg PO BID #60 tabs 02/01/25 Unknown Rx tablet cholecalciferol (vitamin D3) 1,250 1,250 mcg PO QWEEK 4 weeks #4 tabs 02/01/25 Unknown Rx mcg (50,000 unit) tablet midodrine 5 mg tablet 5 mg PO TID PRN SBP <100 mmhg 1 02/01/25 Unknown Rx month #90 tabs carvedilol 3.125 mg tablet (Coreg) 3.125 mg PO BID 03/16/25 03/20/25 History ferrous sulfate 325 mg (65 mg 325 mg PO .QD 03/16/25 Unknown History iron) tablet,delayed release Allergy/AdvReac Type Severity Reaction Status Date / Time doxepin AdvReac Severe Itching Verified 03/21/25 09:31 lactulose AdvReac Intermediate chills Verified 03/21/25 09:31 bupropion (From Wellbutrin) AdvReac Mild Other Verified 03/21/25 09:31 pregabalin (From Lyrica) AdvReac Mild Other Verified 03/21/25 09:31 enalapril AdvReac Other Verified 03/21/25 09:31 gabapentin (From Neurontin) AdvReac Other Verified 03/21/25 09:31 niacin AdvReac Other Verified 03/21/25 09:31 polyethylene glycol 3350 AdvReac Constipatio Verified 03/21/25 09:31 (From Miralax) n Femdahe-TGS-DlA Reductase AdvReac Pain in Verified 03/21/25 09:31 Inhibitor (Pmfxcdn-Tgy-Efv joints Reductase Inhibitor) Family History Sister Breast cancer Depression Osteoporosis Mother Cancer lung Father Heart disease Brother Liver disease Surgical History History of esophagogastroduodenoscopy (EGD) S/P TIPS (transjugular intrahepatic portosystemic shunt) History of carpal tunnel surgery of right wrist History of carpal tunnel surgery of left wrist History of esophagogastroduodenoscopy (EGD) H/O of nasal cauterization H/O oral surgery History of surgical procedure Social History household members: significant other current occupational status: disabled current occupation: disability due to pain Smoking Status: Former smoker quit date: 01/15/23 alcohol intake: former year quit: 2022 substance use type: does not use caffeine: Yes what type of physical activity do you participate in: walking frequency: daily do you feel safe at home: Yes Review of Systems (Anesthesia) ROS Narrative System reviewed and no additional complaints, except as documented.
--- NOTE | 2025-03-21 10:00 | EGD_PTH ---
PATIENT: FIDE HODGSON Jr. LOC: EN U#:[id number] AGE/SX: 60/M ROOM: RE03/21/[address]: Dr. Eliezer Loomis DO : 1965 BED: DIS: 03/21/2025 SPEC #: [id number] RECD: 03/21/25 12:36 STATUS: MISSY REMel #: [id number] JUICE: 03/21/25 10:[address]: Eliezer Loomis DEPT: SURGICAL PATHOLOGY RECD BY: Toni Mccoy ENTERED: 03/21/25 14:26 SP TYPE: EGD BIOPSY SHAWN DR: Dr. Cayla Camacho MD Tissues: A - Gastric mucous membrane Procedures: Immunohistochemical Stains Surgery Specimen Level IV HEADER Oxyntic OPERATION: EGD with biopsy PRE-OP DIAGNOSIS: Cirrhosis, acute upper gastrointestinal bleeding TISSUE SUBMITTED: A- Gastric body biopsy MICROSCOPIC DIAGNOSIS A. Gastric body, biopsy: - Oxyntic mucosa with no specific pathologic change. - IHC negative for H. Pylori organisms. MICROSCOPIC DESCRIPTION Slides are reviewed. All matched controls reacted appropriately. These tests were developed and their performance characteristics determined by [facility]. They may not have been cleared or approved by the U.S. Food and Drug Administration. The FDA has determined that such clearance or approval is not necessary. The above immunohistochemical markers are reviewed by the Pathologist. GROSS DESCRIPTION A. Received in fixative is one container labeled with the patient's name and designated Gastric body biopsy. The specimen consists of one irregular fragment of light davidson soft tissue that measures 0.6 cm. The specimen is totally submitted in one cassette. AR 03/21/2025 CPT:66941,19102
--- NOTE | 2025-03-21 10:48 | OP.EGD_ITS ---
Patient Name: Alan Padilla Procedure Date: 03/21/2025 10:22 AM Date of : 1965 Age: 60 Procedure: Upper GI endoscopy Indications: Epigastric abdominal pain, Follow-up of esophageal varices with bleeding Providers: Eliezer Loomis DO Referring MD: Cayla Camacho Md Medicines: Monitored Anesthesia Care Patient Profile: This is a 60 year old male. Refer to note in patient chart for documentation of history and physical. Patient has symptoms of acute epigastric abdominal pain. Complications: No immediate complications. Procedure: Pre-Anesthesia Assessment: - Prior to the procedure, a History and Physical was performed, and patient medications and allergies were reviewed. The patient is competent. The risks and benefits of the procedure and the sedation options and risks were discussed with the patient. All questions were answered and informed consent was obtained. Patient identification and proposed procedure were verified by the physician in the pre-procedure area. Mental Status Examination: alert and oriented. Airway Examination: normal oropharyngeal airway and neck mobility. Respiratory Examination: clear to auscultation. CV Examination: normal. Prophylactic Antibiotics: The patient does not require prophylactic antibiotics. Prior Anticoagulants: The patient has taken no anticoagulant or antiplatelet agents except for NSAID medication. ASA Grade Assessment: II - A patient with mild systemic disease. After reviewing the risks and benefits, the patient was deemed in satisfactory condition to undergo the procedure. The anesthesia plan was to use monitored anesthesia care (MAC). Immediately prior to administration of medications, the patient was re-assessed for adequacy to receive sedatives. The heart rate, respiratory rate, oxygen saturations, blood pressure, adequacy of pulmonary ventilation, and response to care were monitored throughout the procedure. The physical status of the patient was re-assessed after the procedure. After obtaining informed consent, the endoscope was passed under direct vision. Throughout the procedure, the patient's blood pressure, pulse, and oxygen saturations were monitored continuously. The gastroscope was introduced through the mouth, and advanced to the second part of duodenum. The upper GI endoscopy was accomplished without difficulty. The patient tolerated the procedure well. Scope In: 10:37:42 AM Scope Out: 10:40:47 AM Total Procedure Duration Time 0 hours 3 minutes 5 seconds Findings: The examined esophagus was normal. Patchy mildly erythematous mucosa without bleeding was found in the gastric body. Biopsies were taken with a cold forceps for histology. Biopsies were taken with a cold forceps for Helicobacter pylori testing. Verification of patient identification for the specimen was done. The examined duodenum was normal. Impression: - Normal esophagus. - Erythematous mucosa in the gastric body. Biopsied. - Normal examined duodenum. Recommendation: - Await pathology results. - Continue present medications. Procedure Code(s): --- Professional --- 66764, Esophagogastroduodenoscopy, flexible, transoral; with biopsy, single or multiple CPT copyright 2021 [employer]. All rights reserved. The codes documented in this report are preliminary and upon manager human resources review may be revised to meet current compliance requirements. Eliezer Loomis DO 03/21/2025 10:48:23 AM This report has been signed electronically. Number of Addenda: 0 Note Initiated On: 03/21/2025 10:22 AM
--- NOTE | 2025-03-21 10:48 | OP.PROVAT_ITS ---
03/21/2025 Cayla Camacho Md Re : Upper GI endoscopy procedure for Alan Padilla Dear Janice This procedure was performed on Friday, March 21, 2025. My impressions and recommendations are as follows: Impressions : - Normal esophagus. - Erythematous mucosa in the gastric body. Biopsied. - Normal examined duodenum. Recommendations : - Await pathology results. - Continue present medications. My findings are described in the full procedure note, which is enclosed. If I can be of further assistance, please feel free to contact me at . Sincerely, Eliezer Loomis, 03/21/2025 10:48:23 AM This report has been signed electronically.
--- NOTE | 2025-03-21 10:51 | PCM.POST.ANE ---
Anesthesia: Postop Eval I Current Vital Signs Temperature: 97 F Pulse Rate: 84 Blood Pressure: 93/56 Respiratory Rate: 16 Pulse Ox: 97 Oxygen Delivery Method: Room Air Assessment Airway patent: Yes Spontaneous unlabored respirations: Yes Mental status: Asleep nausea: No Vomiting: No Anesthesia Complication: No Fluid Hydration Crystalloid volume administer (ml): 300 Total IV fluid infused: 300 Progress Note Anesthesia document: Postop Eval 1 completed: Yes
--- NOTE | 2025-03-21 11:14 | PCM.POSTANE2 ---
Anesthesia Postop Eval I Sum Postop Eval Completion status Anesthesia document: Postop Eval 1 completed: Yes Anesthesia Postop Eval I Summary Anesthesia Postop Eval I Summary: Anesthesia Postop Eval I: Assessment Summary Airway patent Yes 03/21/25 10:52 [email or web address] Spontaneous unlabored Yes 03/21/25 10:52 [email or web address] respirations Mental status Asleep 03/21/25 10:52 [email or web address] nausea No 03/21/25 10:52 [email or web address] Vomiting No 03/21/25 10:52 [email or web address] Anesthesia Postop Eval I: Fluid Summary Crystalloid volume administer 300 03/21/25 10:52 [email or web address] (ml) Colloids volume administered ( ml) Blood Product volume administered (ml) Total IV fluid infused 300 03/21/25 10:52 [email or web address] Anesthesia Postop Eval I: Summary Notes Anesthesia Complication No 03/21/25 10:52 [email or web address] Anesthesia Complication Comment: Post-operative progress note Anesthesia: Postop Eval II Evaluation Mental status: Awake Pain Level: 0 nausea: No Vomiting: No
== END 2025-03-21 11:33 | disposition home or self-care (01) ==
LOC: EN 09:09 → AC 09:13
PROVIDERS: PCP Internal Medicine; Referring Provider Internal Medicine; Visit Provider Internal Medicine Gastroenterology
PROC: 0DJ08ZZ Inspection of Upper Intestinal Tract, Via Natural or Artificial Opening Endoscopic (ICD-10-PCS; CPT 43235; principal; 2025-03-21 09:55)
DX: K75.81 Nonalcoholic steatohepatitis (NASH) (principal); I48.91 Unspecified atrial fibrillation; E11.9 Type 2 diabetes mellitus without complications; Z82.49 Family history of ischemic heart disease and other diseases of the circulatory system; Z87.891 Personal history of nicotine dependence; I10 Essential (primary) hypertension; R10.13 Epigastric pain; K21.9 Gastro-esophageal reflux disease without esophagitis; R18.8 Other ascites
CPT/HCPCS: 43239; 82962; 88305; 88342; J2405